=== PATIENT | male | born 1940 | race Caucasian/White ===

== ENCOUNTER 2019-06-30 08:15 | Outpatient (RCR) | payer MEDICARE, SELFPAY ==
--- NOTE | 2019-02-03 17:52 | PT.OIE ---
Current Diagnoses Polyneuropathy, unspecified (02/03/19) Spinal stenosis, lumbar region without neurogenic claudication (02/03/19) Difficulty in walking, not elsewhere classified (02/03/19) Other abnormalities of gait and mobility (02/03/19) Weakness (02/03/19) Visit Care Team Role Provider Type Selena Bishop MD Attending Provider Non-Staff Primary Care Provider Specialty: Medical Address: [address] [place] [address], [id number] Email: Physical Therapy Initial Evaluation PT-OP-A Visit Information Start: 02/02/19 17:43 Freq: Status: Active Protocol: Document 02/03/19 11:22 [facility] (Rec: 02/03/19 12:13 [facility] [id number]) Out-Patient Physical Therapy Visit Information Visit Information Visit Type Initial Evaluation Visit Start Time 11:20 Visit Stop Time 12:00 Total Visit Minutes 40 Visit Number 1 Number of SENIOR CATEGORY MANAGER Visits 0 PT-OP-B Current Condition Start: 02/02/19 17:43 Freq: Status: Active Protocol: Document 02/03/19 11:22 [facility] (Rec: 02/03/19 12:13 [facility] [id number]) Current Condition History of Current Condition Onset Date >30 year back pain Current Complaints back pain & dec balance History of Current Condition Pt reports he wants to walk around without falling. Pt reports he has 2-3 per month and typically gets momentum fwd and cannot control that so falls fwd. No difference based on terrain. Pt reports history of back pain for 30 years with 2 fusion surgies and a laminectomy the 3rd surgery. Pt has a pain stimulator in his back which helped at first but as he got used it, its been less effective. Pt reprots it was done about 6 years ago. Pt reports he goes 1x.week to the [facility], he gets in the pool. Pt reports PT has been helpful in the past. Pt reports balance has been getting worse of the past year or 2 especially recently. Prior Treatments and Tests multiple bouts of PT, mult shots, mult MRIs Treatment Goals Patient/Caregiver Goals Dec falls, Be able to walk further distances (to car with ease, down driveway), get in and out of chairs easier, get in and out of bed and roll easier PT-OP-C Subjective Start: 02/02/19 17:43 Freq: Status: Active Protocol: Document 02/03/19 11:22 [facility] (Rec: 02/03/19 12:13 [facility] [id number]) Patient Questionnaires Oswestry Low Back Index Oswestry Score 52 Oswestry Impairment 40 to 59% Impaired (Score 40- 59) OP-PT Pain Assessment Location low back Pain Location Details upper and lower back Intensity 7 Scale Used Numeric (1 - 10) Description Sharp,Spasm,With Movement Frequency Daily Pain Duration a few min after stopping in LB , mid back pain takes time Pain Aggravating Factors Standing,Walking Other Pain Aggravating Factors getting out of chair, house cleaning(sweep & vaccuum), Pain Alleviating Factors Cold,Heat,Sitting PT-OP-D Balance Start: 02/02/19 17:43 Freq: Status: Active Protocol: Document 02/03/19 11:22 [facility] (Rec: 02/03/19 12:13 [facility] [id number]) Balance Tests De La Rosa Balance Test De La Rosa Balance Test Score 26 De La Rosa Impairment Rating 40 to 59% Impaired (Score 23- 33) PT-OP-F Manual Assessment Start: 02/02/19 17:43 Freq: Status: Active Protocol: Document 02/03/19 11:22 [facility] (Rec: 02/03/19 12:13 [facility] [id number]) Manual Assessments Soft Tissue Assessment Soft Tissue Mobility Assessment significant scar tissue tightness, ES B & QL B tightness PT-OP-G Mobility & Gait Start: 02/02/19 17:43 Freq: Status: Active Protocol: Document 02/03/19 11:22 [facility] (Rec: 02/03/19 12:13 [facility] [id number]) OP Gait Assessment Comments Gait Comments Pt amb with SPC with B lat leaning & fwd leaning. Dec overall push off PT-OP-M Strength Start: 02/02/19 17:43 Freq: Status: Active Protocol: Document 02/03/19 11:22 [facility] (Rec: 02/03/19 12:13 [facility] [id number]) Hip Strength Hip Manual Muscle Testing Left Flexion (L2) 4- Good- Extension (S1) 2+ Poor+ Abduction 3+ Fair+ External Rotation 3+ Fair+ Internal Rotation 3+ Fair+ Right Flexion (L2) 4 Good Extension (S1) 3 Fair Abduction 3+ Fair+ External Rotation 4- Good- Internal Rotation 4- Good- Knee Strength Knee Manual Muscle Testing Left Flexion (S2) 4 Good Extension (L3) 4+ Good+ Right Flexion (S2) 4 Good Extension (L3) 4 Good Ankle/Foot Strength Ankle and Foot Manual Muscle Testing Left Dorsiflexion (L4) 5 Normal Plantarflexion (S1) 5 Normal Right Dorsiflexion (L4) 4+ Good+ Plantarflexion (S1) 4+ Good+ Comments seated PF testing PT-OP-Q Treatments Start: 02/02/19 17:43 Freq: Status: Active Protocol: Document 02/03/19 11:22 [facility] (Rec: 02/03/19 12:13 [facility] [id number]) Self-Care/Home Management Treatment Education Patient Education Home Exercise Program Other Education edu to do sit to stands PT-OP-T Assessment and Plan Start: 02/02/19 17:43 Freq: Status: Active Protocol: Document 02/03/19 11:22 [facility] (Rec: 02/03/19 12:13 [facility] [id number]) Physical Therapy Assessment Rehab Potential Rehabilitation Potential Good Evaluation Complexity Number of Personal Factors/Comorbidities 3 or More Number of Body Systems Impaired 4 or More Clinical Presentation at Evaluation Evolving Impairments Impairments Activity Tolerance,Balance, Functional Activities, Functional Mobility,Gait,Pain, Posture,ROM,Soft Tissue Mobility,Strength,Transfers Goals gait Custodial Goal (LTG) Pt will be able to walk for 10 min without requiring a rest break. LTG Duration 05/06/18 mobility Short Term Goal (STG) Pt will be indep with log roll technique and report less difficulty with getting in and out of bed and rolling in bed . STG Duration 03/18/19 Picker Machine Operator Goal (LTG) Pt will be able to get in and out of a chair without use of UE LTG Duration 05/06/18 strength Short Term Goal (STG) Pt will be indep with HEP and will be going to gym 2-3x/week . STG Duration 03/18/19 Picker Machine Operator Goal (LTG) Pt will improve LE strength to at least 4+/5 in order to allow pt to return to typical activities and ADLs with greater ease. LTG Duration 05/06/18 fall risk Short Term Goal (STG) Pt will improve DE LA ROSA score to 35/56 to show dec fall risk with AD. STG Duration 03/18/19 Picker Machine Operator Goal (LTG) Pt will improve DE LA ROSA score to 50/56 in order to show pt to be less liekly to fall in the community. LTG Duration 05/06/18 Assessment Summary Assessment Pt presents with LBP and B neuropathy in feet with increased instances of falls and dec mobility at home. Pt is unable to walk from his car into a building or down his driveway without signifcant difficulty and is having on average 2-3 falls per month. He has overall dec LE and core strength and impaired gait and balance. He would benefit from skilled PT to improve his pain, improve his strength & ROM and improve gait mechanics & balance. Physical Therapy Plan Frequency and Duration Frequency of Treatment 2x/Week Duration of Treatment 3 months Plan of Care Start Date 02/03/19 Plan of Care End Date 05/06/18 Therapeutic Interventions Therapeutic Interventions Aquatic Therapy,Balance Training,Gait Training,Home Exercise Program,Joint Mobilizations,Manual Therapy, Neuromuscular Re-education, Patient/Caregiver Education, Self-Care/Home Management,Soft Tissue Mobilization,Taping, Therapeutic Activities, Therapeutic Exercises Modalities Cold Pack/Ice Massage,Electric Stimulation,Hot Packs, Infrared Therapy,Ultrasound Next Visit Focus/Plan Next Note Type Treatment Note Next Visit Plan s/l hip abd & clamshells, bridging if tolerated, Tabd stability, balance board, recumbant bike, scar STM
--- NOTE | 2019-02-08 14:34 | PT.OTN ---
Current Diagnoses Polyneuropathy, unspecified (02/08/19) Spinal stenosis, lumbar region without neurogenic claudication (02/08/19) Difficulty in walking, not elsewhere classified (02/08/19) Other abnormalities of gait and mobility (02/08/19) Weakness (02/08/19) Physical Therapy Treatment Note PT-OP-A Visit Information Start: 02/02/19 17:43 Freq: Status: Active Protocol: Document 02/08/19 13:54 [facility] (Rec: 02/08/19 14:33 [facility] [id number]) Out-Patient Physical Therapy Visit Information Visit Information Visit Type Treatment Note Visit Start Time 13:47 Visit Stop Time 14:38 Total Visit Minutes 51 Visit Number 1 Number of PROFESSOR OF ENGINEERING Visits 0 PT-OP-B Current Condition Start: 02/02/19 17:43 Freq: Status: Active Protocol: Document 02/03/19 11:22 [facility] (Rec: 02/03/19 12:13 [facility] [id number]) Current Condition History of Current Condition Onset Date >30 year back pain Current Complaints back pain & dec balance History of Current Condition Pt reports he wants to walk around without falling. Pt reports he has 2-3 per month and typically gets momentum fwd and cannot control that so falls fwd. No difference based on terrain. Pt reports history of back pain for 30 years with 2 fusion surgies and a laminectomy the 3rd surgery. Pt has a pain stimulator in his back which helped at first but as he got used it, its been less effective. Pt reprots it was done about 6 years ago. Pt reports he goes 1x.week to the [facility], he gets in the pool. Pt reports PT has been helpful in the past. Pt reports balance has been getting worse of the past year or 2 especially recently. Prior Treatments and Tests multiple bouts of PT, mult shots, mult MRIs Treatment Goals Patient/Caregiver Goals Dec falls, Be able to walk further distances (to car with ease, down driveway), get in and out of chairs easier, get in and out of bed and roll easier PT-OP-C Subjective Start: 02/02/19 17:43 Freq: Status: Active Protocol: Document 02/08/19 13:54 [facility] (Rec: 02/08/19 14:33 [facility] [id number]) OP-PT Subjective Patient Comments Patient Comments Pt reports he did not go to the pool this weekend. PT-OP-D Balance Start: 02/02/19 17:43 Freq: Status: Active Protocol: Document 02/03/19 11:22 [facility] (Rec: 02/03/19 12:13 [facility] [id number]) Balance Tests De La Rosa Balance Test De La Rosa Balance Test Score 26 De La Rosa Impairment Rating 40 to 59% Impaired (Score 23- 33) PT-OP-F Manual Assessment Start: 02/02/19 17:43 Freq: Status: Active Protocol: Document 02/03/19 11:22 [facility] (Rec: 02/03/19 12:13 [facility] [id number]) Manual Assessments Soft Tissue Assessment Soft Tissue Mobility Assessment significant scar tissue tightness, ES B & QL B tightness PT-OP-G Mobility & Gait Start: 02/02/19 17:43 Freq: Status: Active Protocol: Document 02/03/19 11:22 [facility] (Rec: 02/03/19 12:13 [facility] [id number]) OP Gait Assessment Comments Gait Comments Pt amb with SPC with B lat leaning & fwd leaning. Dec overall push off PT-OP-M Strength Start: 02/02/19 17:43 Freq: Status: Active Protocol: Document 02/03/19 11:22 [facility] (Rec: 02/03/19 12:13 [facility] [id number]) Hip Strength Hip Manual Muscle Testing Left Flexion (L2) 4- Good- Extension (S1) 2+ Poor+ Abduction 3+ Fair+ External Rotation 3+ Fair+ Internal Rotation 3+ Fair+ Right Flexion (L2) 4 Good Extension (S1) 3 Fair Abduction 3+ Fair+ External Rotation 4- Good- Internal Rotation 4- Good- Knee Strength Knee Manual Muscle Testing Left Flexion (S2) 4 Good Extension (L3) 4+ Good+ Right Flexion (S2) 4 Good Extension (L3) 4 Good Ankle/Foot Strength Ankle and Foot Manual Muscle Testing Left Dorsiflexion (L4) 5 Normal Plantarflexion (S1) 5 Normal Right Dorsiflexion (L4) 4+ Good+ Plantarflexion (S1) 4+ Good+ Comments seated PF testing PT-OP-Q Treatments Start: 02/02/19 17:43 Freq: Status: Active Protocol: Document 02/08/19 13:54 [facility] (Rec: 02/08/19 14:33 [facility] [id number]) Cardio Equipment Recumbent Elliptical (Biodex) Duration (Minutes) 4 Resistance 3 Recumbent Bicycle Duration (Minutes) 3 Resistance 3 Seat Position 7 Gym Equipment Shuttle Recovery Bilateral Squats Resistance 75# Shuttle Recovery Platform Stable Reps/Time 2x15 Therapeutic Exercises Supine Exercises bridge Side bilateral Reps/Minutes 15 Comments focus on core contraction Sidelying Exercises ER Sidelying Exercise Name clamshell Side bilateral Reps/Minutes 15 hip abd Side bilateral Reps/Minutes 15 Standing Exercises sit<>stand Reps/Minutes 10 Comments arms as needed from mat table Manual Therapy Treatment Soft Tissue Mobilization Scar tissue Mobilization Type Myofascial Release,Rolling, Strumming Intensity/Depth Moderate Body Position Sidelying Comments plunger & soft tissue PT-OP-R Modalities Start: 02/02/19 17:43 Freq: Status: Active Protocol: Document 02/08/19 13:54 [facility] (Rec: 02/08/19 14:34 [facility] [id number]) Hot Pack/Cold Pack Treatment Cold Pack Location lumbar Patient Position Sidelying Treatment Duration (minutes) 10 PT-OP-T Assessment and Plan Start: 02/02/19 17:43 Freq: Status: Active Protocol: Document 02/08/19 13:54 [facility] (Rec: 02/08/19 14:33 [facility] [id number]) Physical Therapy Assessment Goals gait Fdc Goal (LTG) Pt will be able to walk for 10 min without requiring a rest break. LTG Duration 05/06/18 mobility Short Term Goal (STG) Pt will be indep with log roll technique and report less difficulty with getting in and out of bed and rolling in bed . STG Duration 03/18/19 Fdc Goal (LTG) Pt will be able to get in and out of a chair without use of UE LTG Duration 05/06/18 strength Short Term Goal (STG) Pt will be indep with HEP and will be going to gym 2-3x/week . STG Duration 03/18/19 Lead Ingot Molder Goal (LTG) Pt will improve LE strength to at least 4+/5 in order to allow pt to return to typical activities and ADLs with greater ease. LTG Duration 05/06/18 fall risk Short Term Goal (STG) Pt will improve DE LA ROSA score to 35/56 to show dec fall risk with AD. STG Duration 03/18/19 Lead Ingot Molder Goal (LTG) Pt will improve DE LA ROSA score to 50/56 in order to show pt to be less liekly to fall in the community. LTG Duration 05/06/18 Assessment Summary Assessment Pt required cueing for form & core aciviation throughout exercises. He was educated and was receptive to some gym equipment that would be appropriate for him to use. Scar is significantly restricted and pt was able to tolerate without inc pain stm to the area Physical Therapy Plan Frequency and Duration Frequency of Treatment 2x/Week Duration of Treatment 3 months Plan of Care Start Date 02/03/19 Plan of Care End Date 05/06/18 Next Visit Focus/Plan Next Note Type Treatment Note Next Visit Plan review HEP, cont to work on balance, scar STM
--- NOTE | 2019-02-10 16:02 | PT.OTN ---
Current Diagnoses Polyneuropathy, unspecified (02/10/19) Spinal stenosis, lumbar region without neurogenic claudication (02/10/19) Difficulty in walking, not elsewhere classified (02/10/19) Other abnormalities of gait and mobility (02/10/19) Weakness (02/10/19) Physical Therapy Treatment Note PT-OP-A Visit Information Start: 02/02/19 17:43 Freq: Status: Active Protocol: Document 02/10/19 12:56 [facility] (Rec: 02/10/19 13:24 [facility] [id number]) Out-Patient Physical Therapy Visit Information Visit Information Visit Type Treatment Note Visit Start Time 11:21 Visit Stop Time 12:13 Total Visit Minutes 52 Visit Number 3 Number of DIRECTOR TEEN POST Visits 0 PT-OP-B Current Condition Start: 02/02/19 17:43 Freq: Status: Active Protocol: Document 02/03/19 11:22 [facility] (Rec: 02/03/19 12:13 [facility] [id number]) Current Condition History of Current Condition Onset Date >30 year back pain Current Complaints back pain & dec balance History of Current Condition Pt reports he wants to walk around without falling. Pt reports he has 2-3 per month and typically gets momentum fwd and cannot control that so falls fwd. No difference based on terrain. Pt reports history of back pain for 30 years with 2 fusion surgies and a laminectomy the 3rd surgery. Pt has a pain stimulator in his back which helped at first but as he got used it, its been less effective. Pt reprots it was done about 6 years ago. Pt reports he goes 1x.week to the [facility], he gets in the pool. Pt reports PT has been helpful in the past. Pt reports balance has been getting worse of the past year or 2 especially recently. Prior Treatments and Tests multiple bouts of PT, mult shots, mult MRIs Treatment Goals Patient/Caregiver Goals Dec falls, Be able to walk further distances (to car with ease, down driveway), get in and out of chairs easier, get in and out of bed and roll easier PT-OP-C Subjective Start: 02/02/19 17:43 Freq: Status: Active Protocol: Document 02/10/19 12:56 [facility] (Rec: 02/10/19 13:24 [facility] [id number]) OP-PT Subjective Patient Comments Patient Comments Pt remarked that he has been going to the gym with his since the last visit. He commented that he has experienced some soreness since his last PT session and time at the gym. He has been compliant with his HEP. PT-OP-D Balance Start: 02/02/19 17:43 Freq: Status: Active Protocol: Document 02/03/19 11:22 [facility] (Rec: 02/03/19 12:13 [facility] [id number]) Balance Tests De La Rosa Balance Test De La Rosa Balance Test Score 26 De La Rosa Impairment Rating 40 to 59% Impaired (Score 23- 33) PT-OP-F Manual Assessment Start: 02/02/19 17:43 Freq: Status: Active Protocol: Document 02/03/19 11:22 [facility] (Rec: 02/03/19 12:13 [facility] [id number]) Manual Assessments Soft Tissue Assessment Soft Tissue Mobility Assessment significant scar tissue tightness, ES B & QL B tightness PT-OP-G Mobility & Gait Start: 02/02/19 17:43 Freq: Status: Active Protocol: Document 02/03/19 11:22 [facility] (Rec: 02/03/19 12:13 [facility] [id number]) OP Gait Assessment Comments Gait Comments Pt amb with SPC with B lat leaning & fwd leaning. Dec overall push off PT-OP-M Strength Start: 02/02/19 17:43 Freq: Status: Active Protocol: Document 02/03/19 11:22 [facility] (Rec: 02/03/19 12:13 [facility] [id number]) Hip Strength Hip Manual Muscle Testing Left Flexion (L2) 4- Good- Extension (S1) 2+ Poor+ Abduction 3+ Fair+ External Rotation 3+ Fair+ Internal Rotation 3+ Fair+ Right Flexion (L2) 4 Good Extension (S1) 3 Fair Abduction 3+ Fair+ External Rotation 4- Good- Internal Rotation 4- Good- Knee Strength Knee Manual Muscle Testing Left Flexion (S2) 4 Good Extension (L3) 4+ Good+ Right Flexion (S2) 4 Good Extension (L3) 4 Good Ankle/Foot Strength Ankle and Foot Manual Muscle Testing Left Dorsiflexion (L4) 5 Normal Plantarflexion (S1) 5 Normal Right Dorsiflexion (L4) 4+ Good+ Plantarflexion (S1) 4+ Good+ Comments seated PF testing PT-OP-Q Treatments Start: 02/02/19 17:43 Freq: Status: Active Protocol: Document 02/10/19 12:56 [facility] (Rec: 02/10/19 13:24 [facility] [id number]) Cardio Equipment Recumbent Stepper (Sci-Fit) Duration (Minutes) 6 Resistance 4 Gym Equipment Shuttle Recovery Bilateral Squats Resistance 75# Shuttle Recovery Platform Stable Reps/Time 2x20 Shuttle Balance blue Details normal, narrow BRENNON, semi tandem Reps/Duration 1-2 min holds in each position Comments this was an acceptable challenge for the pt to maintain balance Therapeutic Exercises Supine Exercises bridge Side bilateral Reps/Minutes 15 Comments cued for core contraction, arms elevated, L2 band around knees for aBd Sidelying Exercises clam shells Sidelying Exercise Name clam shells Side left Resistance L2 Reps/Minutes 20 Comments did not aggravate pt low back pain hip abd Side bilateral Resistance L2 around knees Reps/Minutes 20 Comments straight left leg hip aB aggravated back pain, so that side withheld Manual Therapy Treatment Soft Tissue Mobilization Scar tissue Body Location low back Mobilization Type Myofascial Release, Oscillations,Rolling,Strumming ,Sustained Pressure Intensity/Depth Moderate Body Position Sidelying Comments plunger & soft tissue PT-OP-R Modalities Start: 02/02/19 17:43 Freq: Status: Active Protocol: Document 02/10/19 12:56 [facility] (Rec: 02/10/19 13:24 [facility] [id number]) Hot Pack/Cold Pack Treatment Cold Pack Location lumbar Patient Position Sidelying Treatment Duration (minutes) 10 Patient Tolerance Good Comments check pt's skin prior to icing and post-application with no significant findings. Pt typically responds well to ice and reoprts that he uses it at home to relieve pain PT-OP-T Assessment and Plan Start: 02/02/19 17:43 Freq: Status: Active Protocol: Document 02/10/19 12:56 [facility] (Rec: 02/10/19 13:24 [facility] [id number]) Physical Therapy Assessment Goals gait Fdc Goal (LTG) Pt will be able to walk for 10 min without requiring a rest break. LTG Duration 05/06/19 mobility Short Term Goal (STG) Pt will be indep with log roll technique and report less difficulty with getting in and out of bed and rolling in bed . STG Duration 03/18/19 Speech Language Therapist Goal (LTG) Pt will be able to get in and out of a chair without use of UE LTG Duration 05/06/19 strength Short Term Goal (STG) Pt will be indep with HEP and will be going to gym 2-3x/week . STG Duration 03/18/19 Fdc Goal (LTG) Pt will improve LE strength to at least 4+/5 in order to allow pt to return to typical activities and ADLs with greater ease. LTG Duration 05/06/19 fall risk Short Term Goal (STG) Pt will improve DE LA ROSA score to 35/56 to show dec fall risk with AD. STG Duration 03/18/19 Fdc Goal (LTG) Pt will improve DE LA ROSA score to 50/56 in order to show pt to be less liekly to fall in the community. LTG Duration 05/06/19 Assessment Summary Assessment Reviewed with pt names, resources, and proper use of gym equipment that would be appropriate for pt. Pt has been compliant with his HEP and has been managing to go to the gym to workout. He displayed increased ability to participate in balance activities, but was still acceptably challenged and required cueing for core activation. Straight leg aB in sidelying was provocative to pt's pain for left leg, so activity was withheld and replaced with clamshells. Pt' s scar seems to restrict and give a tight feeling for many leg movements, but showed improvement folling scar mobs and soft tissue massage. Physical Therapy Plan Next Visit Focus/Plan Next Note Type Treatment Note Next Visit Plan continue to work on balance activities to challenge pt, scar STM, core stabilization exercises, hip stabilizer strengthening
--- NOTE | 2019-02-15 18:36 | PT.OTN ---
Current Diagnoses Polyneuropathy, unspecified (02/15/19) Spinal stenosis, lumbar region without neurogenic claudication (02/15/19) Difficulty in walking, not elsewhere classified (02/15/19) Other abnormalities of gait and mobility (02/15/19) Weakness (02/15/19) Physical Therapy Treatment Note PT-OP-A Visit Information Start: 02/02/19 17:43 Freq: Status: Active Protocol: Document 02/15/19 10:33 MT (Rec: 02/15/19 13:21 MT [email or web address]) Out-Patient Physical Therapy Visit Information Visit Information Visit Start Time 10:33 Visit Stop Time 11:24 Total Visit Minutes 51 Visit Number 4 Number of BOARDMARKER Visits 0 PT-OP-B Current Condition Start: 02/02/19 17:43 Freq: Status: Active Protocol: Document 02/03/19 11:22 [facility] (Rec: 02/03/19 12:13 [facility] [id number]) Current Condition History of Current Condition Onset Date >30 year back pain Current Complaints back pain & dec balance History of Current Condition Pt reports he wants to walk around without falling. Pt reports he has 2-3 per month and typically gets momentum fwd and cannot control that so falls fwd. No difference based on terrain. Pt reports history of back pain for 30 years with 2 fusion surgies and a laminectomy the 3rd surgery. Pt has a pain stimulator in his back which helped at first but as he got used it, its been less effective. Pt reprots it was done about 6 years ago. Pt reports he goes 1x.week to the [facility], he gets in the pool. Pt reports PT has been helpful in the past. Pt reports balance has been getting worse of the past year or 2 especially recently. Prior Treatments and Tests multiple bouts of PT, mult shots, mult MRIs Treatment Goals Patient/Caregiver Goals Dec falls, Be able to walk further distances (to car with ease, down driveway), get in and out of chairs easier, get in and out of bed and roll easier PT-OP-C Subjective Start: 02/02/19 17:43 Freq: Status: Active Protocol: Document 02/15/19 10:33 MT (Rec: 02/15/19 13:21 MT [email or web address]) OP-PT Subjective Patient Comments Patient Comments Pt remarked that he has been able to go to the gym a couple times this week, but some of the machines were busy. Pt stated that he has been feeling dizzy a lot lately. He was dizzy standing up to walk to the clinic. Pt and pt 's reported that pt has experienced 2 falls since the last visit. once picking up an object from the floor and once from the bed when his sat down on the oterh side. PT-OP-D Balance Start: 02/02/19 17:43 Freq: Status: Active Protocol: Document 02/03/19 11:22 [facility] (Rec: 02/03/19 12:13 [facility] [id number]) Balance Tests De La Rosa Balance Test De La Rosa Balance Test Score 26 De La Rosa Impairment Rating 40 to 59% Impaired (Score 23- 33) PT-OP-F Manual Assessment Start: 02/02/19 17:43 Freq: Status: Active Protocol: Document 02/03/19 11:22 [facility] (Rec: 02/03/19 12:13 [facility] [id number]) Manual Assessments Soft Tissue Assessment Soft Tissue Mobility Assessment significant scar tissue tightness, ES B & QL B tightness PT-OP-G Mobility & Gait Start: 02/02/19 17:43 Freq: Status: Active Protocol: Document 02/03/19 11:22 [facility] (Rec: 02/03/19 12:13 [facility] [id number]) OP Gait Assessment Comments Gait Comments Pt amb with SPC with B lat leaning & fwd leaning. Dec overall push off PT-OP-M Strength Start: 02/02/19 17:43 Freq: Status: Active Protocol: Document 02/03/19 11:22 [facility] (Rec: 02/03/19 12:13 [facility] [id number]) Hip Strength Hip Manual Muscle Testing Left Flexion (L2) 4- Good- Extension (S1) 2+ Poor+ Abduction 3+ Fair+ External Rotation 3+ Fair+ Internal Rotation 3+ Fair+ Right Flexion (L2) 4 Good Extension (S1) 3 Fair Abduction 3+ Fair+ External Rotation 4- Good- Internal Rotation 4- Good- Knee Strength Knee Manual Muscle Testing Left Flexion (S2) 4 Good Extension (L3) 4+ Good+ Right Flexion (S2) 4 Good Extension (L3) 4 Good Ankle/Foot Strength Ankle and Foot Manual Muscle Testing Left Dorsiflexion (L4) 5 Normal Plantarflexion (S1) 5 Normal Right Dorsiflexion (L4) 4+ Good+ Plantarflexion (S1) 4+ Good+ Comments seated PF testing PT-OP-Q Treatments Start: 02/02/19 17:43 Freq: Status: Active Protocol: Document 02/15/19 10:33 MT (Rec: 02/15/19 13:21 MT [email or web address]) Gym Equipment Shuttle Recovery Bilateral Squats Resistance 87# Shuttle Recovery Platform Stable Reps/Time 2x20 Shuttle Balance blue Details fwd/bck; side/side Reps/Duration 1-2 min holds in each position Comments Pt was challenged to keep his balance during this activity. Manual Therapy Treatment Soft Tissue Mobilization Scar tissue Body Location low back Mobilization Type Myofascial Release, Oscillations,Rolling,Strumming ,Sustained Pressure Intensity/Depth Moderate Body Position Sidelying Comments plunger & soft tissue Self-Care/Home Management Treatment Education Patient Education Fall Risk,Safety Activities Self-Care/Home Management Activities Pt was experiencing dizziness and was staggering while getting up to walk back to gym . Pt was asked to sit back down and blood pressure was assessed and found to be 139/ 65. Pt reported his dizziness had subsided before BP reading was completed. PT-OP-R Modalities Start: 02/02/19 17:43 Freq: Status: Active Protocol: Document 02/15/19 10:33 MT (Rec: 02/15/19 13:21 MT [email or web address]) Hot Pack/Cold Pack Treatment Cold Pack Location lumbar Patient Position Sidelying Treatment Duration (minutes) 10 Patient Tolerance Good Comments check pt's skin prior to icing and post-application with no significant findings. Pt typically responds well to ice and reoprts that he uses it at home to relieve pain PT-OP-T Assessment and Plan Start: 02/02/19 17:43 Freq: Status: Active Protocol: Document 02/15/19 10:33 MT (Rec: 02/15/19 13:21 MT [email or web address]) Physical Therapy Assessment Goals gait Furniture And Bedding Inspector Goal (LTG) Pt will be able to walk for 10 min without requiring a rest break. LTG Duration 05/06/19 mobility Short Term Goal (STG) Pt will be indep with log roll technique and report less difficulty with getting in and out of bed and rolling in bed . STG Duration 03/18/19 Group Home Goal (LTG) Pt will be able to get in and out of a chair without use of UE LTG Duration 05/06/19 strength Short Term Goal (STG) Pt will be indep with HEP and will be going to gym 2-3x/week . STG Duration 03/18/19 Furniture And Bedding Inspector Goal (LTG) Pt will improve LE strength to at least 4+/5 in order to allow pt to return to typical activities and ADLs with greater ease. LTG Duration 05/06/19 fall risk Short Term Goal (STG) Pt will improve DE LA ROSA score to 35/56 to show dec fall risk with AD. STG Duration 03/18/19 Group Home Goal (LTG) Pt will improve DE LA ROSA score to 50/56 in order to show pt to be less liekly to fall in the community. LTG Duration 05/06/19 Assessment Summary Assessment Pt has been experiencing increased dizziness. He seemed to have a greater challenge in maintaining his balance during balance activities that were not so challengin last time and staggered often from sitting to standing transitions. Pt was advised to take his time in between standing and sitting and to utilize his microbiology lab assistant device for reaching objects out of reach in order to reduce risks of falls. Pt commented that he has been getting pain in his thoracic spine, which responded well to STM at the superior portion of his scar. Physical Therapy Plan Next Visit Focus/Plan Next Note Type Treatment Note Next Visit Plan continue to work on balance activities to challenge pt, scar STM, core stabilization exercises, hip stabilizer strengthening
--- NOTE | 2019-02-17 15:25 | PT.OTN ---
Current Diagnoses Polyneuropathy, unspecified (02/17/19) Spinal stenosis, lumbar region without neurogenic claudication (02/17/19) Difficulty in walking, not elsewhere classified (02/17/19) Other abnormalities of gait and mobility (02/17/19) Weakness (02/17/19) Physical Therapy Treatment Note PT-OP-A Visit Information Start: 02/02/19 17:43 Freq: Status: Active Protocol: Document 02/17/19 10:36 MT (Rec: 02/17/19 14:04 MT [email or web address]) Out-Patient Physical Therapy Visit Information Visit Information Visit Type Treatment Note Visit Start Time 10:36 Visit Stop Time 11:25 Total Visit Minutes 49 Visit Number 5 Number of CHARGING OPERATOR Visits 0 PT-OP-B Current Condition Start: 02/02/19 17:43 Freq: Status: Active Protocol: Document 02/03/19 11:22 [facility] (Rec: 02/03/19 12:13 [facility] [id number]) Current Condition History of Current Condition Onset Date >30 year back pain Current Complaints back pain & dec balance History of Current Condition Pt reports he wants to walk around without falling. Pt reports he has 2-3 per month and typically gets momentum fwd and cannot control that so falls fwd. No difference based on terrain. Pt reports history of back pain for 30 years with 2 fusion surgies and a laminectomy the 3rd surgery. Pt has a pain stimulator in his back which helped at first but as he got used it, its been less effective. Pt reprots it was done about 6 years ago. Pt reports he goes 1x.week to the [facility], he gets in the pool. Pt reports PT has been helpful in the past. Pt reports balance has been getting worse of the past year or 2 especially recently. Prior Treatments and Tests multiple bouts of PT, mult shots, mult MRIs Treatment Goals Patient/Caregiver Goals Dec falls, Be able to walk further distances (to car with ease, down driveway), get in and out of chairs easier, get in and out of bed and roll easier PT-OP-C Subjective Start: 02/02/19 17:43 Freq: Status: Active Protocol: Document 02/17/19 10:36 MT (Rec: 02/17/19 14:04 MT [email or web address]) OP-PT Subjective Patient Comments Patient Comments Pt was able to go to the gym yesterday to exercise and says that it has been going well. He reoprts continuing to feel dizzy and not having good balance over the past couple of days PT-OP-D Balance Start: 02/02/19 17:43 Freq: Status: Active Protocol: Document 02/03/19 11:22 [facility] (Rec: 02/03/19 12:13 [facility] [id number]) Balance Tests De La Rosa Balance Test De La Rosa Balance Test Score 26 De La Rosa Impairment Rating 40 to 59% Impaired (Score 23- 33) PT-OP-F Manual Assessment Start: 02/02/19 17:43 Freq: Status: Active Protocol: Document 02/03/19 11:22 [facility] (Rec: 02/03/19 12:13 [facility] [id number]) Manual Assessments Soft Tissue Assessment Soft Tissue Mobility Assessment significant scar tissue tightness, ES B & QL B tightness PT-OP-G Mobility & Gait Start: 02/02/19 17:43 Freq: Status: Active Protocol: Document 02/03/19 11:22 [facility] (Rec: 02/03/19 12:13 [facility] [id number]) OP Gait Assessment Comments Gait Comments Pt amb with SPC with B lat leaning & fwd leaning. Dec overall push off PT-OP-M Strength Start: 02/02/19 17:43 Freq: Status: Active Protocol: Document 02/03/19 11:22 [facility] (Rec: 02/03/19 12:13 [facility] [id number]) Hip Strength Hip Manual Muscle Testing Left Flexion (L2) 4- Good- Extension (S1) 2+ Poor+ Abduction 3+ Fair+ External Rotation 3+ Fair+ Internal Rotation 3+ Fair+ Right Flexion (L2) 4 Good Extension (S1) 3 Fair Abduction 3+ Fair+ External Rotation 4- Good- Internal Rotation 4- Good- Knee Strength Knee Manual Muscle Testing Left Flexion (S2) 4 Good Extension (L3) 4+ Good+ Right Flexion (S2) 4 Good Extension (L3) 4 Good Ankle/Foot Strength Ankle and Foot Manual Muscle Testing Left Dorsiflexion (L4) 5 Normal Plantarflexion (S1) 5 Normal Right Dorsiflexion (L4) 4+ Good+ Plantarflexion (S1) 4+ Good+ Comments seated PF testing PT-OP-Q Treatments Start: 02/02/19 17:43 Freq: Status: Active Protocol: Document 02/17/19 10:36 MT (Rec: 02/17/19 14:04 MT [email or web address]) Cardio Equipment Recumbent Stepper (Sci-Fit) Duration (Minutes) 8 Resistance 6 Gym Equipment Shuttle Balance blue Details fwd/bck; side/side, WBOS and NBOS Reps/Duration 1-2 min holds in each position Comments Pt was very stable with the fwd/bck stabilization. He was challenged by the NBOS activities requiring Shu at times to prevent backward lean . Therapeutic Exercises Supine Exercises bridge Side bilateral Reps/Minutes 15 Comments cued for core contraction, arms elevated, L2 band around knees for aBd Standing Exercises 4 way hip Standing Exercise Name abd/ext Side bilateral Resistance none Reps/Minutes 15 per side and direction Comments Pt demonstrated increased difficulty when performing the movement on L side Manual Therapy Treatment Soft Tissue Mobilization Scar tissue Body Location low back Mobilization Type Myofascial Release, Oscillations,Rolling,Strumming ,Sustained Pressure Intensity/Depth Moderate Body Position Sidelying Comments pt reported that his mid back felt better after receiving STM to the area last friday. His tightness was mostly in his lower back. Self-Care/Home Management Treatment Activities Self-Care/Home Management Activities Pt was experiencing dizziness when immediately getting up to walk back to gym. Pt was asked to sit back down and blood pressure was assessed and found to be 136/80. PT-OP-R Modalities Start: 02/02/19 17:43 Freq: Status: Active Protocol: Document 02/17/19 10:36 MT (Rec: 02/17/19 14:05 MT [email or web address]) Hot Pack/Cold Pack Treatment Cold Pack Location lumbar Patient Position Sidelying Treatment Duration (minutes) 10 Patient Tolerance Good Comments check pt's skin prior to icing and post-application with no significant findings. Pt typically responds well to ice and reoprts that he uses it at home to relieve pain PT-OP-T Assessment and Plan Start: 02/02/19 17:43 Freq: Status: Active Protocol: Document 02/17/19 10:36 MT (Rec: 02/17/19 14:04 MT [email or web address]) Physical Therapy Assessment Goals gait Alf Goal (LTG) Pt will be able to walk for 10 min without requiring a rest break. LTG Duration 05/06/19 mobility Short Term Goal (STG) Pt will be indep with log roll technique and report less difficulty with getting in and out of bed and rolling in bed . STG Duration 03/18/19 Alf Goal (LTG) Pt will be able to get in and out of a chair without use of UE LTG Duration 05/06/19 strength Short Term Goal (STG) Pt will be indep with HEP and will be going to gym 2-3x/week . STG Duration 03/18/19 Alf Goal (LTG) Pt will improve LE strength to at least 4+/5 in order to allow pt to return to typical activities and ADLs with greater ease. LTG Duration 05/06/19 fall risk Short Term Goal (STG) Pt will improve DE LA ROSA score to 35/56 to show dec fall risk with AD. STG Duration 03/18/19 Tax Expert Goal (LTG) Pt will improve DE LA ROSA score to 50/56 in order to show pt to be less liekly to fall in the community. LTG Duration 05/06/19 Assessment Summary Assessment Pt continues to be reporting dizziness. He is challenged with balance activities, especially with NBOS. Pt's pain in his thoracic spine from last session was relieved from STM and did not return. His scar mobility and back pain improved with STM and subsequent icing. Physical Therapy Plan Next Visit Focus/Plan Next Note Type Treatment Note Next Visit Plan continue to work on balance activities with challenge in NBOS, core stabilization, hip stabilization strength
--- NOTE | 2019-02-25 13:48 | PT.OTN ---
Current Diagnoses Polyneuropathy, unspecified (02/25/19) Spinal stenosis, lumbar region without neurogenic claudication (02/25/19) Difficulty in walking, not elsewhere classified (02/25/19) Other abnormalities of gait and mobility (02/25/19) Weakness (02/25/19) Physical Therapy Treatment Note PT-OP-A Visit Information Start: 02/02/19 17:43 Freq: Status: Active Protocol: Document 02/25/19 13:03 [facility] (Rec: 02/25/19 13:48 [facility] [id number]) Out-Patient Physical Therapy Visit Information Visit Information Visit Type Treatment Note Visit Start Time 13:00 Visit Stop Time 13:50 Total Visit Minutes 50 Visit Number 6 Number of STEWARD/STEWARDESS SECOND CLASS Visits 0 PT-OP-B Current Condition Start: 02/02/19 17:43 Freq: Status: Active Protocol: Document 02/03/19 11:22 [facility] (Rec: 02/03/19 12:13 [facility] [id number]) Current Condition History of Current Condition Onset Date >30 year back pain Current Complaints back pain & dec balance History of Current Condition Pt reports he wants to walk around without falling. Pt reports he has 2-3 per month and typically gets momentum fwd and cannot control that so falls fwd. No difference based on terrain. Pt reports history of back pain for 30 years with 2 fusion surgies and a laminectomy the 3rd surgery. Pt has a pain stimulator in his back which helped at first but as he got used it, its been less effective. Pt reprots it was done about 6 years ago. Pt reports he goes 1x.week to the [facility], he gets in the pool. Pt reports PT has been helpful in the past. Pt reports balance has been getting worse of the past year or 2 especially recently. Prior Treatments and Tests multiple bouts of PT, mult shots, mult MRIs Treatment Goals Patient/Caregiver Goals Dec falls, Be able to walk further distances (to car with ease, down driveway), get in and out of chairs easier, get in and out of bed and roll easier PT-OP-C Subjective Start: 02/02/19 17:43 Freq: Status: Active Protocol: Document 02/25/19 13:03 [facility] (Rec: 02/25/19 13:48 [facility] [id number]) OP-PT Subjective Patient Comments Patient Comments Pt reports no falls since last session but some near fall. Back cont to aggrevate PT-OP-D Balance Start: 02/02/19 17:43 Freq: Status: Active Protocol: Document 02/03/19 11:22 [facility] (Rec: 02/03/19 12:13 [facility] [id number]) Balance Tests De La Rosa Balance Test De La Rosa Balance Test Score 26 De La Rosa Impairment Rating 40 to 59% Impaired (Score 23- 33) PT-OP-F Manual Assessment Start: 02/02/19 17:43 Freq: Status: Active Protocol: Document 02/03/19 11:22 [facility] (Rec: 02/03/19 12:13 [facility] [id number]) Manual Assessments Soft Tissue Assessment Soft Tissue Mobility Assessment significant scar tissue tightness, ES B & QL B tightness PT-OP-G Mobility & Gait Start: 02/02/19 17:43 Freq: Status: Active Protocol: Document 02/03/19 11:22 [facility] (Rec: 02/03/19 12:13 [facility] [id number]) OP Gait Assessment Comments Gait Comments Pt amb with SPC with B lat leaning & fwd leaning. Dec overall push off PT-OP-M Strength Start: 02/02/19 17:43 Freq: Status: Active Protocol: Document 02/03/19 11:22 [facility] (Rec: 02/03/19 12:13 [facility] [id number]) Hip Strength Hip Manual Muscle Testing Left Flexion (L2) 4- Good- Extension (S1) 2+ Poor+ Abduction 3+ Fair+ External Rotation 3+ Fair+ Internal Rotation 3+ Fair+ Right Flexion (L2) 4 Good Extension (S1) 3 Fair Abduction 3+ Fair+ External Rotation 4- Good- Internal Rotation 4- Good- Knee Strength Knee Manual Muscle Testing Left Flexion (S2) 4 Good Extension (L3) 4+ Good+ Right Flexion (S2) 4 Good Extension (L3) 4 Good Ankle/Foot Strength Ankle and Foot Manual Muscle Testing Left Dorsiflexion (L4) 5 Normal Plantarflexion (S1) 5 Normal Right Dorsiflexion (L4) 4+ Good+ Plantarflexion (S1) 4+ Good+ Comments seated PF testing PT-OP-Q Treatments Start: 02/02/19 17:43 Freq: Status: Active Protocol: Document 02/25/19 13:03 [facility] (Rec: 02/25/19 13:48 [facility] [id number]) Gym Equipment Shuttle Recovery Bilateral Squats Resistance 87# Shuttle Recovery Platform Stable Reps/Time 2x20 Shuttle Balance blue Comments Fwd: WBOS EC, NBOS, staggered stance B side: WBOS & NBOS Therapeutic Exercises Standing Exercises stretch Standing Exercise Name feng pose Side bilateral Reps/Minutes 2(w/5 sec holds) Neuro Re-Education Treatment Balance Activities hurdles Details about 1 ft apart Reps/Duration 6 reps sidestep Reps/Duration 20ft Comments focus on core stability w/o rail use PT-OP-R Modalities Start: 02/02/19 17:43 Freq: Status: Active Protocol: Document 02/25/19 13:03 [facility] (Rec: 02/25/19 13:48 [facility] [id number]) Hot Pack/Cold Pack Treatment Cold Pack Location lumbar Patient Position Sidelying Treatment Duration (minutes) 10 Patient Tolerance Good PT-OP-T Assessment and Plan Start: 02/02/19 17:43 Freq: Status: Active Protocol: Document 02/25/19 13:03 [facility] (Rec: 02/25/19 13:48 [facility] [id number]) Physical Therapy Assessment Goals gait Dispensing Operator Goal (LTG) Pt will be able to walk for 10 min without requiring a rest break. LTG Duration 05/06/19 mobility Short Term Goal (STG) Pt will be indep with log roll technique and report less difficulty with getting in and out of bed and rolling in bed . STG Duration 03/18/19 Usp Goal (LTG) Pt will be able to get in and out of a chair without use of UE LTG Duration 05/06/19 strength Short Term Goal (STG) Pt will be indep with HEP and will be going to gym 2-3x/week . STG Duration 03/18/19 Dispensing Operator Goal (LTG) Pt will improve LE strength to at least 4+/5 in order to allow pt to return to typical activities and ADLs with greater ease. LTG Duration 05/06/19 fall risk Short Term Goal (STG) Pt will improve DE LA ROSA score to 35/56 to show dec fall risk with AD. STG Duration 03/18/19 Dispensing Operator Goal (LTG) Pt will improve DE LA ROSA score to 50/56 in order to show pt to be less liekly to fall in the community. LTG Duration 05/06/19 Assessment Summary Assessment Pt improved ability to balance today. He was challenged by hurdles. Physical Therapy Plan Frequency and Duration Frequency of Treatment 2x/Week Duration of Treatment 3 months Plan of Care Start Date 02/03/19 Plan of Care End Date 05/06/18 Next Visit Focus/Plan Next Note Type Treatment Note Next Visit Plan continue to work on balance activities with challenge in NBOS, core stabilization, hip stabilization strength
--- NOTE | 2019-03-01 15:58 | PT.OTN ---
Current Diagnoses Polyneuropathy, unspecified (03/01/19) Spinal stenosis, lumbar region without neurogenic claudication (03/01/19) Difficulty in walking, not elsewhere classified (03/01/19) Other abnormalities of gait and mobility (03/01/19) Weakness (03/01/19) Physical Therapy Treatment Note PT-OP-A Visit Information Start: 02/02/19 17:43 Freq: Status: Active Protocol: Document 03/01/19 10:15 ALFREDITO (Rec: 03/01/19 15:58 LJ [id number]) Out-Patient Physical Therapy Visit Information Visit Information Visit Type Aquatic Treatment Note Visit Start Time 10:15 Visit Stop Time 11:00 Total Visit Minutes 45 Visit Number 7 Number of SYSTEMS NAVIGATOR Visits 1 PT-OP-B Current Condition Start: 02/02/19 17:43 Freq: Status: Active Protocol: Document 02/03/19 11:22 [facility] (Rec: 02/03/19 12:13 [facility] [id number]) Current Condition History of Current Condition Onset Date >30 year back pain Current Complaints back pain & dec balance History of Current Condition Pt reports he wants to walk around without falling. Pt reports he has 2-3 per month and typically gets momentum fwd and cannot control that so falls fwd. No difference based on terrain. Pt reports history of back pain for 30 years with 2 fusion surgies and a laminectomy the 3rd surgery. Pt has a pain stimulator in his back which helped at first but as he got used it, its been less effective. Pt reprots it was done about 6 years ago. Pt reports he goes 1x.week to the [facility], he gets in the pool. Pt reports PT has been helpful in the past. Pt reports balance has been getting worse of the past year or 2 especially recently. Prior Treatments and Tests multiple bouts of PT, mult shots, mult MRIs Treatment Goals Patient/Caregiver Goals Dec falls, Be able to walk further distances (to car with ease, down driveway), get in and out of chairs easier, get in and out of bed and roll easier PT-OP-C Subjective Start: 02/02/19 17:43 Freq: Status: Active Protocol: Document 03/01/19 10:15 LJ (Rec: 03/01/19 15:58 LJ [id number]) OP-PT Subjective Patient Comments Patient Comments Pt reports he fell a while ago in his driveway when he was trying to deepak after his dog when it got away from him. States he always falls forward. Concerned ablut his balance and moriah strength. PT-OP-D Balance Start: 02/02/19 17:43 Freq: Status: Active Protocol: Document 02/03/19 11:22 [facility] (Rec: 02/03/19 12:13 [facility] [id number]) Balance Tests De La Rosa Balance Test De La Rosa Balance Test Score 26 De La Rosa Impairment Rating 40 to 59% Impaired (Score 23- 33) PT-OP-F Manual Assessment Start: 02/02/19 17:43 Freq: Status: Active Protocol: Document 02/03/19 11:22 [facility] (Rec: 02/03/19 12:13 [facility] [id number]) Manual Assessments Soft Tissue Assessment Soft Tissue Mobility Assessment significant scar tissue tightness, ES B & QL B tightness PT-OP-G Mobility & Gait Start: 02/02/19 17:43 Freq: Status: Active Protocol: Document 02/03/19 11:22 [facility] (Rec: 02/03/19 12:13 [facility] [id number]) OP Gait Assessment Comments Gait Comments Pt amb with SPC with B lat leaning & fwd leaning. Dec overall push off PT-OP-M Strength Start: 02/02/19 17:43 Freq: Status: Active Protocol: Document 02/03/19 11:22 [facility] (Rec: 02/03/19 12:13 [facility] [id number]) Hip Strength Hip Manual Muscle Testing Left Flexion (L2) 4- Good- Extension (S1) 2+ Poor+ Abduction 3+ Fair+ External Rotation 3+ Fair+ Internal Rotation 3+ Fair+ Right Flexion (L2) 4 Good Extension (S1) 3 Fair Abduction 3+ Fair+ External Rotation 4- Good- Internal Rotation 4- Good- Knee Strength Knee Manual Muscle Testing Left Flexion (S2) 4 Good Extension (L3) 4+ Good+ Right Flexion (S2) 4 Good Extension (L3) 4 Good Ankle/Foot Strength Ankle and Foot Manual Muscle Testing Left Dorsiflexion (L4) 5 Normal Plantarflexion (S1) 5 Normal Right Dorsiflexion (L4) 4+ Good+ Plantarflexion (S1) 4+ Good+ Comments seated PF testing PT-OP-Q Treatments Start: 02/02/19 17:43 Freq: Status: Active Protocol: Document 02/25/19 13:03 [facility] (Rec: 02/25/19 13:48 [facility] [id number]) Gym Equipment Shuttle Recovery Bilateral Squats Resistance 87# Shuttle Recovery Platform Stable Reps/Time 2x20 Shuttle Balance blue Comments Fwd: WBOS EC, NBOS, staggered stance B side: WBOS & NBOS Therapeutic Exercises Standing Exercises stretch Standing Exercise Name feng pose Side bilateral Reps/Minutes 2(w/5 sec holds) Neuro Re-Education Treatment Balance Activities hurdles Details about 1 ft apart Reps/Duration 6 reps sidestep Reps/Duration 20ft Comments focus on core stability w/o rail use PT-OP-R Modalities Start: 02/02/19 17:43 Freq: Status: Active Protocol: Document 02/25/19 13:03 [facility] (Rec: 02/25/19 13:48 [facility] [id number]) Hot Pack/Cold Pack Treatment Cold Pack Location lumbar Patient Position Sidelying Treatment Duration (minutes) 10 Patient Tolerance Good PT-OP-S Aquatic Treatment Start: 02/26/19 16:08 Freq: Status: Active Protocol: Document 03/01/19 10:15 LJ (Rec: 03/01/19 15:58 LJ [id number]) Aquatics Treatment Pool Entry/Exit Pool Entry/Exit Method Stairs Assistance Standby Assistance,Verbal Cues Water Walking directional changes Water Level Chest Level Level of Assistance Standby Assistance,Contact Guard Assistance,Minimal Assistance,Verbal Cues Marching Water Level Chest Level Level of Assistance Standby Assistance,Contact Guard Assistance,Minimal Assistance,Verbal Cues Backwards Water Level Chest Level Level of Assistance Standby Assistance,Verbal Cues Comments shuffling, pushingrather than stepping Sideways Water Level Chest Level Level of Assistance Standby Assistance,Contact Guard Assistance,Verbal Cues Forwards Water Level Chest Level Level of Assistance Standby Assistance,Contact Guard Assistance,Verbal Cues Lower Extremity Exercises squats on box Details muscle sequence activation- [id number] Water Level Chest Level Reps/Duration 20 Comments hh on wall; good posture toe raises Body Position Standing Water Level Chest Level Reps/Duration x15 Spinal Exercises spinal stabilization with perturbances Body Position Standing Water Level Chest Level Reps/Duration 3 min Comments moving water around pt Balance weight shifting forward and backward; side to side Body Position Standing Water Level Chest Level Reps/Duration 4 min Comments forward-backward with difficulty boxes Details step up and over Water Level Chest Level Equipment 8 boxes Reps/Duration 12 min Comments pt with much difficulty in waist deep SLS bilaterally Reps/Duration 6x30 sec attempted Comments min hh on wall; L weaker PT-OP-T Assessment and Plan Start: 02/02/19 17:43 Freq: Status: Active Protocol: Document 03/01/19 10:15 [facility]FR[facility] (Rec: 03/01/19 15:58 [facility] [id number]) Physical Therapy Assessment Rehab Potential Rehabilitation Potential Good Evaluation Complexity Number of Personal Factors/Comorbidities 3 or More Number of Body Systems Impaired 4 or More Clinical Presentation at Evaluation Evolving Impairments Impairments Activity Tolerance,Balance, Functional Activities, Functional Mobility,Gait,Pain, Posture,ROM,Soft Tissue Mobility,Strength,Transfers Goals gait Fly Setter Goal (LTG) Pt will be able to walk for 10 min without requiring a rest break. LTG Duration 05/06/19 mobility Short Term Goal (STG) Pt will be indep with log roll technique and report less difficulty with getting in and out of bed and rolling in bed . STG Duration 03/18/19 Care Home Goal (LTG) Pt will be able to get in and out of a chair without use of UE LTG Duration 05/06/19 strength Short Term Goal (STG) Pt will be indep with HEP and will be going to gym 2-3x/week . STG Duration 03/18/19 Care Home Goal (LTG) Pt will improve LE strength to at least 4+/5 in order to allow pt to return to typical activities and ADLs with greater ease. LTG Duration 05/06/19 fall risk Short Term Goal (STG) Pt will improve DE LA ROSA score to 35/56 to show dec fall risk with AD. STG Duration 03/18/19 Care Home Goal (LTG) Pt will improve DE LA ROSA score to 50/56 in order to show pt to be less liekly to fall in the community. LTG Duration 05/06/19 Assessment Summary Assessment Pt had difficulty with balance activities and marching exercises. Very unstable with stepping up and stabilizing on boxes. Manual assist was necessary often to help pt stand upright when falling over. Pt with weak core and poor balance lacking recrip. gait coordination in all walking activities. Pt does not appear to know what to do with his body to prevent tipping over when he begins to lose balance. Physical Therapy Plan Frequency and Duration Frequency of Treatment 2x/Week Duration of Treatment 3 months Plan of Care Start Date 02/03/19 Plan of Care End Date 05/06/18 Next Visit Focus/Plan Next Note Type Treatment Note Next Visit Plan Continue to progress gait and balance and activities in shallow water. Initiate core stabilization exercises braced at wall. Begin LE exercises to address hip, knee and ankle strength.
--- NOTE | 2019-03-03 14:50 | PT.OTN ---
Current Diagnoses Polyneuropathy, unspecified (03/03/19) Spinal stenosis, lumbar region without neurogenic claudication (03/03/19) Difficulty in walking, not elsewhere classified (03/03/19) Other abnormalities of gait and mobility (03/03/19) Weakness (03/03/19) Physical Therapy Treatment Note PT-OP-A Visit Information Start: 02/02/19 17:43 Freq: Status: Active Protocol: Document 03/03/19 10:32 MT (Rec: 03/03/19 11:31 MT [id number]) Out-Patient Physical Therapy Visit Information Visit Information Visit Type Treatment Note Visit Start Time 10:32 Visit Stop Time 11:25 Total Visit Minutes 53 Visit Number 8 Number of SPD MANAGER Visits 0 PT-OP-B Current Condition Start: 02/02/19 17:43 Freq: Status: Active Protocol: Document 02/03/19 11:22 [facility] (Rec: 02/03/19 12:13 [facility] [id number]) Current Condition History of Current Condition Onset Date >30 year back pain Current Complaints back pain & dec balance History of Current Condition Pt reports he wants to walk around without falling. Pt reports he has 2-3 per month and typically gets momentum fwd and cannot control that so falls fwd. No difference based on terrain. Pt reports history of back pain for 30 years with 2 fusion surgies and a laminectomy the 3rd surgery. Pt has a pain stimulator in his back which helped at first but as he got used it, its been less effective. Pt reprots it was done about 6 years ago. Pt reports he goes 1x.week to the [facility], he gets in the pool. Pt reports PT has been helpful in the past. Pt reports balance has been getting worse of the past year or 2 especially recently. Prior Treatments and Tests multiple bouts of PT, mult shots, mult MRIs Treatment Goals Patient/Caregiver Goals Dec falls, Be able to walk further distances (to car with ease, down driveway), get in and out of chairs easier, get in and out of bed and roll easier PT-OP-C Subjective Start: 02/02/19 17:43 Freq: Status: Active Protocol: Document 03/03/19 10:32 MT (Rec: 03/03/19 11:31 MT [id number]) OP-PT Subjective Patient Comments Patient Comments Patient reports that he has felt more dizzy today. He reports that he has not been sleeping well lately and feels exhausted. He did pool therapy on Friday. and was able to get to the gym 3 times this week. He reports that his back does not get aggravated after his appts with PT. he said that he gets back pain instantly when he stands up. He reported that some pain today and pointed to his sides and around to his back on both sides. PT-OP-D Balance Start: 02/02/19 17:43 Freq: Status: Active Protocol: Document 02/03/19 11:22 [facility] (Rec: 02/03/19 12:13 [facility] [id number]) Balance Tests De La Rosa Balance Test De La Rosa Balance Test Score 26 De La Rosa Impairment Rating 40 to 59% Impaired (Score 23- 33) PT-OP-F Manual Assessment Start: 02/02/19 17:43 Freq: Status: Active Protocol: Document 02/03/19 11:22 [facility] (Rec: 02/03/19 12:13 [facility] [id number]) Manual Assessments Soft Tissue Assessment Soft Tissue Mobility Assessment significant scar tissue tightness, ES B & QL B tightness PT-OP-G Mobility & Gait Start: 02/02/19 17:43 Freq: Status: Active Protocol: Document 02/03/19 11:22 [facility] (Rec: 02/03/19 12:13 [facility] [id number]) OP Gait Assessment Comments Gait Comments Pt amb with SPC with B lat leaning & fwd leaning. Dec overall push off PT-OP-M Strength Start: 02/02/19 17:43 Freq: Status: Active Protocol: Document 02/03/19 11:22 [facility] (Rec: 02/03/19 12:13 [facility] [id number]) Hip Strength Hip Manual Muscle Testing Left Flexion (L2) 4- Good- Extension (S1) 2+ Poor+ Abduction 3+ Fair+ External Rotation 3+ Fair+ Internal Rotation 3+ Fair+ Right Flexion (L2) 4 Good Extension (S1) 3 Fair Abduction 3+ Fair+ External Rotation 4- Good- Internal Rotation 4- Good- Knee Strength Knee Manual Muscle Testing Left Flexion (S2) 4 Good Extension (L3) 4+ Good+ Right Flexion (S2) 4 Good Extension (L3) 4 Good Ankle/Foot Strength Ankle and Foot Manual Muscle Testing Left Dorsiflexion (L4) 5 Normal Plantarflexion (S1) 5 Normal Right Dorsiflexion (L4) 4+ Good+ Plantarflexion (S1) 4+ Good+ Comments seated PF testing PT-OP-Q Treatments Start: 02/02/19 17:43 Freq: Status: Active Protocol: Document 03/03/19 10:32 MT (Rec: 03/03/19 11:31 MT [id number]) Cardio Equipment Recumbent Elliptical (Biodex) Duration (Minutes) 6 Resistance 8 Gym Equipment Shuttle Recovery Bilateral Squats Resistance 87# Shuttle Recovery Platform Stable Reps/Time 2x20 Shuttle Balance blue Details fwd/back WBOS Comments Pt struggled with the balance activties today and lost his balance and required assistance from PT to stay upright, so did not continue with activity Therapeutic Exercises Supine Exercises heel slides Side bilateral Reps/Minutes 10 Comments cueing for tightening core LTR Supine Exercise Name LE and trunk roll side to side Side bilateral Reps/Minutes 10 Comments cueing for segmental activation of core bridge Side bilateral Reps/Minutes 15 Manual Therapy Treatment Soft Tissue Mobilization Scar tissue Body Location scar tissue and L QL Mobilization Type Myofascial Release, Oscillations,Rolling,Strumming ,Sustained Pressure Intensity/Depth Moderate Body Position Sidelying Neuro Re-Education Treatment Balance Activities hurdles Details step to, step through, fwds and sideways Equipment hurdles about 1 ft apart in // bars Reps/Duration 6 reps PT-OP-R Modalities Start: 02/02/19 17:43 Freq: Status: Active Protocol: Document 03/03/19 10:32 MT (Rec: 03/03/19 11:31 MT [id number]) Hot Pack/Cold Pack Treatment Cold Pack Location lumbar Patient Position Sidelying Treatment Duration (minutes) 10 Patient Tolerance Good PT-OP-S Aquatic Treatment Start: 02/26/19 16:08 Freq: Status: Active Protocol: Document 03/01/19 10:15 LJ (Rec: 03/01/19 15:58 LJ [id number]) Aquatics Treatment Pool Entry/Exit Pool Entry/Exit Method Stairs Assistance Standby Assistance,Verbal Cues Water Walking directional changes Water Level Chest Level Level of Assistance Standby Assistance,Contact Guard Assistance,Minimal Assistance,Verbal Cues Marching Water Level Chest Level Level of Assistance Standby Assistance,Contact Guard Assistance,Minimal Assistance,Verbal Cues Backwards Water Level Chest Level Level of Assistance Standby Assistance,Verbal Cues Comments shuffling, pushingrather than stepping Sideways Water Level Chest Level Level of Assistance Standby Assistance,Contact Guard Assistance,Verbal Cues Forwards Water Level Chest Level Level of Assistance Standby Assistance,Contact Guard Assistance,Verbal Cues Lower Extremity Exercises squats on box Details muscle sequence activation- [id number]-farv-[id number] Water Level Chest Level Reps/Duration 20 Comments hh on wall; good posture toe raises Body Position Standing Water Level Chest Level Reps/Duration x15 Spinal Exercises spinal stabilization with perturbances Body Position Standing Water Level Chest Level Reps/Duration 3 min Comments moving water around pt Balance weight shifting forward and backward; side to side Body Position Standing Water Level Chest Level Reps/Duration 4 min Comments forward-backward with difficulty boxes Details step up and over Water Level Chest Level Equipment 8 boxes Reps/Duration 12 min Comments pt with much difficulty in waist deep SLS bilaterally Reps/Duration 6x30 sec attempted Comments min hh on wall; L weaker PT-OP-T Assessment and Plan Start: 02/02/19 17:43 Freq: Status: Active Protocol: Document 03/03/19 10:32 MT (Rec: 03/03/19 11:31 MT [id number]) Physical Therapy Assessment Goals gait Account Financial Manager Goal (LTG) Pt will be able to walk for 10 min without requiring a rest break. LTG Duration 05/06/19 mobility Short Term Goal (STG) Pt will be indep with log roll technique and report less difficulty with getting in and out of bed and rolling in bed . STG Duration 03/18/19 [facility] Goal (LTG) Pt will be able to get in and out of a chair without use of UE LTG Duration 05/06/19 strength Short Term Goal (STG) Pt will be indep with HEP and will be going to gym 2-3x/week . STG Duration 03/18/19 [facility] Goal (LTG) Pt will improve LE strength to at least 4+/5 in order to allow pt to return to typical activities and ADLs with greater ease. LTG Duration 05/06/19 fall risk Short Term Goal (STG) Pt will improve DE LA ROSA score to 35/56 to show dec fall risk with AD. STG Duration 03/18/19 Account Financial Manager Goal (LTG) Pt will improve DE LA ROSA score to 50/56 in order to show pt to be less liekly to fall in the community. LTG Duration 05/06/19 Assessment Summary Assessment Pt was challeneged more than he previously was with balance on unstable usrfaces and required assistance from PT to maintain his balance. He preformed better on the kaur exercises and reported that it was not as fatiguing to him . Pt beagn reporting pain around his sides and into his back, but was unable to pinpoint location for PT for STM. Physical Therapy Plan Frequency and Duration Frequency of Treatment 2x/Week Duration of Treatment 3 months Plan of Care Start Date 02/03/19 Plan of Care End Date 05/06/18 Next Visit Focus/Plan Next Note Type Treatment Note Next Visit Plan continue to work on balance activities with challenge in NBOS, core stabilization, hip stabilization strength
--- NOTE | 2019-03-08 15:12 | PT.OTN ---
Current Diagnoses Polyneuropathy, unspecified (03/08/19) Spinal stenosis, lumbar region without neurogenic claudication (03/08/19) Difficulty in walking, not elsewhere classified (03/08/19) Other abnormalities of gait and mobility (03/08/19) Weakness (03/08/19) Physical Therapy Treatment Note PT-OP-A Visit Information Start: 02/02/19 17:43 Freq: Status: Active Protocol: Document 03/08/19 10:15 [facility] (Rec: 03/08/19 15:12 LJ [id number]) Out-Patient Physical Therapy Visit Information Visit Information Visit Type Aquatic Treatment Note Visit Start Time 10:15 Visit Stop Time 11:00 Total Visit Minutes 45 Visit Number 3 Number of WEIGHTS AND MEASURES INSPECTOR Visits 1 PT-OP-B Current Condition Start: 02/02/19 17:43 Freq: Status: Active Protocol: Document 02/03/19 11:22 [facility] (Rec: 02/03/19 12:13 [facility] [id number]) Current Condition History of Current Condition Onset Date >30 year back pain Current Complaints back pain & dec balance History of Current Condition Pt reports he wants to walk around without falling. Pt reports he has 2-3 per month and typically gets momentum fwd and cannot control that so falls fwd. No difference based on terrain. Pt reports history of back pain for 30 years with 2 fusion surgies and a laminectomy the 3rd surgery. Pt has a pain stimulator in his back which helped at first but as he got used it, its been less effective. Pt reprots it was done about 6 years ago. Pt reports he goes 1x.week to the [facility], he gets in the pool. Pt reports PT has been helpful in the past. Pt reports balance has been getting worse of the past year or 2 especially recently. Prior Treatments and Tests multiple bouts of PT, mult shots, mult MRIs Treatment Goals Patient/Caregiver Goals Dec falls, Be able to walk further distances (to car with ease, down driveway), get in and out of chairs easier, get in and out of bed and roll easier PT-OP-C Subjective Start: 02/02/19 17:43 Freq: Status: Active Protocol: Document 03/08/19 10:15 [facility] (Rec: 03/08/19 15:12 [facility] [id number]) OP-PT Subjective Patient Comments Patient Comments Pt reports he worked hard this weekend cleaning the house which tired him out. He is scheduled to have a brain MRI soon but was not sure of the exact dateHe is seeing a neurologist for his bouts of dizziness. PT-OP-D Balance Start: 02/02/19 17:43 Freq: Status: Active Protocol: Document 02/03/19 11:22 [facility] (Rec: 02/03/19 12:13 [facility] [id number]) Balance Tests De La Rosa Balance Test De La Rosa Balance Test Score 26 De La Rosa Impairment Rating 40 to 59% Impaired (Score 23- 33) PT-OP-F Manual Assessment Start: 02/02/19 17:43 Freq: Status: Active Protocol: Document 02/03/19 11:22 [facility] (Rec: 02/03/19 12:13 [facility] [id number]) Manual Assessments Soft Tissue Assessment Soft Tissue Mobility Assessment significant scar tissue tightness, ES B & QL B tightness PT-OP-G Mobility & Gait Start: 02/02/19 17:43 Freq: Status: Active Protocol: Document 02/03/19 11:22 [facility] (Rec: 02/03/19 12:13 [facility] [id number]) OP Gait Assessment Comments Gait Comments Pt amb with SPC with B lat leaning & fwd leaning. Dec overall push off PT-OP-M Strength Start: 02/02/19 17:43 Freq: Status: Active Protocol: Document 02/03/19 11:22 [facility] (Rec: 02/03/19 12:13 [facility] [id number]) Hip Strength Hip Manual Muscle Testing Left Flexion (L2) 4- Good- Extension (S1) 2+ Poor+ Abduction 3+ Fair+ External Rotation 3+ Fair+ Internal Rotation 3+ Fair+ Right Flexion (L2) 4 Good Extension (S1) 3 Fair Abduction 3+ Fair+ External Rotation 4- Good- Internal Rotation 4- Good- Knee Strength Knee Manual Muscle Testing Left Flexion (S2) 4 Good Extension (L3) 4+ Good+ Right Flexion (S2) 4 Good Extension (L3) 4 Good Ankle/Foot Strength Ankle and Foot Manual Muscle Testing Left Dorsiflexion (L4) 5 Normal Plantarflexion (S1) 5 Normal Right Dorsiflexion (L4) 4+ Good+ Plantarflexion (S1) 4+ Good+ Comments seated PF testing PT-OP-Q Treatments Start: 02/02/19 17:43 Freq: Status: Active Protocol: Document 03/03/19 10:32 [facility] (Rec: 03/03/19 11:31 [facility] [id number]) Cardio Equipment Recumbent Elliptical (Biodex) Duration (Minutes) 6 Resistance 8 Gym Equipment Shuttle Recovery Bilateral Squats Resistance 87# Shuttle Recovery Platform Stable Reps/Time 2x20 Shuttle Balance blue Details fwd/back WBOS Comments Pt struggled with the balance activties today and lost his balance and required assistance from PT to stay upright, so did not continue with activity Therapeutic Exercises Supine Exercises heel slides Side bilateral Reps/Minutes 10 Comments cueing for tightening core LTR Supine Exercise Name LE and trunk roll side to side Side bilateral Reps/Minutes 10 Comments cueing for segmental activation of core bridge Side bilateral Reps/Minutes 15 Manual Therapy Treatment Soft Tissue Mobilization Scar tissue Body Location scar tissue and L QL Mobilization Type Myofascial Release, Oscillations,Rolling,Strumming ,Sustained Pressure Intensity/Depth Moderate Body Position Sidelying Neuro Re-Education Treatment Balance Activities hurdles Details step to, step through, fwds and sideways Equipment hurdles about 1 ft apart in // bars Reps/Duration 6 reps PT-OP-R Modalities Start: 02/02/19 17:43 Freq: Status: Active Protocol: Document 03/03/19 10:32 [facility] (Rec: 03/03/19 11:31 [facility] [id number]) Hot Pack/Cold Pack Treatment Cold Pack Location lumbar Patient Position Sidelying Treatment Duration (minutes) 10 Patient Tolerance Good PT-OP-S Aquatic Treatment Start: 02/26/19 16:08 Freq: Status: Active Protocol: Document 03/08/19 10:15 [facility] (Rec: 03/08/19 15:12 [facility] [id number]) Aquatics Treatment Pool Entry/Exit Pool Entry/Exit Method Stairs Assistance Standby Assistance Water Walking directional changes Water Level Chest Level Level of Assistance Standby Assistance,Contact Guard Assistance,Minimal Assistance,Verbal Cues Marching Water Level Chest Level Level of Assistance Standby Assistance,Contact Guard Assistance,Minimal Assistance,Verbal Cues Backwards Water Level Chest Level Level of Assistance Standby Assistance,Minimal Assistance,Moderate Assistance ,Verbal Cues Comments stepping corectly this time Sideways Water Level Chest Level Level of Assistance Standby Assistance Forwards Water Level Chest Level Level of Assistance Standby Assistance,Contact Guard Assistance,Verbal Cues Lower Extremity Exercises step ups on boxes Details forward and sideways Water Level Waist Level Reps/Duration 15 min Comments many LOBs hip ab/ad Body Position Standing Water Level Chest Level Reps/Duration 2x10 Comments hh on wall hip flex/ext Body Position Standing Water Level Chest Level Reps/Duration 2x10 Comments hh on wall squats on box Details muscle sequence activation- [id number] Water Level Chest Level Reps/Duration 22 Comments hh on wall; good posture toe raises Body Position Standing Water Level Chest Level Reps/Duration x12 Comments hh on wall Lower Extremity Stretches gastroc Details at wall Body Position Standing Water Level Chest Level Reps/Duration 2x45 hip flexors Details at wall Body Position Standing Water Level Chest Level Reps/Duration 2x45 Comments manual cueing HS, Quad Details at wall Body Position Standing Water Level Chest Level Equipment Small Noodle Reps/Duration 2x45 sec each Upper Extremity Exercises flex/ext, ab,ad Body Position Standing Water Level Chest Level Reps/Duration 10 ea Balance SLS bilaterally Reps/Duration 6x30 sec attempted Comments min hh on wall; L weaker PT-OP-T Assessment and Plan Start: 02/02/19 17:43 Freq: Status: Active Protocol: Document 03/08/19 10:15 [facility] (Rec: 03/08/19 15:12 [facility] [id number]) Physical Therapy Assessment Rehab Potential Rehabilitation Potential Good Evaluation Complexity Number of Personal Factors/Comorbidities 3 or More Number of Body Systems Impaired 4 or More Clinical Presentation at Evaluation Evolving Impairments Impairments Activity Tolerance,Balance, Functional Activities, Functional Mobility,Gait,Pain, Posture,ROM,Soft Tissue Mobility,Strength,Transfers Goals gait Building Construction Teacher Goal (LTG) Pt will be able to walk for 10 min without requiring a rest break. LTG Duration 05/06/19 mobility Short Term Goal (STG) Pt will be indep with log roll technique and report less difficulty with getting in and out of bed and rolling in bed . STG Duration 03/18/19 [facility] Goal (LTG) Pt will be able to get in and out of a chair without use of UE LTG Duration 05/06/19 strength Short Term Goal (STG) Pt will be indep with HEP and will be going to gym 2-3x/week . STG Duration 03/18/19 Building Construction Teacher Goal (LTG) Pt will improve LE strength to at least 4+/5 in order to allow pt to return to typical activities and ADLs with greater ease. LTG Duration 05/06/19 fall risk Short Term Goal (STG) Pt will improve DE LA ROSA score to 35/56 to show dec fall risk with AD. STG Duration 03/18/19 Building Construction Teacher Goal (LTG) Pt will improve DE LA ROSA score to 50/56 in order to show pt to be less liekly to fall in the community. LTG Duration 05/06/19 Assessment Summary Assessment Pt had difficulty with all balance and walking activities . HH on wall for most static LE exercises. Pt lacking ability to stabilize using core and glute muscles. Had good squat form with some cueing but unable to perform aquat w/o hh on wall. Physical Therapy Plan Frequency and Duration Frequency of Treatment 2x/Week Duration of Treatment 3 months Plan of Care Start Date 02/03/19 Plan of Care End Date 05/06/18 Next Visit Focus/Plan Next Visit Plan continue to work on balance activities with challenge in NBOS, core stabilization, hip stabilization strength
--- NOTE | 2019-03-10 17:46 | PT.OTN ---
Current Diagnoses Polyneuropathy, unspecified (03/10/19) Spinal stenosis, lumbar region without neurogenic claudication (03/10/19) Difficulty in walking, not elsewhere classified (03/10/19) Other abnormalities of gait and mobility (03/10/19) Weakness (03/10/19) Physical Therapy Treatment Note PT-OP-A Visit Information Start: 02/02/19 17:43 Freq: Status: Active Protocol: Document 03/10/19 10:34 [facility] (Rec: 03/10/19 11:29 MT [id number]) Out-Patient Physical Therapy Visit Information Visit Information Visit Type Treatment Note Visit Start Time 10:31 Visit Stop Time 11:25 Total Visit Minutes 54 Visit Number 10 Number of OPTICAL COATING TECHNICIAN Visits 0 PT-OP-B Current Condition Start: 02/02/19 17:43 Freq: Status: Active Protocol: Document 02/03/19 11:22 [facility] (Rec: 02/03/19 12:13 [facility] [id number]) Current Condition History of Current Condition Onset Date >30 year back pain Current Complaints back pain & dec balance History of Current Condition Pt reports he wants to walk around without falling. Pt reports he has 2-3 per month and typically gets momentum fwd and cannot control that so falls fwd. No difference based on terrain. Pt reports history of back pain for 30 years with 2 fusion surgies and a laminectomy the 3rd surgery. Pt has a pain stimulator in his back which helped at first but as he got used it, its been less effective. Pt reprots it was done about 6 years ago. Pt reports he goes 1x.week to the [facility], he gets in the pool. Pt reports PT has been helpful in the past. Pt reports balance has been getting worse of the past year or 2 especially recently. Prior Treatments and Tests multiple bouts of PT, mult shots, mult MRIs Treatment Goals Patient/Caregiver Goals Dec falls, Be able to walk further distances (to car with ease, down driveway), get in and out of chairs easier, get in and out of bed and roll easier PT-OP-C Subjective Start: 02/02/19 17:43 Freq: Status: Active Protocol: Document 03/10/19 10:34 [facility] (Rec: 03/10/19 11:29 [facility] [id number]) OP-PT Subjective Patient Comments Patient Comments Pt reports that his back has not been feeling good and there is a spot on his R upper back that is bugging him. He reports that his balance is still off He made it to the pool once on Friday and got a very tough workout and was tired the rest of the day. He made it to the gym on Friday. PT-OP-D Balance Start: 02/02/19 17:43 Freq: Status: Active Protocol: Document 02/03/19 11:22 [facility] (Rec: 02/03/19 12:13 [facility] [id number]) Balance Tests De La Rosa Balance Test De La Rosa Balance Test Score 26 De La Rosa Impairment Rating 40 to 59% Impaired (Score 23- 33) PT-OP-F Manual Assessment Start: 02/02/19 17:43 Freq: Status: Active Protocol: Document 02/03/19 11:22 [facility] (Rec: 02/03/19 12:13 [facility] [id number]) Manual Assessments Soft Tissue Assessment Soft Tissue Mobility Assessment significant scar tissue tightness, ES B & QL B tightness PT-OP-G Mobility & Gait Start: 02/02/19 17:43 Freq: Status: Active Protocol: Document 02/03/19 11:22 [facility] (Rec: 02/03/19 12:13 [facility] [id number]) OP Gait Assessment Comments Gait Comments Pt amb with SPC with B lat leaning & fwd leaning. Dec overall push off PT-OP-M Strength Start: 02/02/19 17:43 Freq: Status: Active Protocol: Document 02/03/19 11:22 [facility] (Rec: 02/03/19 12:13 [facility] [id number]) Hip Strength Hip Manual Muscle Testing Left Flexion (L2) 4- Good- Extension (S1) 2+ Poor+ Abduction 3+ Fair+ External Rotation 3+ Fair+ Internal Rotation 3+ Fair+ Right Flexion (L2) 4 Good Extension (S1) 3 Fair Abduction 3+ Fair+ External Rotation 4- Good- Internal Rotation 4- Good- Knee Strength Knee Manual Muscle Testing Left Flexion (S2) 4 Good Extension (L3) 4+ Good+ Right Flexion (S2) 4 Good Extension (L3) 4 Good Ankle/Foot Strength Ankle and Foot Manual Muscle Testing Left Dorsiflexion (L4) 5 Normal Plantarflexion (S1) 5 Normal Right Dorsiflexion (L4) 4+ Good+ Plantarflexion (S1) 4+ Good+ Comments seated PF testing PT-OP-Q Treatments Start: 02/02/19 17:43 Freq: Status: Active Protocol: Document 03/10/19 10:34 [facility] (Rec: 03/10/19 11:29 MT [id number]) Cardio Equipment Recumbent Elliptical (Biodex) Duration (Minutes) 6 Resistance 9 Gym Equipment Shuttle Recovery Bilateral Squats Resistance 87# Shuttle Recovery Platform Stable Reps/Time 2x20 Therapeutic Ball sitting balance Exercise Details marches and kick outs Body Position Sitting Reps/Duration 15 each leg Comments pt struggled to maintain upright position with simultaneous leg movements. and was highly challenged and fatigued after the exercise. Manual Therapy Treatment Soft Tissue Mobilization Scar tissue Body Location scar tissue and L QL Mobilization Type Myofascial Release, Oscillations,Rolling,Strumming ,Sustained Pressure Intensity/Depth Moderate Body Position Sidelying PT-OP-R Modalities Start: 02/02/19 17:43 Freq: Status: Active Protocol: Document 03/10/19 10:34 [facility] (Rec: 03/10/19 11:29 MT [id number]) Hot Pack/Cold Pack Treatment Cold Pack Location lumbar Patient Position Sidelying Treatment Duration (minutes) 10 Patient Tolerance Good PT-OP-S Aquatic Treatment Start: 02/26/19 16:08 Freq: Status: Active Protocol: Document 03/08/19 10:15 [facility] (Rec: 03/08/19 15:12 [facility] [id number]) Aquatics Treatment Pool Entry/Exit Pool Entry/Exit Method Stairs Assistance Standby Assistance Water Walking directional changes Water Level Chest Level Level of Assistance Standby Assistance,Contact Guard Assistance,Minimal Assistance,Verbal Cues Water Level Chest Level Level of Assistance Standby Assistance,Contact Guard Assistance,Minimal Assistance,Verbal Cues Backwards Water Level Chest Level Level of Assistance Standby Assistance,Minimal Assistance,Moderate Assistance ,Verbal Cues Comments stepping corectly this time Sideways Water Level Chest Level Level of Assistance Standby Assistance Forwards Water Level Chest Level Level of Assistance Standby Assistance,Contact Guard Assistance,Verbal Cues Lower Extremity Exercises step ups on boxes Details forward and sideways Water Level Waist Level Reps/Duration 15 min Comments many LOBs hip ab/ad Body Position Standing Water Level Chest Level Reps/Duration 2x10 Comments hh on wall hip flex/ext Body Position Standing Water Level Chest Level Reps/Duration 2x10 Comments hh on wall squats on box Details muscle sequence activation- [id number] Water Level Chest Level Reps/Duration 22 Comments hh on wall; good posture toe raises Body Position Standing Water Level Chest Level Reps/Duration x12 Comments hh on wall Lower Extremity Stretches gastroc Details at wall Body Position Standing Water Level Chest Level Reps/Duration 2x45 hip flexors Details at wall Body Position Standing Water Level Chest Level Reps/Duration 2x45 Comments manual cueing HS, Quad Details at wall Body Position Standing Water Level Chest Level Equipment Small Noodle Reps/Duration 2x45 sec each Upper Extremity Exercises flex/ext, ab,ad Body Position Standing Water Level Chest Level Reps/Duration 10 ea Balance SLS bilaterally Reps/Duration 6x30 sec attempted Comments min hh on wall; L weaker PT-OP-T Assessment and Plan Start: 02/02/19 17:43 Freq: Status: Active Protocol: Document 03/10/19 10:34 [facility] (Rec: 03/10/19 11:29 MT [id number]) Physical Therapy Assessment Goals gait Pallet Sorter Goal (LTG) Pt will be able to walk for 10 min without requiring a rest break. LTG Duration 05/06/19 mobility Short Term Goal (STG) Pt will be indep with log roll technique and report less difficulty with getting in and out of bed and rolling in bed . STG Duration 03/18/19 [facility] Goal (LTG) Pt will be able to get in and out of a chair without use of UE LTG Duration 05/06/19 strength Short Term Goal (STG) Pt will be indep with HEP and will be going to gym 2-3x/week . STG Duration 03/18/19 [facility] Goal (LTG) Pt will improve LE strength to at least 4+/5 in order to allow pt to return to typical activities and ADLs with greater ease. LTG Duration 05/06/19 fall risk Short Term Goal (STG) Pt will improve DE LA ROSA score to 35/56 to show dec fall risk with AD. STG Duration 03/18/19 [facility] Goal (LTG) Pt will improve DE LA ROSA score to 50/56 in order to show pt to be less liekly to fall in the community. LTG Duration 05/06/19 Assessment Summary Assessment Due to pt's report of continued pain after therapy sessions and during week, performed exercises in seated or supine position. Pt tolerated these exercises well without reports of aggravated back pain. Pt performed seated balance with leg movements on therapy ball, which was very challenging for pt. Standing up after this exercise, his legs were shakey and tired. Pt was advised to monitor how his back feels for a couple days after the session to see if taking out standing exercises reduces aggravation of his back pain. Physical Therapy Plan Frequency and Duration Frequency of Treatment 2x/Week Duration of Treatment 3 months Plan of Care Start Date 02/03/19 Plan of Care End Date 05/06/18 Next Visit Focus/Plan Next Note Type Treatment Note Next Visit Plan continue to work on balance and LE/core strengthening activities that do not aggravate pt's back pain
--- NOTE | 2019-03-15 15:16 | PT.OTN ---
Current Diagnoses Polyneuropathy, unspecified (03/15/19) Spinal stenosis, lumbar region without neurogenic claudication (03/15/19) Difficulty in walking, not elsewhere classified (03/15/19) Other abnormalities of gait and mobility (03/15/19) Weakness (03/15/19) Physical Therapy Treatment Note PT-OP-A Visit Information Start: 02/02/19 17:43 Freq: Status: Active Protocol: Document 03/15/19 10:15 ALFREDITO (Rec: 03/15/19 15:16 LJ [email or web address]) Out-Patient Physical Therapy Visit Information Visit Information Visit Type Aquatic Treatment Note Visit Start Time 10:15 Visit Stop Time 11:00 Total Visit Minutes 45 Visit Number 11 Number of [employer] DIRECTOR OF HOME [employer] SALES Visits 1 PT-OP-B Current Condition Start: 02/02/19 17:43 Freq: Status: Active Protocol: Document 02/03/19 11:22 [facility] (Rec: 02/03/19 12:13 [facility] [id number]) Current Condition History of Current Condition Onset Date >30 year back pain Current Complaints back pain & dec balance History of Current Condition Pt reports he wants to walk around without falling. Pt reports he has 2-3 per month and typically gets momentum fwd and cannot control that so falls fwd. No difference based on terrain. Pt reports history of back pain for 30 years with 2 fusion surgies and a laminectomy the 3rd surgery. Pt has a pain stimulator in his back which helped at first but as he got used it, its been less effective. Pt reprots it was done about 6 years ago. Pt reports he goes 1x.week to the [facility], he gets in the pool. Pt reports PT has been helpful in the past. Pt reports balance has been getting worse of the past year or 2 especially recently. Prior Treatments and Tests multiple bouts of PT, mult shots, mult MRIs Treatment Goals Patient/Caregiver Goals Dec falls, Be able to walk further distances (to car with ease, down driveway), get in and out of chairs easier, get in and out of bed and roll easier PT-OP-C Subjective Start: 02/02/19 17:43 Freq: Status: Active Protocol: Document 03/15/19 10:15 ALFREDIT[facility] (Rec: 03/15/19 15:16 LJ [email or web address]) OP-PT Subjective Patient Comments Patient Comments Pt states his balance is still worrying him. Went to a movie and was bouncing all over the restroom when he went after the movie. PT-OP-D Balance Start: 02/02/19 17:43 Freq: Status: Active Protocol: Document 02/03/19 11:22 [facility] (Rec: 02/03/19 12:13 [facility] [id number]) Balance Tests De La Rosa Balance Test De La Rosa Balance Test Score 26 De La Rosa Impairment Rating 40 to 59% Impaired (Score 23- 33) PT-OP-F Manual Assessment Start: 02/02/19 17:43 Freq: Status: Active Protocol: Document 02/03/19 11:22 [facility] (Rec: 02/03/19 12:13 [facility] [id number]) Manual Assessments Soft Tissue Assessment Soft Tissue Mobility Assessment significant scar tissue tightness, ES B & QL B tightness PT-OP-G Mobility & Gait Start: 02/02/19 17:43 Freq: Status: Active Protocol: Document 02/03/19 11:22 [facility] (Rec: 02/03/19 12:13 [facility] [id number]) OP Gait Assessment Comments Gait Comments Pt amb with SPC with B lat leaning & fwd leaning. Dec overall push off PT-OP-M Strength Start: 02/02/19 17:43 Freq: Status: Active Protocol: Document 02/03/19 11:22 [facility] (Rec: 02/03/19 12:13 [facility] [id number]) Hip Strength Hip Manual Muscle Testing Left Flexion (L2) 4- Good- Extension (S1) 2+ Poor+ Abduction 3+ Fair+ External Rotation 3+ Fair+ Internal Rotation 3+ Fair+ Right Flexion (L2) 4 Good Extension (S1) 3 Fair Abduction 3+ Fair+ External Rotation 4- Good- Internal Rotation 4- Good- Knee Strength Knee Manual Muscle Testing Left Flexion (S2) 4 Good Extension (L3) 4+ Good+ Right Flexion (S2) 4 Good Extension (L3) 4 Good Ankle/Foot Strength Ankle and Foot Manual Muscle Testing Left Dorsiflexion (L4) 5 Normal Plantarflexion (S1) 5 Normal Right Dorsiflexion (L4) 4+ Good+ Plantarflexion (S1) 4+ Good+ Comments seated PF testing PT-OP-Q Treatments Start: 02/02/19 17:43 Freq: Status: Active Protocol: Document 03/10/19 10:34 MT (Rec: 03/10/19 11:29 MT [id number]) Cardio Equipment Recumbent Elliptical (Biodex) Duration (Minutes) 6 Resistance 9 Gym Equipment Shuttle Recovery Bilateral Squats Resistance 87# Shuttle Recovery Platform Stable Reps/Time 2x20 Therapeutic Ball sitting balance Exercise Details marches and kick outs Body Position Sitting Reps/Duration 15 each leg Comments pt struggled to maintain upright position with simultaneous leg movements. and was highly challenged and fatigued after the exercise. Manual Therapy Treatment Soft Tissue Mobilization Scar tissue Body Location scar tissue and L QL Mobilization Type Myofascial Release, Oscillations,Rolling,Strumming ,Sustained Pressure Intensity/Depth Moderate Body Position Sidelying PT-OP-R Modalities Start: 02/02/19 17:43 Freq: Status: Active Protocol: Document 03/10/19 10:34 MT (Rec: 03/10/19 11:29 MT [id number]) Hot Pack/Cold Pack Treatment Cold Pack Location lumbar Patient Position Sidelying Treatment Duration (minutes) 10 Patient Tolerance Good PT-OP-S Aquatic Treatment Start: 02/26/19 16:08 Freq: Status: Active Protocol: Document 03/15/19 10:15 LJ (Rec: 03/15/19 15:16 LJ [email or web address]) Aquatics Treatment Pool Entry/Exit Pool Entry/Exit Method Stairs Assistance Standby Assistance Water Walking stop/start/stabilize Water Level Chest Level Level of Assistance Standby Assistance,Contact Guard Assistance Comments forward and sideways directional changes Water Level Chest Level Level of Assistance Standby Assistance,Contact Guard Assistance,Minimal Assistance,Verbal Cues March Water Level Chest Level Level of Assistance Standby Assistance,Contact Guard Assistance,Minimal Assistance,Verbal Cues Sideways Water Level Chest Level Level of Assistance Standby Assistance,Contact Guard Assistance Forwards Water Level Chest Level Level of Assistance Standby Assistance,Contact Guard Assistance,Verbal Cues Lower Extremity Exercises hip figure 8 Details at wall Body Position Standing Water Level Chest Level Reps/Duration 8 bilat Comments pt requires manual assist step ups on boxes Details forward and sideways Water Level Waist Level Reps/Duration 12 min Comments many LOBs hip ab/ad Body Position Standing Water Level Chest Level Reps/Duration 2x10 Comments hh on wall hip flex/ext Body Position Standing Water Level Chest Level Reps/Duration 2x10 Comments hh on wall squats on box Details muscle sequence activation- [id number] Water Level Chest Level Reps/Duration 8 Comments hh on wall; good posture toe raises Body Position Standing Water Level Chest Level Reps/Duration x12 Comments hh on wall Lower Extremity Stretches ER/IR bilateral Details at wall Body Position Standing Water Level Chest Level Reps/Duration 45x2 Comments IR manually assisted gastroc Details at wall Body Position Standing Water Level Chest Level Reps/Duration 2x45 hip flexors Details at wall Body Position Standing Water Level Chest Level Reps/Duration 2x45 Comments manual cueing HS, Quad Details at wall Body Position Standing Water Level Chest Level Equipment Small Noodle Reps/Duration 2x45 sec each Upper Extremity Exercises flex/ext, ab,ad Body Position Standing Water Level Chest Level Reps/Duration 10 ea Comments for core stabilization Spinal Exercises spinal stabilization with perturbances Body Position Standing Water Level Chest Level Reps/Duration 3 min Comments moving water around pt Balance SLS bilaterally Reps/Duration 6x30 sec attempted Comments min hh on wall PT-OP-T Assessment and Plan Start: 02/02/19 17:43 Freq: Status: Active Protocol: Document 03/15/19 10:15 [facility] (Rec: 03/15/19 15:16 ALFREDITO [id number]) Physical Therapy Assessment Rehab Potential Rehabilitation Potential Good Evaluation Complexity Number of Personal Factors/Comorbidities 3 or More Number of Body Systems Impaired 4 or More Clinical Presentation at Evaluation Evolving Impairments Impairments Activity Tolerance,Balance, Functional Activities, Functional Mobility,Gait,Pain, Posture,ROM,Soft Tissue Mobility,Strength,Transfers Goals gait [facility]ci Goal (LTG) Pt will be able to walk for 10 min without requiring a rest break. LTG Duration 05/06/19 mobility Short Term Goal (STG) Pt will be indep with log roll technique and report less difficulty with getting in and out of bed and rolling in bed . STG Duration 03/18/19 [employer] Bookkeeper Goal (LTG) Pt will be able to get in and out of a chair without use of UE LTG Duration 05/06/19 strength Short Term Goal (STG) Pt will be indep with HEP and will be going to gym 2-3x/week . STG Duration 03/18/19 [facility] Goal (LTG) Pt will improve LE strength to at least 4+/5 in order to allow pt to return to typical activities and ADLs with greater ease. LTG Duration 05/06/19 fall risk Short Term Goal (STG) Pt will improve DE LA ROSA score to 35/56 to show dec fall risk with AD. STG Duration 03/18/19 [employer] Bookkeeper Goal (LTG) Pt will improve DE LA ROSA score to 50/56 in order to show pt to be less liekly to fall in the community. LTG Duration 05/06/19 Assessment Summary Assessment Pt continues to demonstrate difficulty with core stabilization in walking and fall recovery. Balance with stepping onto boxes continues to be very challenging. Physical Therapy Plan Frequency and Duration Frequency of Treatment 2x/Week Duration of Treatment 3 months Plan of Care Start Date 02/03/19 Plan of Care End Date 05/06/18 Next Visit Focus/Plan Next Note Type Treatment Note Next Visit Plan Assess pts response to pool session and progress as tolerated. Continue focus on core and LE strength.
--- NOTE | 2019-03-17 18:47 | PT.OTN ---
Current Diagnoses Polyneuropathy, unspecified (03/17/19) Spinal stenosis, lumbar region without neurogenic claudication (03/17/19) Difficulty in walking, not elsewhere classified (03/17/19) Other abnormalities of gait and mobility (03/17/19) Weakness (03/17/19) Physical Therapy Treatment Note PT-OP-A Visit Information Start: 02/02/19 17:43 Freq: Status: Active Protocol: Document 03/17/19 09:48 MT (Rec: 03/17/19 13:50 MT [id number]) Out-Patient Physical Therapy Visit Information Visit Information Visit Type Treatment Note Visit Start Time 09:48 Visit Stop Time 10:40 Total Visit Minutes 52 Visit Number 12 Number of FISHING WORKER Visits 0 PT-OP-B Current Condition Start: 02/02/19 17:43 Freq: Status: Active Protocol: Document 02/03/19 11:22 [facility] (Rec: 02/03/19 12:13 [facility] [id number]) Current Condition History of Current Condition Onset Date >30 year back pain Current Complaints back pain & dec balance History of Current Condition Pt reports he wants to walk around without falling. Pt reports he has 2-3 per month and typically gets momentum fwd and cannot control that so falls fwd. No difference based on terrain. Pt reports history of back pain for 30 years with 2 fusion surgies and a laminectomy the 3rd surgery. Pt has a pain stimulator in his back which helped at first but as he got used it, its been less effective. Pt reprots it was done about 6 years ago. Pt reports he goes 1x.week to the [facility], he gets in the pool. Pt reports PT has been helpful in the past. Pt reports balance has been getting worse of the past year or 2 especially recently. Prior Treatments and Tests multiple bouts of PT, mult shots, mult MRIs Treatment Goals Patient/Caregiver Goals Dec falls, Be able to walk further distances (to car with ease, down driveway), get in and out of chairs easier, get in and out of bed and roll easier PT-OP-C Subjective Start: 02/02/19 17:43 Freq: Status: Active Protocol: Document 03/17/19 09:48 MT (Rec: 03/17/19 13:50 MT [id number]) OP-PT Subjective Patient Comments Patient Comments Pt states that his balance has been awful the past 3 days. He has been very exhausted in general and his back has been more painful. He has not had the energy to do as many activities as he had been able to do before. He is typically tired after his therapy sessions. pt is exhausted after pool therapy this friday. PT-OP-D Balance Start: 02/02/19 17:43 Freq: Status: Active Protocol: Document 02/03/19 11:22 [facility] (Rec: 02/03/19 12:13 [facility] [id number]) Balance Tests De La Rosa Balance Test De La Rosa Balance Test Score 26 De [place] Rosa Impairment Rating 40 to 59% Impaired (Score 23- 33) PT-OP-F Manual Assessment Start: 02/02/19 17:43 Freq: Status: Active Protocol: Document 02/03/19 11:22 [facility] (Rec: 02/03/19 12:13 [facility] [id number]) Manual Assessments Soft Tissue Assessment Soft Tissue Mobility Assessment significant scar tissue tightness, ES B & QL B tightness PT-OP-G Mobility & Gait Start: 02/02/19 17:43 Freq: Status: Active Protocol: Document 02/03/19 11:22 [facility] (Rec: 02/03/19 12:13 [facility] [id number]) OP Gait Assessment Comments Gait Comments Pt amb with SPC with B lat leaning & fwd leaning. Dec overall push off PT-OP-M Strength Start: 02/02/19 17:43 Freq: Status: Active Protocol: Document 02/03/19 11:22 [facility] (Rec: 02/03/19 12:13 [facility] [id number]) Hip Strength Hip Manual Muscle Testing Left Flexion (L2) 4- Good- Extension (S1) 2+ Poor+ Abduction 3+ Fair+ External Rotation 3+ Fair+ Internal Rotation 3+ Fair+ Right Flexion (L2) 4 Good Extension (S1) 3 Fair Abduction 3+ Fair+ External Rotation 4- Good- Internal Rotation 4- Good- Knee Strength Knee Manual Muscle Testing Left Flexion (S2) 4 Good Extension (L3) 4+ Good+ Right Flexion (S2) 4 Good Extension (L3) 4 Good Ankle/Foot Strength Ankle and Foot Manual Muscle Testing Left Dorsiflexion (L4) 5 Normal Plantarflexion (S1) 5 Normal Right Dorsiflexion (L4) 4+ Good+ Plantarflexion (S1) 4+ Good+ Comments seated PF testing PT-OP-Q Treatments Start: 02/02/19 17:43 Freq: Status: Active Protocol: Document 03/17/19 09:48 MT (Rec: 03/17/19 13:50 MT [id number]) Cardio Equipment Recumbent Elliptical (Biodex) Duration (Minutes) 6 Resistance 8 Gym Equipment Cable Column (Body Solid) Lat Pull Down Resistance 20-30# Reps/Time 15 Therapeutic Exercises Supine Exercises resisted hip flexion Side bilateral Reps/Minutes 10 sec hold marches Side bilateral Reps/Minutes 15 each SLR Side bilateral Reps/Minutes 15 each LTR Side bilateral Reps/Minutes 15 each bridge Side bilateral Reps/Minutes 15 each Manual Therapy Treatment Soft Tissue Mobilization hip flexor/ant thigh Body Location hip flexor/ant thigh Mobilization Type Strumming,Sustained Pressure Intensity/Depth Moderate Body Position Hooklying Comments with contract relax technique to gain hip flexion ROM and improve folding of tissues Scar tissue Body Location scar tissue and L QL Mobilization Type Myofascial Release, Oscillations,Rolling,Strumming ,Sustained Pressure Intensity/Depth Moderate Body Position Sidelying PT-OP-R Modalities Start: 02/02/19 17:43 Freq: Status: Active Protocol: Document 03/17/19 09:48 MT (Rec: 03/17/19 13:50 MT [id number]) Hot Pack/Cold Pack Treatment Cold Pack Location lumbar Patient Position Sidelying Treatment Duration (minutes) 10 Patient Tolerance Good PT-OP-S Aquatic Treatment Start: 02/26/19 16:08 Freq: Status: Active Protocol: Document 03/15/19 10:15 LJ (Rec: 03/15/19 15:16 LJ [email or web address]) Aquatics Treatment Pool Entry/Exit Pool Entry/Exit Method Stairs Assistance Standby Assistance Water Walking stop/start/stabilize Water Level Chest Level Level of Assistance Standby Assistance,Contact Guard Assistance Comments forward and sideways directional changes Water Level Chest Level Level of Assistance Standby Assistance,Contact Guard Assistance,Minimal Assistance,Verbal Cues Marching Water Level Chest Level Level of Assistance Standby Assistance,Contact Guard Assistance,Minimal Assistance,Verbal Cues Sideways Water Level Chest Level Level of Assistance Standby Assistance,Contact Guard Assistance Forwards Water Level Chest Level Level of Assistance Standby Assistance,Contact Guard Assistance,Verbal Cues Lower Extremity Exercises hip figure 8 Details at wall Body Position Standing Water Level Chest Level Reps/Duration 8 bilat Comments pt requires manual assist step ups on boxes Details forward and sideways Water Level Waist Level Reps/Duration 12 min Comments many LOBs hip ab/ad Body Position Standing Water Level Chest Level Reps/Duration 2x10 Comments hh on wall hip flex/ext Body Position Standing Water Level Chest Level Reps/Duration 2x10 Comments hh on wall squats on box Details muscle sequence activation- [id number] Water Level Chest Level Reps/Duration 8 Comments hh on wall; good posture toe raises Body Position Standing Water Level Chest Level Reps/Duration x12 Comments hh on wall Lower Extremity Stretches ER/IR bilateral Details at wall Body Position Standing Water Level Chest Level Reps/Duration 45x2 Comments IR manually assisted gastroc Details at wall Body Position Standing Water Level Chest Level Reps/Duration 2x45 hip flexors Details at wall Body Position Standing Water Level Chest Level Reps/Duration 2x45 Comments manual cueing HS, Quad Details at wall Body Position Standing Water Level Chest Level Equipment Small Noodle Reps/Duration 2x45 sec each Upper Extremity Exercises flex/ext, ab,ad Body Position Standing Water Level Chest Level Reps/Duration 10 ea Comments for core stabilization Spinal Exercises spinal stabilization with perturbances Body Position Standing Water Level Chest Level Reps/Duration 3 min Comments moving water around pt Balance SLS bilaterally Reps/Duration 6x30 sec attempted Comments min hh on wall PT-OP-T Assessment and Plan Start: 02/02/19 17:43 Freq: Status: Active Protocol: Document 03/17/19 09:48 MT (Rec: 03/17/19 13:50 MT [id number]) Physical Therapy Assessment Goals gait [employer]culation Clerk Goal (LTG) Pt will be able to walk for 10 min without requiring a rest break. LTG Duration 05/06/19 mobility Short Term Goal (STG) Pt will be indep with log roll technique and report less difficulty with getting in and out of bed and rolling in bed . STG Duration 03/18/19 Jail Goal (LTG) Pt will be able to get in and out of a chair without use of UE LTG Duration 05/06/19 strength Short Term Goal (STG) Pt will be indep with HEP and will be going to gym 2-3x/week . STG Duration 03/18/19 Library Circulation Clerk Goal (LTG) Pt will improve LE strength to at least 4+/5 in order to allow pt to return to typical activities and ADLs with greater ease. LTG Duration 05/06/19 fall risk Short Term Goal (STG) Pt will improve DE LA ROSA score to 35/56 to show dec fall risk with AD. STG Duration 03/18/19 Library Circulation Clerk Goal (LTG) Pt will improve DE LA ROSA score to 50/56 in order to show pt to be less liekly to fall in the community. LTG Duration 05/06/19 Assessment Summary Assessment Pt continues to report severe back pain that is aggravated with standing and sitting activity. Performed exercises with focus in supine and sitting to avoid aggravation. Pt was able to tolerate supine exercises without aggravation of back pain as long as core was tight. Pt was easily fatigued. Pt was very limited in R hip flexion and unable to go beyond 90 degrees, so worked on manual stretching with contract relax and STM which increased pt's hip flexion range. Physical Therapy Plan Frequency and Duration Frequency of Treatment 2x/Week Duration of Treatment 3 months Plan of Care Start Date 02/03/19 Plan of Care End Date 05/06/18 Next Visit Focus/Plan Next Note Type Treatment Note Next Visit Plan continue focusinf on core and LE strengthening. Hip flexor mobility
--- NOTE | 2019-03-22 17:32 | PT.OTN ---
Current Diagnoses Polyneuropathy, unspecified (03/22/19) Spinal stenosis, lumbar region without neurogenic claudication (03/22/19) Difficulty in walking, not elsewhere classified (03/22/19) Other abnormalities of gait and mobility (03/22/19) Weakness (03/22/19) Physical Therapy Treatment Note PT-OP-A Visit Information Start: 02/02/19 17:43 Freq: Status: Active Protocol: Document 03/22/19 10:15 ALFREDITO (Rec: 03/22/19 17:32 LJ [id number]) Out-Patient Physical Therapy Visit Information Visit Information Visit Type Aquatic Treatment Note Visit Start Time 10:15 Visit Stop Time 11:00 Total Visit Minutes 45 Visit Number 13 Number of SUPERVISOR TELEVISION CHASSIS REPAIR Visits 1 PT-OP-B Current Condition Start: 02/02/19 17:43 Freq: Status: Active Protocol: Document 02/03/19 11:22 [facility] (Rec: 02/03/19 12:13 [facility] [id number]) Current Condition History of Current Condition Onset Date >30 year back pain Current Complaints back pain & dec balance History of Current Condition Pt reports he wants to walk around without falling. Pt reports he has 2-3 per month and typically gets momentum fwd and cannot control that so falls fwd. No difference based on terrain. Pt reports history of back pain for 30 years with 2 fusion surgies and a laminectomy the 3rd surgery. Pt has a pain stimulator in his back which helped at first but as he got used it, its been less effective. Pt reprots it was done about 6 years ago. Pt reports he goes 1x.week to the [facility], he gets in the pool. Pt reports PT has been helpful in the past. Pt reports balance has been getting worse of the past year or 2 especially recently. Prior Treatments and Tests multiple bouts of PT, mult shots, mult MRIs Treatment Goals Patient/Caregiver Goals Dec falls, Be able to walk further distances (to car with ease, down driveway), get in and out of chairs easier, get in and out of bed and roll easier PT-OP-C Subjective Start: 02/02/19 17:43 Freq: Status: Active Protocol: Document 03/22/19 10:15 LJ (Rec: 03/22/19 17:32 ALFREDITO [id number]) OP-PT Subjective Patient Comments Patient Comments Pt reports his balance has gotten worse and he nearly fell in the locker room. He had a nerve conduction test several days ago but does not have results back yet. PT-OP-D Balance Start: 02/02/19 17:43 Freq: Status: Active Protocol: Document 02/03/19 11:22 [facility] (Rec: 02/03/19 12:13 [facility] [id number]) Balance Tests De La Rosa Balance Test De La Rosa Balance Test Score 26 De La Rosa Impairment Rating 40 to 59% Impaired (Score 23- 33) PT-OP-F Manual Assessment Start: 02/02/19 17:43 Freq: Status: Active Protocol: Document 02/03/19 11:22 [facility] (Rec: 02/03/19 12:13 [facility] [id number]) Manual Assessments Soft Tissue Assessment Soft Tissue Mobility Assessment significant scar tissue tightness, ES B & QL B tightness PT-OP-G Mobility & Gait Start: 02/02/19 17:43 Freq: Status: Active Protocol: Document 02/03/19 11:22 [facility] (Rec: 02/03/19 12:13 [facility] [id number]) OP Gait Assessment Comments Gait Comments Pt amb with SPC with B lat leaning & fwd leaning. Dec overall push off PT-OP-M Strength Start: 02/02/19 17:43 Freq: Status: Active Protocol: Document 02/03/19 11:22 [facility] (Rec: 02/03/19 12:13 [facility] [id number]) Hip Strength Hip Manual Muscle Testing Left Flexion (L2) 4- Good- Extension (S1) 2+ Poor+ Abduction 3+ Fair+ External Rotation 3+ Fair+ Internal Rotation 3+ Fair+ Right Flexion (L2) 4 Good Extension (S1) 3 Fair Abduction 3+ Fair+ External Rotation 4- Good- Internal Rotation 4- Good- Knee Strength Knee Manual Muscle Testing Left Flexion (S2) 4 Good Extension (L3) 4+ Good+ Right Flexion (S2) 4 Good Extension (L3) 4 Good Ankle/Foot Strength Ankle and Foot Manual Muscle Testing Left Dorsiflexion (L4) 5 Normal Plantarflexion (S1) 5 Normal Right Dorsiflexion (L4) 4+ Good+ Plantarflexion (S1) 4+ Good+ Comments seated PF testing PT-OP-Q Treatments Start: 02/02/19 17:43 Freq: Status: Active Protocol: Document 03/17/19 09:48 MT (Rec: 03/17/19 13:50 MT [id number]) Cardio Equipment Recumbent Elliptical (Biodex) Duration (Minutes) 6 Resistance 8 Gym Equipment Cable Column (Body Solid) Lat Pull Down Resistance 20-30# Reps/Time 15 Therapeutic Exercises Supine Exercises resisted hip flexion Side bilateral Reps/Minutes 10 sec hold marches Side bilateral Reps/Minutes 15 each SLR Side bilateral Reps/Minutes 15 each LTR Side bilateral Reps/Minutes 15 each bridge Side bilateral Reps/Minutes 15 each Manual Therapy Treatment Soft Tissue Mobilization hip flexor/ant thigh Body Location hip flexor/ant thigh Mobilization Type Strumming,Sustained Pressure Intensity/Depth Moderate Body Position Hooklying Comments with contract relax technique to gain hip flexion ROM and improve folding of tissues Scar tissue Body Location scar tissue and L QL Mobilization Type Myofascial Release, Oscillations,Rolling,Strumming ,Sustained Pressure Intensity/Depth Moderate Body Position Sidelying PT-OP-R Modalities Start: 02/02/19 17:43 Freq: Status: Active Protocol: Document 03/17/19 09:48 MT (Rec: 03/17/19 13:50 MT [id number]) Hot Pack/Cold Pack Treatment Cold Pack Location lumbar Patient Position Sidelying Treatment Duration (minutes) 10 Patient Tolerance Good PT-OP-S Aquatic Treatment Start: 02/26/19 16:08 Freq: Status: Active Protocol: Document 03/22/19 10:15 LJ (Rec: 03/22/19 17:32 LJ [id number]) Aquatics Treatment Pool Entry/Exit Pool Entry/Exit Method Stairs Assistance Standby Assistance Water Walking sideways 2.0 Water Level Chest Level Level of Assistance Standby Assistance,Contact Guard Assistance,Minimal Assistance,Moderate Assistance ,Verbal Cues Comments HAdd HAbd opposite LEs-arms abd while LEs add stop/start/stabilize Water Level Chest Level Level of Assistance Standby Assistance,Contact Guard Assistance Comments forward and sideways directional changes Water Level Chest Level Level of Assistance Standby Assistance,Contact Guard Assistance,Minimal Assistance,Verbal Cues Marching Water Level Chest Level Level of Assistance Standby Assistance,Contact Guard Assistance,Minimal Assistance,Verbal Cues Comments HAdd HAbd arms Backwards Water Level Chest Level Level of Assistance Standby Assistance,Minimal Assistance,Moderate Assistance ,Verbal Cues Comments BS arms Sideways Water Level Chest Level Level of Assistance Standby Assistance,Contact Guard Assistance Comments abd add arms simultaneous with LE action Forwards Water Level Chest Level Level of Assistance Standby Assistance,Contact Guard Assistance,Verbal Cues Comments several LOB Lower Extremity Exercises hip figure 8 Details at wall Body Position Standing Water Level Chest Level Reps/Duration 8 bilat Comments pt requires manual assist step ups on boxes Details forward and sideways Water Level Waist Level Reps/Duration 18 min Comments many LOBs; various size boxes squats on box Details muscle sequence activation- [id number] Water Level Chest Level Reps/Duration 8 Comments hh on wall; good posture Lower Extremity Stretches ER/IR bilateral Details at wall Body Position Standing Water Level Chest Level Reps/Duration 45x2 Comments IR manually assisted gastroc Details at wall Body Position Standing Water Level Chest Level Reps/Duration 45x2 hip flexors Details at wall Body Position Standing Water Level Chest Level Reps/Duration 45x2 Comments manual cueing HS, Quad Details at wall Body Position Standing Water Level Chest Level Equipment Small Noodle Reps/Duration 45x2 PT-OP-T Assessment and Plan Start: 02/02/19 17:43 Freq: Status: Active Protocol: Document 03/22/19 10:15 ALFREDITO (Rec: 03/22/19 17:32 ALFREDITO [id number]) Physical Therapy Assessment Rehab Potential Rehabilitation Potential Good Evaluation Complexity Number of Personal Factors/Comorbidities 3 or More Number of Body Systems Impaired 4 or More Clinical Presentation at Evaluation Evolving Impairments Impairments Activity Tolerance,Balance, Coordination,Functional Activities,Functional Mobility ,Gait,Pain,Posture,ROM,Soft Tissue Mobility,Strength, Transfers Other Concerns Fall Risk high particularly at pool Goals gait Computer Video Game Designer Goal (LTG) Pt will be able to walk for 10 min without requiring a rest break. LTG Duration 05/06/19 mobility Short Term Goal (STG) Pt will be indep with log roll technique and report less difficulty with getting in and out of bed and rolling in bed . STG Duration 03/18/19 Snf Goal (LTG) Pt will be able to get in and out of a chair without use of UE LTG Duration 05/06/19 strength Short Term Goal (STG) Pt will be indep with HEP and will be going to gym 2-3x/week . STG Duration 03/18/19 Computer Video Game Designer Goal (LTG) Pt will improve LE strength to at least 4+/5 in order to allow pt to return to typical activities and ADLs with greater ease. LTG Duration 05/06/19 fall risk Short Term Goal (STG) Pt will improve DE LA ROSA score to 35/56 to show dec fall risk with AD. STG Duration 03/18/19 Computer Video Game Designer Goal (LTG) Pt will improve DE LA ROSA score to 50/56 in order to show pt to be less liekly to fall in the community. LTG Duration 05/06/19 Assessment Summary Assessment Pt continues to have difficulty with balance especially with step ups and downs using boxes. Coordination with sidestepping activity was very challenging with pt unable to maintain correct sequencing for more than several steps even with verbal and visual cueing. Pt was given FWW to use upon exiting the pool for safety getting back to the locker room. Pt advised to use FWW at pool at all times. Physical Therapy Plan Frequency and Duration Frequency of Treatment 2x/Week Duration of Treatment 3 months Plan of Care Start Date 02/03/19 Plan of Care End Date 05/06/18 Next Visit Focus/Plan Next Note Type Treatment Note Next Visit Plan continue focusing on core and LE strengthening. Hip flexor mobility. Pt advised he should use FWW at pool at all times for safety. Strengthen both LEs focusing on LLE
--- NOTE | 2019-03-29 15:22 | PT.OTN ---
Current Diagnoses Polyneuropathy, unspecified (03/29/19) Spinal stenosis, lumbar region without neurogenic claudication (03/29/19) Difficulty in walking, not elsewhere classified (03/29/19) Other abnormalities of gait and mobility (03/29/19) Weakness (03/29/19) Physical Therapy Treatment Note PT-OP-A Visit Information Start: 02/02/19 17:43 Freq: Status: Active Protocol: Document 03/29/19 10:15 ALFREDITO (Rec: 03/29/19 15:22 LJ [id number]) Out-Patient Physical Therapy Visit Information Visit Information Visit Type Aquatic Treatment Note Visit Start Time 10:15 Visit Stop Time 11:00 Total Visit Minutes 50 Visit Number 14 Number of CHOPPING MACHINE OPERATOR Visits 2 PT-OP-B Current Condition Start: 02/02/19 17:43 Freq: Status: Active Protocol: Document 02/03/19 11:22 [facility] (Rec: 02/03/19 12:13 [facility] [id number]) Current Condition History of Current Condition Onset Date >30 year back pain Current Complaints back pain & dec balance History of Current Condition Pt reports he wants to walk around without falling. Pt reports he has 2-3 per month and typically gets momentum fwd and cannot control that so falls fwd. No difference based on terrain. Pt reports history of back pain for 30 years with 2 fusion surgies and a laminectomy the 3rd surgery. Pt has a pain stimulator in his back which helped at first but as he got used it, its been less effective. Pt reprots it was done about 6 years ago. Pt reports he goes 1x.week to the [facility], he gets in the pool. Pt reports PT has been helpful in the past. Pt reports balance has been getting worse of the past year or 2 especially recently. Prior Treatments and Tests multiple bouts of PT, mult shots, mult MRIs Treatment Goals Patient/Caregiver Goals Dec falls, Be able to walk further distances (to car with ease, down driveway), get in and out of chairs easier, get in and out of bed and roll easier PT-OP-C Subjective Start: 02/02/19 17:43 Freq: Status: Active Protocol: Document 03/29/19 10:15 LJ (Rec: 03/29/19 15:22 LJ [id number]) OP-PT Subjective Patient Comments Patient Comments Pt reports falling x2 this past weekend-once off the porch and the other time when bending over to move laundry. PT-OP-D Balance Start: 02/02/19 17:43 Freq: Status: Active Protocol: Document 02/03/19 11:22 [facility] (Rec: 02/03/19 12:13 [facility] [id number]) Balance Tests De La Rosa Balance Test De La Rosa Balance Test Score 26 De La Rosa Impairment Rating 40 to 59% Impaired (Score 23- 33) PT-OP-F Manual Assessment Start: 02/02/19 17:43 Freq: Status: Active Protocol: Document 02/03/19 11:22 [facility] (Rec: 02/03/19 12:13 [facility] [id number]) Manual Assessments Soft Tissue Assessment Soft Tissue Mobility Assessment significant scar tissue tightness, ES B & QL B tightness PT-OP-G Mobility & Gait Start: 02/02/19 17:43 Freq: Status: Active Protocol: Document 02/03/19 11:22 [facility] (Rec: 02/03/19 12:13 [facility] [id number]) OP Gait Assessment Comments Gait Comments Pt amb with SPC with B lat leaning & fwd leaning. Dec overall push off PT-OP-M Strength Start: 02/02/19 17:43 Freq: Status: Active Protocol: Document 02/03/19 11:22 [facility] (Rec: 02/03/19 12:13 [facility] [id number]) Hip Strength Hip Manual Muscle Testing Left Flexion (L2) 4- Good- Extension (S1) 2+ Poor+ Abduction 3+ Fair+ External Rotation 3+ Fair+ Internal Rotation 3+ Fair+ Right Flexion (L2) 4 Good Extension (S1) 3 Fair Abduction 3+ Fair+ External Rotation 4- Good- Internal Rotation 4- Good- Knee Strength Knee Manual Muscle Testing Left Flexion (S2) 4 Good Extension (L3) 4+ Good+ Right Flexion (S2) 4 Good Extension (L3) 4 Good Ankle/Foot Strength Ankle and Foot Manual Muscle Testing Left Dorsiflexion (L4) 5 Normal Plantarflexion (S1) 5 Normal Right Dorsiflexion (L4) 4+ Good+ Plantarflexion (S1) 4+ Good+ Comments seated PF testing PT-OP-Q Treatments Start: 02/02/19 17:43 Freq: Status: Active Protocol: Document 03/17/19 09:48 MT (Rec: 03/17/19 13:50 MT [id number]) Cardio Equipment Recumbent Elliptical (Biodex) Duration (Minutes) 6 Resistance 8 Gym Equipment Cable Column (Body Solid) Lat Pull Down Resistance 20-30# Reps/Time 15 Therapeutic Exercises Supine Exercises resisted hip flexion Side bilateral Reps/Minutes 10 sec hold marches Side bilateral Reps/Minutes 15 each SLR Side bilateral Reps/Minutes 15 each LTR Side bilateral Reps/Minutes 15 each bridge Side bilateral Reps/Minutes 15 each Manual Therapy Treatment Soft Tissue Mobilization hip flexor/ant thigh Body Location hip flexor/ant thigh Mobilization Type Strumming,Sustained Pressure Intensity/Depth Moderate Body Position Hooklying Comments with contract relax technique to gain hip flexion ROM and improve folding of tissues Scar tissue Body Location scar tissue and L QL Mobilization Type Myofascial Release, Oscillations,Rolling,Strumming ,Sustained Pressure Intensity/Depth Moderate Body Position Sidelying PT-OP-R Modalities Start: 02/02/19 17:43 Freq: Status: Active Protocol: Document 03/17/19 09:48 MT (Rec: 03/17/19 13:50 MT [id number]) Hot Pack/Cold Pack Treatment Cold Pack Location lumbar Patient Position Sidelying Treatment Duration (minutes) 10 Patient Tolerance Good PT-OP-S Aquatic Treatment Start: 02/26/19 16:08 Freq: Status: Active Protocol: Document 03/29/19 10:15 LJ (Rec: 03/29/19 15:22 LJ [id number]) Aquatics Treatment Pool Entry/Exit Pool Entry/Exit Method Stairs Assistance Standby Assistance Water Walking stop/start/stabilize Water Level Chest Level Level of Assistance Standby Assistance,Contact Guard Assistance,Minimal Assistance,Moderate Assistance ,Verbal Cues Comments forward and sideways directional changes Water Level Chest Level Level of Assistance Standby Assistance,Contact Guard Assistance,Minimal Assistance,Moderate Assistance ,Verbal Cues Marching Water Level Chest Level Level of Assistance Standby Assistance,Contact Guard Assistance,Minimal Assistance,Verbal Cues Comments HAdd HAbd arms Backwards Water Level Chest Level Level of Assistance Standby Assistance,Minimal Assistance,Moderate Assistance ,Verbal Cues Comments BS arms Sideways Water Level Chest Level Level of Assistance Standby Assistance,Contact Guard Assistance Comments abd add arms simultaneous with LE action Forwards Water Level Chest Level Level of Assistance Standby Assistance,Contact Guard Assistance,Verbal Cues Comments several LOB Lower Extremity Exercises hip figure 8 Details at wall Body Position Standing Water Level Chest Level Reps/Duration 8 bilat Comments pt requires manual assist step ups on boxes Details forward and sideways Water Level Waist Level Reps/Duration 18 min Comments many LOBs; various size boxes hip ab/ad Body Position Standing Water Level Chest Level Reps/Duration 2x10 Comments hh on wall hip flex/ext Body Position Standing Water Level Chest Level Reps/Duration 2x10 Comments hh on wall Lower Extremity Stretches ER/IR bilateral Details at wall Body Position Standing Water Level Chest Level Reps/Duration 45x2 Comments IR manually assisted gastroc Details at wall Body Position Standing Water Level Chest Level Reps/Duration 45x2 hip flexors Details at wall Body Position Standing Water Level Chest Level Reps/Duration 45x2 Comments manual cueing HS, Quad Details at wall Body Position Standing Water Level Chest Level Equipment Small Noodle Reps/Duration 45x2 Spinal Exercises spinal stabilization with perturbances Body Position Standing Water Level Chest Level Reps/Duration 3 min Comments moving water around pt Balance weight shifting forward and backward; side to side Body Position Standing Water Level Chest Level Reps/Duration 4 min Comments forward-backward with difficulty boxes Details step up and over Water Level Chest Level Equipment 8 boxes Reps/Duration 12 min Comments pt with much difficulty in waist deep SLS bilaterally Reps/Duration 6x10 sec attempted Comments min hh on wall PT-OP-T Assessment and Plan Start: 02/02/19 17:43 Freq: Status: Active Protocol: Document 03/29/19 10:15 ALFREDITO (Rec: 03/29/19 15:22 ALFREDITO [id number]) Physical Therapy Assessment Rehab Potential Rehabilitation Potential Good Evaluation Complexity Number of Personal Factors/Comorbidities 3 or More Number of Body Systems Impaired 4 or More Clinical Presentation at Evaluation Evolving Impairments Impairments Activity Tolerance,Balance, Coordination,Functional Activities,Functional Mobility ,Gait,Pain,Posture,ROM,Soft Tissue Mobility,Strength, Transfers Other Concerns Fall Risk high particularly at pool; must use FWW after tx session returning to aileen Goals gait [facility] Goal (LTG) Pt will be able to walk for 10 min without requiring a rest break. LTG Duration 05/06/19 mobility Short Term Goal (STG) Pt will be indep with log roll technique and report less difficulty with getting in and out of bed and rolling in bed . STG Duration 03/18/19 [facility] Goal (LTG) Pt will be able to get in and out of a chair without use of UE LTG Duration 05/06/19 strength Short Term Goal (STG) Pt will be indep with HEP and will be going to gym 2-3x/week . STG Duration 03/18/19 Aerophysicist Goal (LTG) Pt will improve LE strength to at least 4+/5 in order to allow pt to return to typical activities and ADLs with greater ease. LTG Duration 05/06/19 fall risk Short Term Goal (STG) Pt will improve DE LA ROSA score to 35/56 to show dec fall risk with AD. STG Duration 03/18/19 [facility] Goal (LTG) Pt will improve DE LA ROSA score to 50/56 in order to show pt to be less liekly to fall in the community. LTG Duration 05/06/19 Assessment Summary Assessment Pt has increased difficutly with balance particularly with transitioning movements. SLS is challenging for more than a few seconds and with weight shifting. Pts coordination and balance is declining in the pool. Physical Therapy Plan Frequency and Duration Frequency of Treatment 2x/Week Duration of Treatment 3 months Plan of Care Start Date 02/03/19 Plan of Care End Date 05/06/18 Next Visit Focus/Plan Next Note Type Treatment Note Next Visit Plan Focus treatment on balance and coordination with strengthening of LEs and core for greater stability on land.
--- NOTE | 2019-03-31 11:53 | PT.OTN ---
Current Diagnoses Polyneuropathy, unspecified (03/31/19) Spinal stenosis, lumbar region without neurogenic claudication (03/31/19) Difficulty in walking, not elsewhere classified (03/31/19) Other abnormalities of gait and mobility (03/31/19) Weakness (03/31/19) Physical Therapy Treatment Note PT-OP-A Visit Information Start: 02/02/19 17:43 Freq: Status: Active Protocol: Document 03/31/19 10:32 MT (Rec: 03/31/19 11:30 MT [id number]) Out-Patient Physical Therapy Visit Information Visit Information Visit Type Treatment Note Visit Start Time 10:32 Visit Stop Time 11:25 Total Visit Minutes 53 Visit Number 15 Number of CERTIFIED HYPERBARIC TECHNOLOGIST Visits 0 PT-OP-B Current Condition Start: 02/02/19 17:43 Freq: Status: Active Protocol: Document 02/03/19 11:22 [facility] (Rec: 02/03/19 12:13 [facility] [id number]) Current Condition History of Current Condition Onset Date >30 year back pain Current Complaints back pain & dec balance History of Current Condition Pt reports he wants to walk around without falling. Pt reports he has 2-3 per month and typically gets momentum fwd and cannot control that so falls fwd. No difference based on terrain. Pt reports history of back pain for 30 years with 2 fusion surgies and a laminectomy the 3rd surgery. Pt has a pain stimulator in his back which helped at first but as he got used it, its been less effective. Pt reprots it was done about 6 years ago. Pt reports he goes 1x.week to the [facility], he gets in the pool. Pt reports PT has been helpful in the past. Pt reports balance has been getting worse of the past year or 2 especially recently. Prior Treatments and Tests multiple bouts of PT, mult shots, mult MRIs Treatment Goals Patient/Caregiver Goals Dec falls, Be able to walk further distances (to car with ease, down driveway), get in and out of chairs easier, get in and out of bed and roll easier PT-OP-C Subjective Start: 02/02/19 17:43 Freq: Status: Active Protocol: Document 03/31/19 10:32 MT (Rec: 03/31/19 11:30 MT [id number]) OP-PT Subjective Patient Comments Patient Comments Pt reports that he fell this weekend by tripping over a broom that his left. He had an appt with his neurologist last week, but reported no significant findings from that. Pt reports that his balance and activity tolerance has been further decreasing. PT-OP-D Balance Start: 02/02/19 17:43 Freq: Status: Active Protocol: Document 02/03/19 11:22 [facility] (Rec: 02/03/19 12:13 [facility] [id number]) Balance Tests De La Rosa Balance Test De La Rosa Balance Test Score 26 De La Rosa Impairment Rating 40 to 59% Impaired (Score 23- 33) PT-OP-F Manual Assessment Start: 02/02/19 17:43 Freq: Status: Active Protocol: Document 02/03/19 11:22 [facility] (Rec: 02/03/19 12:13 [facility] [id number]) Manual Assessments Soft Tissue Assessment Soft Tissue Mobility Assessment significant scar tissue tightness, ES B & QL B tightness PT-OP-G Mobility & Gait Start: 02/02/19 17:43 Freq: Status: Active Protocol: Document 02/03/19 11:22 [facility] (Rec: 02/03/19 12:13 [facility] [id number]) OP Gait Assessment Comments Gait Comments Pt amb with SPC with B lat leaning & fwd leaning. Dec overall push off PT-OP-M Strength Start: 02/02/19 17:43 Freq: Status: Active Protocol: Document 02/03/19 11:22 [facility] (Rec: 02/03/19 12:13 [facility] [id number]) Hip Strength Hip Manual Muscle Testing Left Flexion (L2) 4- Good- Extension (S1) 2+ Poor+ Abduction 3+ Fair+ External Rotation 3+ Fair+ Internal Rotation 3+ Fair+ Right Flexion (L2) 4 Good Extension (S1) 3 Fair Abduction 3+ Fair+ External Rotation 4- Good- Internal Rotation 4- Good- Knee Strength Knee Manual Muscle Testing Left Flexion (S2) 4 Good Extension (L3) 4+ Good+ Right Flexion (S2) 4 Good Extension (L3) 4 Good Ankle/Foot Strength Ankle and Foot Manual Muscle Testing Left Dorsiflexion (L4) 5 Normal Plantarflexion (S1) 5 Normal Right Dorsiflexion (L4) 4+ Good+ Plantarflexion (S1) 4+ Good+ Comments seated PF testing PT-OP-Q Treatments Start: 02/02/19 17:43 Freq: Status: Active Protocol: Document 03/31/19 10:32 MT (Rec: 03/31/19 11:30 MT [id number]) Cardio Equipment Recumbent Elliptical (Biodex) Duration (Minutes) 6 Resistance 5 Gym Equipment Cable Column (Body Solid) Lat Pull Down Resistance 20# Reps/Time 15 x 2 sets Shuttle Recovery Bilateral Squats Resistance 75-87# Shuttle Recovery Platform Stable Reps/Time 15 x 3 sets Therapeutic Exercises Supine Exercises resisted hip flexion Side bilateral Reps/Minutes 10 second holds x 3 each marches Side bilateral Reps/Minutes 15 ea SLR Side bilateral Reps/Minutes 15ea LTR Side bilateral Reps/Minutes 10ea bridge Side bilateral Reps/Minutes 15 Sidelying Exercises clam shells Side bilateral Reps/Minutes 10ea hip abd Side bilateral Reps/Minutes 10ea Manual Therapy Treatment Soft Tissue Mobilization hip flexor/ant thigh Body Location R hip Mobilization Type Strumming,Sustained Pressure Intensity/Depth Moderate Body Position Hooklying Comments with contract relax technique to gain hip flexion ROM and improve folding of tissues PT-OP-R Modalities Start: 02/02/19 17:43 Freq: Status: Active Protocol: Document 03/31/19 10:32 MT (Rec: 03/31/19 11:30 MT [id number]) Hot Pack/Cold Pack Treatment Cold Pack Location lumbar Patient Position Sidelying Treatment Duration (minutes) 10 Patient Tolerance Good PT-OP-S Aquatic Treatment Start: 02/26/19 16:08 Freq: Status: Active Protocol: Document 03/29/19 10:15 LJ (Rec: 03/29/19 15:22 LJ [id number]) Aquatics Treatment Pool Entry/Exit Pool Entry/Exit Method Stairs Assistance Standby Assistance Water Walking stop/start/stabilize Water Level Chest Level Level of Assistance Standby Assistance,Contact Guard Assistance,Minimal Assistance,Moderate Assistance ,Verbal Cues Comments forward and sideways directional changes Water Level Chest Level Level of Assistance Standby Assistance,Contact Guard Assistance,Minimal Assistance,Moderate Assistance ,Verbal Cues Marching Water Level Chest Level Level of Assistance Standby Assistance,Contact Guard Assistance,Minimal Assistance,Verbal Cues Comments HAdd HAbd arms Backwards Water Level Chest Level Level of Assistance Standby Assistance,Minimal Assistance,Moderate Assistance ,Verbal Cues Comments BS arms Sideways Water Level Chest Level Level of Assistance Standby Assistance,Contact Guard Assistance Comments abd add arms simultaneous with LE action Forwards Water Level Chest Level Level of Assistance Standby Assistance,Contact Guard Assistance,Verbal Cues Comments several LOB Lower Extremity Exercises hip figure 8 Details at wall Body Position Standing Water Level Chest Level Reps/Duration 8 bilat Comments pt requires manual assist step ups on boxes Details forward and sideways Water Level Waist Level Reps/Duration 18 min Comments many LOBs; various size boxes hip ab/ad Body Position Standing Water Level Chest Level Reps/Duration 2x10 Comments hh on wall hip flex/ext Body Position Standing Water Level Chest Level Reps/Duration 2x10 Comments hh on wall Lower Extremity Stretches ER/IR bilateral Details at wall Body Position Standing Water Level Chest Level Reps/Duration 45x2 Comments IR manually assisted gastroc Details at wall Body Position Standing Water Level Chest Level Reps/Duration 45x2 hip flexors Details at wall Body Position Standing Water Level Chest Level Reps/Duration 45x2 Comments manual cueing HS, Quad Details at wall Body Position Standing Water Level Chest Level Equipment Small Noodle Reps/Duration 45x2 Spinal Exercises spinal stabilization with perturbances Body Position Standing Water Level Chest Level Reps/Duration 3 min Comments moving water around pt Balance weight shifting forward and backward; side to side Body Position Standing Water Level Chest Level Reps/Duration 4 min Comments forward-backward with difficulty boxes Details step up and over Water Level Chest Level Equipment 8 boxes Reps/Duration 12 min Comments pt with much difficulty in waist deep SLS bilaterally Reps/Duration 6x10 sec attempted Comments min hh on wall PT-OP-T Assessment and Plan Start: 02/02/19 17:43 Freq: Status: Active Protocol: Document 03/31/19 10:32 MT (Rec: 03/31/19 11:30 MT [id number]) Physical Therapy Assessment Goals gait [facility] Goal (LTG) Pt will be able to walk for 10 min without requiring a rest break. LTG Duration 05/06/19 mobility Short Term Goal (STG) Pt will be indep with log roll technique and report less difficulty with getting in and out of bed and rolling in bed . STG Duration 03/18/19 Medical Cost Consultant Goal (LTG) Pt will be able to get in and out of a chair without use of UE LTG Duration 05/06/19 strength Short Term Goal (STG) Pt will be indep with HEP and will be going to gym 2-3x/week . STG Duration 03/18/19 [facility] Goal (LTG) Pt will improve LE strength to at least 4+/5 in order to allow pt to return to typical activities and ADLs with greater ease. LTG Duration 05/06/19 fall risk Short Term Goal (STG) Pt will improve DE LA ROSA score to 35/56 to show dec fall risk with AD. STG Duration 03/18/19 Medical Cost Consultant Goal (LTG) Pt will improve DE LA ROSA score to 50/56 in order to show pt to be less liekly to fall in the community. LTG Duration 05/06/19 Assessment Summary Assessment Pt has had decreased balance with gait. During gait from lobby to gym pt had 3 LOB events with R foot catching on cane. Focused session on seated and laying positions due to pt's decreased balance and activity tolerance in standing. Pt tolerated exercises well with minor aggravation of back pain after multiple sets of certain exercises. Pt had improved R hip flexion AROM following STM and manual stretching tehcniques. Physical Therapy Plan Frequency and Duration Frequency of Treatment 2x/Week Duration of Treatment 3 months Plan of Care Start Date 02/03/19 Plan of Care End Date 05/06/18 Next Visit Focus/Plan Next Note Type Treatment Note Next Visit Plan Discuss with pt about getting a walker in order to increase his safety with ambulation and begin gait training with walker, Focus treatment on balance and coordination with strengthening of LEs and core for greater stability on land, pelvic girdle PNF
--- NOTE | 2019-04-05 15:27 | PT.OTN ---
Current Diagnoses Polyneuropathy, unspecified (03/31/19) Spinal stenosis, lumbar region without neurogenic claudication (03/31/19) Difficulty in walking, not elsewhere classified (03/31/19) Other abnormalities of gait and mobility (03/31/19) Weakness (03/31/19) Physical Therapy Treatment Note PT-OP-A Visit Information Start: 02/02/19 17:43 Freq: Status: Active Protocol: Document 04/05/19 10:15 [facility] (Rec: 04/05/19 15:27 LJ [id number]) Out-Patient Physical Therapy Visit Information Visit Information Visit Type Aquatic Treatment Note Visit Start Time 10:15 Visit Stop Time 11:00 Total Visit Minutes 45 Visit Number 16 Number of MEDIATION COMMISSIONER Visits 1 PT-OP-B Current Condition Start: 02/02/19 17:43 Freq: Status: Active Protocol: Document 02/03/19 11:22 [facility] (Rec: 02/03/19 12:13 [facility] [id number]) Current Condition History of Current Condition Onset Date >30 year back pain Current Complaints back pain & dec balance History of Current Condition Pt reports he wants to walk around without falling. Pt reports he has 2-3 per month and typically gets momentum fwd and cannot control that so falls fwd. No difference based on terrain. Pt reports history of back pain for 30 years with 2 fusion surgies and a laminectomy the 3rd surgery. Pt has a pain stimulator in his back which helped at first but as he got used it, its been less effective. Pt reprots it was done about 6 years ago. Pt reports he goes 1x.week to the [facility], he gets in the pool. Pt reports PT has been helpful in the past. Pt reports balance has been getting worse of the past year or 2 especially recently. Prior Treatments and Tests multiple bouts of PT, mult shots, mult MRIs Treatment Goals Patient/Caregiver Goals Dec falls, Be able to walk further distances (to car with ease, down driveway), get in and out of chairs easier, get in and out of bed and roll easier PT-OP-C Subjective Start: 02/02/19 17:43 Freq: Status: Active Protocol: Document 04/05/19 10:15 LJ (Rec: 04/05/19 15:27 [facility] [id number]) OP-PT Subjective Patient Comments Patient Comments Pt did not report and falling episodes this weekend. Pt is concerned about declining strength and ability to walk safely around the yard. PT-OP-D Balance Start: 02/02/19 17:43 Freq: Status: Active Protocol: Document 02/03/19 11:22 [facility] (Rec: 02/03/19 12:13 [facility] [id number]) Balance Tests De La Rosa Balance Test De La Rosa Balance Test Score 26 De [place] Rosa Impairment Rating 40 to 59% Impaired (Score 23- 33) PT-OP-F Manual Assessment Start: 02/02/19 17:43 Freq: Status: Active Protocol: Document 02/03/19 11:22 [facility] (Rec: 02/03/19 12:13 [facility] [id number]) Manual Assessments Soft Tissue Assessment Soft Tissue Mobility Assessment significant scar tissue tightness, ES B & QL B tightness PT-OP-G Mobility & Gait Start: 02/02/19 17:43 Freq: Status: Active Protocol: Document 02/03/19 11:22 [facility] (Rec: 02/03/19 12:13 [facility] [id number]) OP Gait Assessment Comments Gait Comments Pt amb with SPC with B lat leaning & fwd leaning. Dec overall push off PT-OP-M Strength Start: 02/02/19 17:43 Freq: Status: Active Protocol: Document 02/03/19 11:22 [facility] (Rec: 02/03/19 12:13 [facility] [id number]) Hip Strength Hip Manual Muscle Testing Left Flexion (L2) 4- Good- Extension (S1) 2+ Poor+ Abduction 3+ Fair+ External Rotation 3+ Fair+ Internal Rotation 3+ Fair+ Right Flexion (L2) 4 Good Extension (S1) 3 Fair Abduction 3+ Fair+ External Rotation 4- Good- Internal Rotation 4- Good- Knee Strength Knee Manual Muscle Testing Left Flexion (S2) 4 Good Extension (L3) 4+ Good+ Right Flexion (S2) 4 Good Extension (L3) 4 Good Ankle/Foot Strength Ankle and Foot Manual Muscle Testing Left Dorsiflexion (L4) 5 Normal Plantarflexion (S1) 5 Normal Right Dorsiflexion (L4) 4+ Good+ Plantarflexion (S1) 4+ Good+ Comments seated PF testing PT-OP-Q Treatments Start: 02/02/19 17:43 Freq: Status: Active Protocol: Document 03/31/19 10:32 MT (Rec: 03/31/19 11:30 MT [id number]) Cardio Equipment Recumbent Elliptical (Biodex) Duration (Minutes) 6 Resistance 5 Gym Equipment Cable Column (Body Solid) Lat Pull Down Resistance 20# Reps/Time 15 x 2 sets Shuttle Recovery Bilateral Squats Resistance 75-87# Shuttle Recovery Platform Stable Reps/Time 15 x 3 sets Therapeutic Exercises Supine Exercises resisted hip flexion Side bilateral Reps/Minutes 10 second holds x 3 each marches Side bilateral Reps/Minutes 15 ea SLR Side bilateral Reps/Minutes 15ea LTR Side bilateral Reps/Minutes 10ea bridge Side bilateral Reps/Minutes 15 Sidelying Exercises clam shells Side bilateral Reps/Minutes 10ea hip abd Side bilateral Reps/Minutes 10ea Manual Therapy Treatment Soft Tissue Mobilization hip flexor/ant thigh Body Location R hip Mobilization Type Strumming,Sustained Pressure Intensity/Depth Moderate Body Position Hooklying Comments with contract relax technique to gain hip flexion ROM and improve folding of tissues PT-OP-R Modalities Start: 02/02/19 17:43 Freq: Status: Active Protocol: Document 03/31/19 10:32 MT (Rec: 03/31/19 11:30 MT [id number]) Hot Pack/Cold Pack Treatment Cold Pack Location lumbar Patient Position Sidelying Treatment Duration (minutes) 10 Patient Tolerance Good PT-OP-S Aquatic Treatment Start: 02/26/19 16:08 Freq: Status: Active Protocol: Document 04/05/19 10:15 LJ (Rec: 04/05/19 15:27 LJ [id number]) Aquatics Treatment Pool Entry/Exit Pool Entry/Exit Method Stairs Assistance Standby Assistance Water Walking sideways 2.0 Water Level Chest Level Walking Equipment Ankle Weight- 2.5# Level of Assistance Standby Assistance,Contact Guard Assistance,Minimal Assistance,Moderate Assistance ,Verbal Cues Comments HAdd HAbd opposite LEs-arms abd while LEs add stop/start/stabilize Water Level Chest Level Walking Equipment Ankle Weight- 2.5# Level of Assistance Standby Assistance,Contact Guard Assistance,Minimal Assistance,Verbal Cues Comments forward and sideways directional changes Water Level Chest Level Walking Equipment Ankle Weight- 2.5# Level of Assistance Standby Assistance,Contact Guard Assistance,Minimal Assistance,Verbal Cues Marching Water Level Chest Level Walking Equipment Ankle Weight- 2.5# Level of Assistance Standby Assistance,Contact Guard Assistance,Minimal Assistance,Verbal Cues Comments HAdd HAbd arms Backwards Water Level Chest Level Walking Equipment Ankle Weight- 2.5# Level of Assistance Standby Assistance,Minimal Assistance,Moderate Assistance ,Verbal Cues Comments BS arms Sideways Water Level Chest Level Walking Equipment Ankle Weight- 2.5# Level of Assistance Standby Assistance,Contact Guard Assistance Comments abd add arms simultaneous with LE action Forwards Water Level Chest Level Walking Equipment Ankle Weight- 2.5# Level of Assistance Standby Assistance,Verbal Cues Comments several LOB Lower Extremity Exercises heel raises Body Position Standing Equipment Ankle Weight- 2.5# Reps/Duration 10 Comments hh on wall step ups on boxes Details forward and sideways Water Level Waist Level Equipment [place] Float Reps/Duration 8 min Comments many LOBs; various size boxes squats on box Details muscle sequence activation- [id number] Water Level Chest Level Equipment Ankle Weight- 2.5# Reps/Duration 4 Comments hh on wall; good posture toe raises Body Position Standing Water Level Chest Level Equipment Ankle Weight- 2.5# Reps/Duration x12 Comments hh on wall Lower Extremity Stretches ER/IR bilateral Details at wall Body Position Standing Water Level Chest Level Reps/Duration 45x2 Comments IR manually assisted gastroc Details at wall Body Position Standing Water Level Chest Level Reps/Duration 45x2 hip flexors Details at wall Body Position Standing Water Level Chest Level Reps/Duration 45x2 Comments manual cueing HS, Quad Details at wall Body Position Standing Water Level Chest Level Equipment Small Noodle Reps/Duration 45x2 Spinal Exercises reciprocal gait practise Details stationary at wall Body Position Standing Water Level Waist Level Equipment Ankle Weight- 2.5# Reps/Duration 8 min Comments neuro re-ed for alternate arm- leg swing Balance weight shifting forward and backward; side to side Body Position Standing Water Level Chest Level Reps/Duration 4 min Comments forward-backward with difficulty [place] Activities [place] Activities Bicycle,Cross Country,Running Equipment lg belt, sm BBs Duration 8 min PT-OP-T Assessment and Plan Start: 02/02/19 17:43 Freq: Status: Active Protocol: Document 04/05/19 10:15 [facility] (Rec: 04/05/19 15:27 [facility] [id number]) Physical Therapy Assessment Rehab Potential Rehabilitation Potential Good Impairments Impairments Activity Tolerance,Balance, Coordination,Functional Activities,Functional Mobility ,Gait,Pain,Posture,ROM,Soft Tissue Mobility,Strength, Transfers Other Concerns Fall Risk high particularly at pool; must use FWW after tx session returning to aileen Goals gait Pharmaceutical Analyst Goal (LTG) Pt will be able to walk for 10 min without requiring a rest break. LTG Duration 05/06/19 mobility Short Term Goal (STG) Pt will be indep with log roll technique and report less difficulty with getting in and out of bed and rolling in bed . STG Duration 03/18/19 Pharmaceutical Analyst Goal (LTG) Pt will be able to get in and out of a chair without use of UE LTG Duration 05/06/19 strength Short Term Goal (STG) Pt will be indep with HEP and will be going to gym 2-3x/week . STG Duration 03/18/19 Pharmaceutical Analyst Goal (LTG) Pt will improve LE strength to at least 4+/5 in order to allow pt to return to typical activities and ADLs with greater ease. LTG Duration 05/06/19 fall risk Short Term Goal (STG) Pt will improve DE LA ROSA score to 35/56 to show dec fall risk with AD. STG Duration 03/18/19 [facility] Goal (LTG) Pt will improve DE LA ROSA score to 50/56 in order to show pt to be less liekly to fall in the community. LTG Duration 05/06/19 Assessment Summary Assessment Pt continues to be challenged with gait mechanics and coordination along with balance in the pool. Adding wts to lhis ankles helped him ground his feet better. Still having difficulty with coordinating gait pattern even while standing at wall using wall taps with UEs and LEs for reference and feedback. Physical Therapy Plan Frequency and Duration Frequency of Treatment 2x/Week Duration of Treatment 3 months Plan of Care Start Date 02/03/19 Plan of Care End Date 05/06/18 Next Visit Focus/Plan Next Note Type Treatment Note Next Visit Plan Continue to address balance and coordination activities in [place] for safer ambulation and functional activities on land
--- NOTE | 2019-04-07 18:18 | PT.OTN ---
Current Diagnoses Polyneuropathy, unspecified (04/07/19) Spinal stenosis, lumbar region without neurogenic claudication (04/07/19) Difficulty in walking, not elsewhere classified (04/07/19) Other abnormalities of gait and mobility (04/07/19) Weakness (04/07/19) Physical Therapy Treatment Note PT-OP-A Visit Information Start: 02/02/19 17:43 Freq: Status: Active Protocol: Document 04/07/19 10:30 MT (Rec: 04/07/19 12:49 MT [id number]) Out-Patient Physical Therapy Visit Information Visit Information Visit Type Treatment Note Visit Start Time 10:30 Visit Stop Time 11:23 Total Visit Minutes 53 Visit Number 17 Number of BASKET FILLER Visits 0 PT-OP-B Current Condition Start: 02/02/19 17:43 Freq: Status: Active Protocol: Document 02/03/19 11:22 [facility] (Rec: 02/03/19 12:13 [facility] [id number]) Current Condition History of Current Condition Onset Date >30 year back pain Current Complaints back pain & dec balance History of Current Condition Pt reports he wants to walk around without falling. Pt reports he has 2-3 per month and typically gets momentum fwd and cannot control that so falls fwd. No difference based on terrain. Pt reports history of back pain for 30 years with 2 fusion surgies and a laminectomy the 3rd surgery. Pt has a pain stimulator in his back which helped at first but as he got used it, its been less effective. Pt reprots it was done about 6 years ago. Pt reports he goes 1x.week to the [facility], he gets in the pool. Pt reports PT has been helpful in the past. Pt reports balance has been getting worse of the past year or 2 especially recently. Prior Treatments and Tests multiple bouts of PT, mult shots, mult MRIs Treatment Goals Patient/Caregiver Goals Dec falls, Be able to walk further distances (to car with ease, down driveway), get in and out of chairs easier, get in and out of bed and roll easier PT-OP-C Subjective Start: 02/02/19 17:43 Freq: Status: Active Protocol: Document 04/07/19 10:30 MT (Rec: 04/07/19 12:49 MT [id number]) OP-PT Subjective Patient Comments Patient Comments Pt reported that he had his CT scan yesterday but results are not in yet. He reported that his back felt pretty good today, but he is still unsteady with his gait. He says he trips over his cane a lot. PT-OP-D Balance Start: 02/02/19 17:43 Freq: Status: Active Protocol: Document 02/03/19 11:22 [facility] (Rec: 02/03/19 12:13 [facility] [id number]) Balance Tests De La Rosa Balance Test De La Rosa Balance Test Score 26 De [place] Rosa Impairment Rating 40 to 59% Impaired (Score 23- 33) PT-OP-F Manual Assessment Start: 02/02/19 17:43 Freq: Status: Active Protocol: Document 02/03/19 11:22 [facility] (Rec: 02/03/19 12:13 [facility] [id number]) Manual Assessments Soft Tissue Assessment Soft Tissue Mobility Assessment significant scar tissue tightness, ES B & QL B tightness PT-OP-G Mobility & Gait Start: 02/02/19 17:43 Freq: Status: Active Protocol: Document 02/03/19 11:22 [facility] (Rec: 02/03/19 12:13 [facility] [id number]) OP Gait Assessment Comments Gait Comments Pt amb with SPC with B lat leaning & fwd leaning. Dec overall push off PT-OP-M Strength Start: 02/02/19 17:43 Freq: Status: Active Protocol: Document 02/03/19 11:22 [facility] (Rec: 02/03/19 12:13 [facility] [id number]) Hip Strength Hip Manual Muscle Testing Left Flexion (L2) 4- Good- Extension (S1) 2+ Poor+ Abduction 3+ Fair+ External Rotation 3+ Fair+ Internal Rotation 3+ Fair+ Right Flexion (L2) 4 Good Extension (S1) 3 Fair Abduction 3+ Fair+ External Rotation 4- Good- Internal Rotation 4- Good- Knee Strength Knee Manual Muscle Testing Left Flexion (S2) 4 Good Extension (L3) 4+ Good+ Right Flexion (S2) 4 Good Extension (L3) 4 Good Ankle/Foot Strength Ankle and Foot Manual Muscle Testing Left Dorsiflexion (L4) 5 Normal Plantarflexion (S1) 5 Normal Right Dorsiflexion (L4) 4+ Good+ Plantarflexion (S1) 4+ Good+ Comments seated PF testing PT-OP-Q Treatments Start: 02/02/19 17:43 Freq: Status: Active Protocol: Document 04/07/19 10:30 MT (Rec: 04/07/19 12:49 MT [id number]) Cardio Equipment Recumbent Elliptical (Biodex) Duration (Minutes) 7 Resistance 8 Gait Training Gait Activity AD training Description pt trained with safe use and fitting for 2WW and 4WW Device Used 2WW and 4WW Level of Assistance CGA Manual Therapy Treatment Soft Tissue Mobilization Scar tissue Body Location lumbar scar tissue Mobilization Type Myofascial Release,Rolling, Sustained Pressure Intensity/Depth Moderate Body Position Sidelying PT-OP-R Modalities Start: 02/02/19 17:43 Freq: Status: Active Protocol: Document 04/07/19 10:30 MT (Rec: 04/07/19 12:49 MT [id number]) Hot Pack/Cold Pack Treatment Cold Pack Location lumbar Patient Position Sidelying Treatment Duration (minutes) 10 Patient Tolerance Good PT-OP-S Aquatic Treatment Start: 02/26/19 16:08 Freq: Status: Active Protocol: Document 04/05/19 10:15 LJ (Rec: 04/05/19 15:27 LJ [id number]) Aquatics Treatment Pool Entry/Exit Pool Entry/Exit Method Stairs Assistance Standby Assistance Water Walking sideways 2.0 Water Level Chest Level Walking Equipment Ankle Weight- 2.5# Level of Assistance Standby Assistance,Contact Guard Assistance,Minimal Assistance,Moderate Assistance ,Verbal Cues Comments HAdd HAbd opposite LEs-arms abd while LEs add stop/start/stabilize Water Level Chest Level Walking Equipment Ankle Weight- 2.5# Level of Assistance Standby Assistance,Contact Guard Assistance,Minimal Assistance,Verbal Cues Comments forward and sideways directional changes Water Level Chest Level Walking Equipment Ankle Weight- 2.5# Level of Assistance Standby Assistance,Contact Guard Assistance,Minimal Assistance,Verbal Cues Marching Water Level Chest Level Walking Equipment Ankle Weight- 2.5# Level of Assistance Standby Assistance,Contact Guard Assistance,Minimal Assistance,Verbal Cues Comments HAdd HAbd arms Backwards Water Level Chest Level Walking Equipment Ankle Weight- 2.5# Level of Assistance Standby Assistance,Minimal Assistance,Moderate Assistance ,Verbal Cues Comments BS arms Sideways Water Level Chest Level Walking Equipment Ankle Weight- 2.5# Level of Assistance Standby Assistance,Contact Guard Assistance Comments abd add arms simultaneous with LE action Forwards Water Level Chest Level Walking Equipment Ankle Weight- 2.5# Level of Assistance Standby Assistance,Verbal Cues Comments several LOB Lower Extremity Exercises heel raises Body Position Standing Equipment Ankle Weight- 2.5# Reps/Duration 10 Comments hh on wall step ups on boxes Details forward and sideways Water Level Waist Level Equipment [place] Float Reps/Duration 8 min Comments many LOBs; various size boxes squats on box Details muscle sequence activation- [id number] Water Level Chest Level Equipment Ankle Weight- 2.5# Reps/Duration 4 Comments hh on wall; good posture toe raises Body Position Standing Water Level Chest Level Equipment Ankle Weight- 2.5# Reps/Duration x12 Comments hh on wall Lower Extremity Stretches ER/IR bilateral Details at wall Body Position Standing Water Level Chest Level Reps/Duration 45x2 Comments IR manually assisted gastroc Details at wall Body Position Standing Water Level Chest Level Reps/Duration 45x2 hip flexors Details at wall Body Position Standing Water Level Chest Level Reps/Duration 45x2 Comments manual cueing HS, Quad Details at wall Body Position Standing Water Level Chest Level Equipment Small Noodle Reps/Duration 45x2 Spinal Exercises reciprocal gait practise Details stationary at wall Body Position Standing Water Level Waist Level Equipment Ankle Weight- 2.5# Reps/Duration 8 min Comments neuro re-ed for alternate arm- leg swing Balance weight shifting forward and backward; side to side Body Position Standing Water Level Chest Level Reps/Duration 4 min Comments forward-backward with difficulty [place] Activities [place] Activities Bicycle,Cross Country,Running Equipment lg belt, sm BBs Duration 8 min PT-OP-T Assessment and Plan Start: 02/02/19 17:43 Freq: Status: Active Protocol: Document 04/07/19 10:30 MT (Rec: 04/07/19 12:49 MT [id number]) Physical Therapy Assessment Goals gait Nursing Home Goal (LTG) Pt will be able to walk for 10 min without requiring a rest break. LTG Duration 05/06/19 mobility Short Term Goal (STG) Pt will be indep with log roll technique and report less difficulty with getting in and out of bed and rolling in bed . STG Duration 03/18/19 Nursing Home Goal (LTG) Pt will be able to get in and out of a chair without use of UE LTG Duration 05/06/19 strength Short Term Goal (STG) Pt will be indep with HEP and will be going to gym 2-3x/week . STG Duration 03/18/19 Nursing Home Goal (LTG) Pt will improve LE strength to at least 4+/5 in order to allow pt to return to typical activities and ADLs with greater ease. LTG Duration 05/06/19 fall risk Short Term Goal (STG) Pt will improve DE LA ROSA score to 35/56 to show dec fall risk with AD. STG Duration 03/18/19 Nursing Home Goal (LTG) Pt will improve DE LA ROSA score to 50/56 in order to show pt to be less liekly to fall in the community. LTG Duration 05/06/19 Assessment Summary Assessment Pt was very unsteady walking into the cliinc with the use of his SPC. Performed gait training on pt with use of 4WW and 2WW. Pt was much more steady and safe with 4WW. He says that he has a 4WW at home but doesn't use it, because it is bulky to maneuver around the house and difficult to travel with. He also says that he doesn't feel like it fits right and makes him hunch over. Pt was taught how to fit his 4WW and told to bring it in next time to assess his safety. Pt was open to the idea of switching to 4WW for everyday use. Pt's back symptoms were not aggravated with walking activities. Physical Therapy Plan Frequency and Duration Frequency of Treatment 2x/Week Duration of Treatment 3 months Plan of Care Start Date 02/03/19 Plan of Care End Date 05/06/18 Next Visit Focus/Plan Next Note Type Treatment Note Next Visit Plan begin progressing tolerance to standing balance exercises, assess pt 4WW and safe use, continue with core exercises in supine
--- NOTE | 2019-04-07 18:37 | PT.OTN ---
Current Diagnoses Polyneuropathy, unspecified (04/07/19) Spinal stenosis, lumbar region without neurogenic claudication (04/07/19) Difficulty in walking, not elsewhere classified (04/07/19) Other abnormalities of gait and mobility (04/07/19) Weakness (04/07/19) Physical Therapy Treatment Note PT-OP-A Visit Information Start: 02/02/19 17:43 Freq: Status: Active Protocol: Document 04/07/19 10:30 MT (Rec: 04/07/19 12:49 MT [id number]) Out-Patient Physical Therapy Visit Information Visit Information Visit Type Treatment Note Visit Start Time 10:30 Visit Stop Time 11:23 Total Visit Minutes 53 Visit Number 17 Number of POLICE SERGEANT PRECINCT Visits 0 PT-OP-B Current Condition Start: 02/02/19 17:43 Freq: Status: Active Protocol: Document 02/03/19 11:22 [facility] (Rec: 02/03/19 12:13 [facility] [id number]) Current Condition History of Current Condition Onset Date >30 year back pain Current Complaints back pain & dec balance History of Current Condition Pt reports he wants to walk around without falling. Pt reports he has 2-3 per month and typically gets momentum fwd and cannot control that so falls fwd. No difference based on terrain. Pt reports history of back pain for 30 years with 2 fusion surgies and a laminectomy the 3rd surgery. Pt has a pain stimulator in his back which helped at first but as he got used it, its been less effective. Pt reprots it was done about 6 years ago. Pt reports he goes 1x.week to the [facility], he gets in the pool. Pt reports PT has been helpful in the past. Pt reports balance has been getting worse of the past year or 2 especially recently. Prior Treatments and Tests multiple bouts of PT, mult shots, mult MRIs Treatment Goals Patient/Caregiver Goals Dec falls, Be able to walk further distances (to car with ease, down driveway), get in and out of chairs easier, get in and out of bed and roll easier PT-OP-C Subjective Start: 02/02/19 17:43 Freq: Status: Active Protocol: Document 04/07/19 10:30 MT (Rec: 04/07/19 12:49 MT [id number]) OP-PT Subjective Patient Comments Patient Comments Pt reported that he had his CT scan yesterday but results are not in yet. He reported that his back felt pretty good today, but he is still unsteady with his gait. He says he trips over his cane a lot. PT-OP-D Balance Start: 02/02/19 17:43 Freq: Status: Active Protocol: Document 02/03/19 11:22 [facility] (Rec: 02/03/19 12:13 [facility] [id number]) Balance Tests De La Rosa Balance Test De [place] Rosa Balance Test Score 26 [place] Impairment Rating 40 to 59% Impaired (Score 23- 33) PT-OP-F Manual Assessment Start: 02/02/19 17:43 Freq: Status: Active Protocol: Document 02/03/19 11:22 [facility] (Rec: 02/03/19 12:13 [facility] [id number]) Manual Assessments Soft Tissue Assessment Soft Tissue Mobility Assessment significant scar tissue tightness, ES B & QL B tightness PT-OP-G Mobility & Gait Start: 02/02/19 17:43 Freq: Status: Active Protocol: Document 02/03/19 11:22 [facility] (Rec: 02/03/19 12:13 [facility] [id number]) OP Gait Assessment Comments Gait Comments Pt amb with SPC with B lat leaning & fwd leaning. Dec overall push off PT-OP-M Strength Start: 02/02/19 17:43 Freq: Status: Active Protocol: Document 02/03/19 11:22 [facility] (Rec: 02/03/19 12:13 [facility] [id number]) Hip Strength Hip Manual Muscle Testing Left Flexion (L2) 4- Good- Extension (S1) 2+ Poor+ Abduction 3+ Fair+ External Rotation 3+ Fair+ Internal Rotation 3+ Fair+ Right Flexion (L2) 4 Good Extension (S1) 3 Fair Abduction 3+ Fair+ External Rotation 4- Good- Internal Rotation 4- Good- Knee Strength Knee Manual Muscle Testing Left Flexion (S2) 4 Good Extension (L3) 4+ Good+ Right Flexion (S2) 4 Good Extension (L3) 4 Good Ankle/Foot Strength Ankle and Foot Manual Muscle Testing Left Dorsiflexion (L4) 5 Normal Plantarflexion (S1) 5 Normal Right Dorsiflexion (L4) 4+ Good+ Plantarflexion (S1) 4+ Good+ Comments seated PF testing PT-OP-Q Treatments Start: 02/02/19 17:43 Freq: Status: Active Protocol: Document 04/07/19 10:30 MT (Rec: 04/07/19 12:49 MT [id number]) Cardio Equipment Recumbent Elliptical (Biodex) Duration (Minutes) 7 Resistance 8 Gait Training Gait Activity AD training Description pt trained with safe use and fitting for 2WW and 4WW Device Used 2WW and 4WW Level of Assistance CGA Manual Therapy Treatment Soft Tissue Mobilization Scar tissue Body Location lumbar scar tissue Mobilization Type Myofascial Release,Rolling, Sustained Pressure Intensity/Depth Moderate Body Position Sidelying PT-OP-R Modalities Start: 02/02/19 17:43 Freq: Status: Active Protocol: Document 04/07/19 10:30 MT (Rec: 04/07/19 12:49 MT [id number]) Hot Pack/Cold Pack Treatment Cold Pack Location lumbar Patient Position Sidelying Treatment Duration (minutes) 10 Patient Tolerance Good PT-OP-S Aquatic Treatment Start: 02/26/19 16:08 Freq: Status: Active Protocol: Document 04/05/19 10:15 LJ (Rec: 04/05/19 15:27 LJ [id number]) Aquatics Treatment Pool Entry/Exit Pool Entry/Exit Method Stairs Assistance Standby Assistance Water Walking sideways 2.0 Water Level Chest Level Walking Equipment Ankle Weight- 2.5# Level of Assistance Standby Assistance,Contact Guard Assistance,Minimal Assistance,Moderate Assistance ,Verbal Cues Comments HAdd HAbd opposite LEs-arms abd while LEs add stop/start/stabilize Water Level Chest Level Walking Equipment Ankle Weight- 2.5# Level of Assistance Standby Assistance,Contact Guard Assistance,Minimal Assistance,Verbal Cues Comments forward and sideways directional changes Water Level Chest Level Walking Equipment Ankle Weight- 2.5# Level of Assistance Standby Assistance,Contact Guard Assistance,Minimal Assistance,Verbal Cues Marching Water Level Chest Level Walking Equipment Ankle Weight- 2.5# Level of Assistance Standby Assistance,Contact Guard Assistance,Minimal Assistance,Verbal Cues Comments HAdd HAbd arms Backwards Water Level Chest Level Walking Equipment Ankle Weight- 2.5# Level of Assistance Standby Assistance,Minimal Assistance,Moderate Assistance ,Verbal Cues Comments BS arms Sideways Water Level Chest Level Walking Equipment Ankle Weight- 2.5# Level of Assistance Standby Assistance,Contact Guard Assistance Comments abd add arms simultaneous with LE action Forwards Water Level Chest Level Walking Equipment Ankle Weight- 2.5# Level of Assistance Standby Assistance,Verbal Cues Comments several LOB Lower Extremity Exercises heel raises Body Position Standing Equipment Ankle Weight- 2.5# Reps/Duration 10 Comments hh on wall step ups on boxes Details forward and sideways Water Level Waist Level Equipment [place] Float Reps/Duration 8 min Comments many LOBs; various size boxes squats on box Details muscle sequence activation- [id number] Water Level Chest Level Equipment Ankle Weight- 2.5# Reps/Duration 4 Comments hh on wall; good posture toe raises Body Position Standing Water Level Chest Level Equipment Ankle Weight- 2.5# Reps/Duration x12 Comments hh on wall Lower Extremity Stretches ER/IR bilateral Details at wall Body Position Standing Water Level Chest Level Reps/Duration 45x2 Comments IR manually assisted gastroc Details at wall Body Position Standing Water Level Chest Level Reps/Duration 45x2 hip flexors Details at wall Body Position Standing Water Level Chest Level Reps/Duration 45x2 Comments manual cueing HS, Quad Details at wall Body Position Standing Water Level Chest Level Equipment Small Noodle Reps/Duration 45x2 Spinal Exercises reciprocal gait practise Details stationary at wall Body Position Standing Water Level Waist Level Equipment Ankle Weight- 2.5# Reps/Duration 8 min Comments neuro re-ed for alternate arm- leg swing Balance weight shifting forward and backward; side to side Body Position Standing Water Level Chest Level Reps/Duration 4 min Comments forward-backward with difficulty [place] Activities [place] Activities Bicycle,Cross Country,Running Equipment lg belt, sm BBs Duration 8 min PT-OP-T Assessment and Plan Start: 02/02/19 17:43 Freq: Status: Active Protocol: Document 04/07/19 10:30 MT (Rec: 04/07/19 12:49 MT [id number]) Physical Therapy Assessment Goals gait Senior Living Goal (LTG) Pt will be able to walk for 10 min without requiring a rest break. LTG Duration 05/06/19 mobility Short Term Goal (STG) Pt will be indep with log roll technique and report less difficulty with getting in and out of bed and rolling in bed . STG Duration 03/18/19 Senior Living Goal (LTG) Pt will be able to get in and out of a chair without use of UE LTG Duration 05/06/19 strength Short Term Goal (STG) Pt will be indep with HEP and will be going to gym 2-3x/week . STG Duration 03/18/19 Senior Living Goal (LTG) Pt will improve LE strength to at least 4+/5 in order to allow pt to return to typical activities and ADLs with greater ease. LTG Duration 05/06/19 fall risk Short Term Goal (STG) Pt will improve DE LA ROSA score to 35/56 to show dec fall risk with AD. STG Duration 03/18/19 Senior Living Goal (LTG) Pt will improve DE LA ROSA score to 50/56 in order to show pt to be less liekly to fall in the community. LTG Duration 05/06/19 Assessment Summary Assessment Pt was very unsteady walking into the cliinc with the use of his SPC. Performed gait training on pt with use of 4WW and 2WW. Pt was much more steady and safe with 4WW. He says that he has a 4WW at home but doesn't use it, because it is bulky to maneuver around the house and difficult to travel with. He also says that he doesn't feel like it fits right and makes him hunch over. Pt was taught how to fit his 4WW and told to bring it in next time to assess his safety. Pt was open to the idea of switching to 4WW for everyday use. Pt's back symptoms were not aggravated with walking activities. Physical Therapy Plan Frequency and Duration Frequency of Treatment 2x/Week Duration of Treatment 3 months Plan of Care Start Date 02/03/19 Plan of Care End Date 05/06/18 Next Visit Focus/Plan Next Note Type Treatment Note Next Visit Plan begin progressing tolerance to standing balance exercises, assess pt 4WW and safe use, continue with core exercises in supine
--- NOTE | 2019-04-12 16:04 | PT.OTN ---
Current Diagnoses Polyneuropathy, unspecified (04/12/19) Spinal stenosis, lumbar region without neurogenic claudication (04/12/19) Difficulty in walking, not elsewhere classified (04/12/19) Other abnormalities of gait and mobility (04/12/19) Weakness (04/12/19) Physical Therapy Treatment Note PT-OP-A Visit Information Start: 02/02/19 17:43 Freq: Status: Active Protocol: Document 04/12/19 10:15 ALFREDITO (Rec: 04/12/19 16:04 LJ [id number]) Out-Patient Physical Therapy Visit Information Visit Information Visit Type Treatment Note Visit Start Time 10:15 Visit Stop Time 11:00 Total Visit Minutes 45 Visit Number 18 Number of MARKET RESEARCHER Visits 1 PT-OP-B Current Condition Start: 02/02/19 17:43 Freq: Status: Active Protocol: Document 02/03/19 11:22 [facility] (Rec: 02/03/19 12:13 [facility] [id number]) Current Condition History of Current Condition Onset Date >30 year back pain Current Complaints back pain & dec balance History of Current Condition Pt reports he wants to walk around without falling. Pt reports he has 2-3 per month and typically gets momentum fwd and cannot control that so falls fwd. No difference based on terrain. Pt reports history of back pain for 30 years with 2 fusion surgies and a laminectomy the 3rd surgery. Pt has a pain stimulator in his back which helped at first but as he got used it, its been less effective. Pt reprots it was done about 6 years ago. Pt reports he goes 1x.week to the [facility], he gets in the pool. Pt reports PT has been helpful in the past. Pt reports balance has been getting worse of the past year or 2 especially recently. Prior Treatments and Tests multiple bouts of PT, mult shots, mult MRIs Treatment Goals Patient/Caregiver Goals Dec falls, Be able to walk further distances (to car with ease, down driveway), get in and out of chairs easier, get in and out of bed and roll easier PT-OP-C Subjective Start: 02/02/19 17:43 Freq: Status: Active Protocol: Document 04/12/19 10:15 [facility] (Rec: 04/12/19 16:04 AL[facility] [id number]) OP-PT Subjective Patient Comments Patient Comments Pt states he did not have any falls or near falls this weekend. He has not gotten results from MRI yet. Pt arrived early and entered pool independently PT-OP-D Balance Start: 02/02/19 17:43 Freq: Status: Active Protocol: Document 02/03/19 11:22 [facility] (Rec: 02/03/19 12:13 [facility] [id number]) Balance Tests De La Rosa Balance Test De La Rosa Balance Test Score 26 De La Rosa Impairment Rating 40 to 59% Impaired (Score 23- 33) PT-OP-F Manual Assessment Start: 02/02/19 17:43 Freq: Status: Active Protocol: Document 02/03/19 11:22 [facility] (Rec: 02/03/19 12:13 [facility] [id number]) Manual Assessments Soft Tissue Assessment Soft Tissue Mobility Assessment significant scar tissue tightness, ES B & QL B tightness PT-OP-G Mobility & Gait Start: 02/02/19 17:43 Freq: Status: Active Protocol: Document 02/03/19 11:22 [facility] (Rec: 02/03/19 12:13 [facility] [id number]) OP Gait Assessment Comments Gait Comments Pt amb with SPC with B lat leaning & fwd leaning. Dec overall push off PT-OP-M Strength Start: 02/02/19 17:43 Freq: Status: Active Protocol: Document 02/03/19 11:22 [facility] (Rec: 02/03/19 12:13 [facility] [id number]) Hip Strength Hip Manual Muscle Testing Left Flexion (L2) 4- Good- Extension (S1) 2+ Poor+ Abduction 3+ Fair+ External Rotation 3+ Fair+ Internal Rotation 3+ Fair+ Right Flexion (L2) 4 Good Extension (S1) 3 Fair Abduction 3+ Fair+ External Rotation 4- Good- Internal Rotation 4- Good- Knee Strength Knee Manual Muscle Testing Left Flexion (S2) 4 Good Extension (L3) 4+ Good+ Right Flexion (S2) 4 Good Extension (L3) 4 Good Ankle/Foot Strength Ankle and Foot Manual Muscle Testing Left Dorsiflexion (L4) 5 Normal Plantarflexion (S1) 5 Normal Right Dorsiflexion (L4) 4+ Good+ Plantarflexion (S1) 4+ Good+ Comments seated PF testing PT-OP-Q Treatments Start: 02/02/19 17:43 Freq: Status: Active Protocol: Document 04/07/19 10:30 MT (Rec: 04/07/19 12:49 MT [id number]) Cardio Equipment Recumbent Elliptical (Biodex) Duration (Minutes) 7 Resistance 8 Gait Training Gait Activity AD training Description pt trained with safe use and fitting for 2WW and 4WW Device Used 2WW and 4WW Level of Assistance CGA Manual Therapy Treatment Soft Tissue Mobilization Scar tissue Body Location lumbar scar tissue Mobilization Type Myofascial Release,Rolling, Sustained Pressure Intensity/Depth Moderate Body Position Sidelying PT-OP-R Modalities Start: 02/02/19 17:43 Freq: Status: Active Protocol: Document 04/07/19 10:30 MT (Rec: 04/07/19 12:49 MT [id number]) Hot Pack/Cold Pack Treatment Cold Pack Location lumbar Patient Position Sidelying Treatment Duration (minutes) 10 Patient Tolerance Good PT-OP-S Aquatic Treatment Start: 02/26/19 16:08 Freq: Status: Active Protocol: Document 04/12/19 10:15 LJ (Rec: 04/12/19 16:04 LJ [id number]) Aquatics Treatment Pool Entry/Exit Pool Entry/Exit Method Stairs Assistance Independent Water Walking stop/start/stabilize Water Level Chest Level Walking Equipment Ankle Weight- 2.5# Level of Assistance Standby Assistance,Contact Guard Assistance,Minimal Assistance,Verbal Cues Comments forward and sideways directional changes Water Level Chest Level Walking Equipment Ankle Weight- 2.5# Level of Assistance Standby Assistance,Contact Guard Assistance,Minimal Assistance,Verbal Cues Marching Water Level Chest Level Walking Equipment Ankle Weight- 2.5# Level of Assistance Standby Assistance,Contact Guard Assistance,Minimal Assistance,Verbal Cues Comments HAdd HAbd arms Backwards Water Level Chest Level Walking Equipment Ankle Weight- 2.5# Level of Assistance Standby Assistance,Minimal Assistance,Moderate Assistance ,Verbal Cues Comments BS arms Sideways Water Level Chest Level Walking Equipment Ankle Weight- 2.5# Level of Assistance Standby Assistance,Contact Guard Assistance Comments abd add arms simultaneous with LE action Forwards Water Level Chest Level Walking Equipment Ankle Weight- 2.5# Level of Assistance Standby Assistance,Verbal Cues Comments several LOB Lower Extremity Exercises hip figure 8 Details at wall Body Position Standing Water Level Chest Level Reps/Duration 8 bilat Comments pt requires manual assist step ups on boxes Details forward and sideways Water Level Waist Level Equipment [place] Float Reps/Duration 8 min Comments many LOBs; various size boxes hip ab/ad Body Position Standing Water Level Chest Level Reps/Duration 2x10 Comments hh on wall hip flex/ext Body Position Standing Water Level Chest Level Reps/Duration 2x10 Comments hh on wall squats on box Details muscle sequence activation- [id number] Water Level Chest Level Equipment Ankle Weight- 2.5# Reps/Duration 4 Comments hh on wall; good posture Lower Extremity Stretches ER/IR bilateral Details at wall Body Position Standing Water Level Chest Level Reps/Duration 45x2 Comments IR manually assisted gastroc Details at wall Body Position Standing Water Level Chest Level Reps/Duration 45x2 hip flexors Details at wall Body Position Standing Water Level Chest Level Reps/Duration 45x2 Comments manual cueing HS, Quad Details at wall Body Position Standing Water Level Chest Level Equipment Small Noodle Reps/Duration 45x2 Upper Extremity Exercises flex/ext, ab,ad Body Position Standing Water Level Chest Level Reps/Duration 10 ea Comments for core stabilization Spinal Exercises spinal stabilization with perturbances Body Position Standing Water Level Chest Level Reps/Duration 3 min Balance weight shifting forward and backward; side to side Body Position Standing Water Level Chest Level Reps/Duration 4 min Comments forward-backward with difficulty PT-OP-T Assessment and Plan Start: 02/02/19 17:43 Freq: Status: Active Protocol: Document 04/12/19 10:15 [facility] (Rec: 04/12/19 16:04 [facility] [id number]) Physical Therapy Assessment Rehab Potential Rehabilitation Potential Good Evaluation Complexity Number of Personal Factors/Comorbidities 3 or More Number of Body Systems Impaired 4 or More Clinical Presentation at Evaluation Evolving Impairments Impairments Activity Tolerance,Balance, Coordination,Functional Activities,Functional Mobility ,Gait,Pain,Posture,ROM,Soft Tissue Mobility,Strength, Transfers Other Concerns Fall Risk high particularly at pool; must use FWW after tx session returning to aileen Goals gait Bead Forming Machine Set Up Operator Goal (LTG) Pt will be able to walk for 10 min without requiring a rest break. LTG Duration 05/06/19 mobility Short Term Goal (STG) Pt will be indep with log roll technique and report less difficulty with getting in and out of bed and rolling in bed . STG Duration 03/18/19 Bead Forming Machine Set Up Operator Goal (LTG) Pt will be able to get in and out of a chair without use of UE LTG Duration 05/06/19 strength Short Term Goal (STG) Pt will be indep with HEP and will be going to gym 2-3x/week . STG Duration 03/18/19 Bead Forming Machine Set Up Operator Goal (LTG) Pt will improve LE strength to at least 4+/5 in order to allow pt to return to typical activities and ADLs with greater ease. LTG Duration 05/06/19 fall risk Short Term Goal (STG) Pt will improve DE LA ROSA score to 35/56 to show dec fall risk with AD. STG Duration 03/18/19 Bead Forming Machine Set Up Operator Goal (LTG) Pt will improve DE LA ROSA score to 50/56 in order to show pt to be less liekly to fall in the community. LTG Duration 05/06/19 Assessment Summary Assessment Pt continues to be challenged with walking and standing exercises in pool. Coordination and NM control are continuing to decline and left side weakness is prominent. Pt experiencing increased LOB and ability to follow directions. Physical Therapy Plan Frequency and Duration Frequency of Treatment 2x/Week Duration of Treatment 3 months Plan of Care Start Date 02/03/19 Plan of Care End Date 05/06/18 Next Visit Focus/Plan Next Note Type Treatment Note Next Visit Plan Begin progressing tolerance to standing balance exercises and directional changes w/o LOB. Increase intensity of LE exercises as tolerated.
--- NOTE | 2019-04-14 18:39 | PT.OTN ---
Current Diagnoses Polyneuropathy, unspecified (04/14/19) Spinal stenosis, lumbar region without neurogenic claudication (04/14/19) Difficulty in walking, not elsewhere classified (04/14/19) Other abnormalities of gait and mobility (04/14/19) Weakness (04/14/19) Physical Therapy Treatment Note PT-OP-A Visit Information Start: 02/02/19 17:43 Freq: Status: Active Protocol: Document 04/14/19 10:32 MT (Rec: 04/14/19 12:54 MT [id number]) Out-Patient Physical Therapy Visit Information Visit Information Visit Type Treatment Note Visit Start Time 10:32 Visit Stop Time 11:25 Total Visit Minutes 53 Visit Number 19 Number of GIG TENDER Visits 0 PT-OP-B Current Condition Start: 02/02/19 17:43 Freq: Status: Active Protocol: Document 02/03/19 11:22 [facility] (Rec: 02/03/19 12:13 [facility] [id number]) Current Condition History of Current Condition Onset Date >30 year back pain Current Complaints back pain & dec balance History of Current Condition Pt reports he wants to walk around without falling. Pt reports he has 2-3 per month and typically gets momentum fwd and cannot control that so falls fwd. No difference based on terrain. Pt reports history of back pain for 30 years with 2 fusion surgies and a laminectomy the 3rd surgery. Pt has a pain stimulator in his back which helped at first but as he got used it, its been less effective. Pt reprots it was done about 6 years ago. Pt reports he goes 1x.week to the [facility], he gets in the pool. Pt reports PT has been helpful in the past. Pt reports balance has been getting worse of the past year or 2 especially recently. Prior Treatments and Tests multiple bouts of PT, mult shots, mult MRIs Treatment Goals Patient/Caregiver Goals Dec falls, Be able to walk further distances (to car with ease, down driveway), get in and out of chairs easier, get in and out of bed and roll easier PT-OP-C Subjective Start: 02/02/19 17:43 Freq: Status: Active Protocol: Document 04/14/19 10:32 MT (Rec: 04/14/19 12:54 MT [id number]) OP-PT Subjective Patient Comments Patient Comments Pt states that his balance and dizziness have not been very good this past week. He brought in the walker for PT to fit him to. he hears back from neurologist tomorrow. Pt is getting foot surgery later today to get a corn removed. PT-OP-D Balance Start: 02/02/19 17:43 Freq: Status: Active Protocol: Document 02/03/19 11:22 [facility] (Rec: 02/03/19 12:13 [facility] [id number]) Balance Tests De La Rosa Balance Test De La Rosa Balance Test Score 26 De La Rosa Impairment Rating 40 to 59% Impaired (Score 23- 33) PT-OP-F Manual Assessment Start: 02/02/19 17:43 Freq: Status: Active Protocol: Document 02/03/19 11:22 [facility] (Rec: 02/03/19 12:13 [facility] [id number]) Manual Assessments Soft Tissue Assessment Soft Tissue Mobility Assessment significant scar tissue tightness, ES B & QL B tightness PT-OP-G Mobility & Gait Start: 02/02/19 17:43 Freq: Status: Active Protocol: Document 02/03/19 11:22 [facility] (Rec: 02/03/19 12:13 [facility] [id number]) OP Gait Assessment Comments Gait Comments Pt amb with SPC with B lat leaning & fwd leaning. Dec overall push off PT-OP-M Strength Start: 02/02/19 17:43 Freq: Status: Active Protocol: Document 02/03/19 11:22 [facility] (Rec: 02/03/19 12:13 [facility] [id number]) Hip Strength Hip Manual Muscle Testing Left Flexion (L2) 4- Good- Extension (S1) 2+ Poor+ Abduction 3+ Fair+ External Rotation 3+ Fair+ Internal Rotation 3+ Fair+ Right Flexion (L2) 4 Good Extension (S1) 3 Fair Abduction 3+ Fair+ External Rotation 4- Good- Internal Rotation 4- Good- Knee Strength Knee Manual Muscle Testing Left Flexion (S2) 4 Good Extension (L3) 4+ Good+ Right Flexion (S2) 4 Good Extension (L3) 4 Good Ankle/Foot Strength Ankle and Foot Manual Muscle Testing Left Dorsiflexion (L4) 5 Normal Plantarflexion (S1) 5 Normal Right Dorsiflexion (L4) 4+ Good+ Plantarflexion (S1) 4+ Good+ Comments seated PF testing PT-OP-Q Treatments Start: 02/02/19 17:43 Freq: Status: Active Protocol: Document 04/14/19 10:32 MT (Rec: 04/14/19 12:54 MT [id number]) Cardio Equipment Recumbent Stepper (Sci-Fit) Duration (Minutes) 10 Resistance 6 Gym Equipment Shuttle Recovery Bilateral Squats Details bilateral squats Resistance 75 Shuttle Recovery Platform Stable Therapeutic Exercises Supine Exercises stretch Supine Exercise Name stretch into hip flexion Side bilateral Equipment Used towel to hold leg under knee Reps/Minutes 30 seconds B SLR Side bilateral Reps/Minutes 20B LTR Side bilateral Reps/Minutes 15B bridge Side bilateral Reps/Minutes 20B Standing Exercises 4 way hip Standing Exercise Name abd/ext, flexion marches Side bilateral Reps/Minutes 20each Comments within walker Gait Training Gait Activity AD training Description pt fitted for their personal walker and assessed safety and gait Device Used 4WW Level of Assistance SBA Comments 1.pt's walker needed to be raised to appropriate height for pt. 2.pt's wheel was adjusted to be outside of the walker 3.pt's handles are on opposite sides of the walker, but were left, d/t pt saying he liked them that way. PT-OP-R Modalities Start: 02/02/19 17:43 Freq: Status: Active Protocol: Document 04/14/19 10:32 MT (Rec: 04/14/19 12:54 MT [id number]) Hot Pack/Cold Pack Treatment Cold Pack Location lumbar Patient Position Sidelying Treatment Duration (minutes) 10 Patient Tolerance Good PT-OP-S Aquatic Treatment Start: 02/26/19 16:08 Freq: Status: Active Protocol: Document 04/12/19 10:15 LJ (Rec: 04/12/19 16:04 LJ [id number]) Aquatics Treatment Pool Entry/Exit Pool Entry/Exit Method Stairs Assistance Independent Water Walking stop/start/stabilize Water Level Chest Level Walking Equipment Ankle Weight- 2.5# Level of Assistance Standby Assistance,Contact Guard Assistance,Minimal Assistance,Verbal Cues Comments forward and sideways directional changes Water Level Chest Level Walking Equipment Ankle Weight- 2.5# Level of Assistance Standby Assistance,Contact Guard Assistance,Minimal Assistance,Verbal Cues Marching Water Level Chest Level Walking Equipment Ankle Weight- 2.5# Level of Assistance Standby Assistance,Contact Guard Assistance,Minimal Assistance,Verbal Cues Comments HAdd HAbd arms Backwards Water Level Chest Level Walking Equipment Ankle Weight- 2.5# Level of Assistance Standby Assistance,Minimal Assistance,Moderate Assistance ,Verbal Cues Comments BS arms Sideways Water Level Chest Level Walking Equipment Ankle Weight- 2.5# Level of Assistance Standby Assistance,Contact Guard Assistance Comments abd add arms simultaneous with LE action Forwards Water Level Chest Level Walking Equipment Ankle Weight- 2.5# Level of Assistance Standby Assistance,Verbal Cues Comments several LOB Lower Extremity Exercises hip figure 8 Details at wall Body Position Standing Water Level Chest Level Reps/Duration 8 bilat Comments pt requires manual assist step ups on boxes Details forward and sideways Water Level Waist Level Equipment [place] Float Reps/Duration 8 min Comments many LOBs; various size boxes hip ab/ad Body Position Standing Water Level Chest Level Reps/Duration 2x10 Comments hh on wall hip flex/ext Body Position Standing Water Level Chest Level Reps/Duration 2x10 Comments hh on wall squats on box Details muscle sequence activation- [id number] Water Level Chest Level Equipment Ankle Weight- 2.5# Reps/Duration 4 Comments hh on wall; good posture Lower Extremity Stretches ER/IR bilateral Details at wall Body Position Standing Water Level Chest Level Reps/Duration 45x2 Comments IR manually assisted gastroc Details at wall Body Position Standing Water Level Chest Level Reps/Duration 45x2 hip flexors Details at wall Body Position Standing Water Level Chest Level Reps/Duration 45x2 Comments manual cueing HS, Quad Details at wall Body Position Standing Water Level Chest Level Equipment Small Noodle Reps/Duration 45x2 Upper Extremity Exercises flex/ext, ab,ad Body Position Standing Water Level Chest Level Reps/Duration 10 ea Comments for core stabilization Spinal Exercises spinal stabilization with perturbances Body Position Standing Water Level Chest Level Reps/Duration 3 min Balance weight shifting forward and backward; side to side Body Position Standing Water Level Chest Level Reps/Duration 4 min Comments forward-backward with difficulty PT-OP-T Assessment and Plan Start: 02/02/19 17:43 Freq: Status: Active Protocol: Document 04/14/19 10:32 MT (Rec: 04/14/19 12:54 MT [id number]) Physical Therapy Assessment Goals gait Director Client Goal (LTG) Pt will be able to walk for 10 min without requiring a rest break. LTG Duration 05/06/19 mobility Short Term Goal (STG) Pt will be indep with log roll technique and report less difficulty with getting in and out of bed and rolling in bed . STG Duration 03/18/19 Care Home Goal (LTG) Pt will be able to get in and out of a chair without use of UE LTG Duration 05/06/19 strength Short Term Goal (STG) Pt will be indep with HEP and will be going to gym 2-3x/week . STG Duration 03/18/19 Care Home Goal (LTG) Pt will improve LE strength to at least 4+/5 in order to allow pt to return to typical activities and ADLs with greater ease. LTG Duration 05/06/19 fall risk Short Term Goal (STG) Pt will improve DE LA ROSA score to 35/56 to show dec fall risk with AD. STG Duration 03/18/19 Care Home Goal (LTG) Pt will improve DE LA ROSA score to 50/56 in order to show pt to be less liekly to fall in the community. LTG Duration 05/06/19 Assessment Summary Assessment Pt was fitted for the walker and was able to maneuver well without any LOB events. Pt does stagger upon initial stance from sitting at times. Pt was able to tolerate some standing hip exercises within the walker today without complaints of exacerbation of back pain. he will be getting surgery on his foot, so discontinued pool therapy until the surgical site is closed. Physical Therapy Plan Frequency and Duration Frequency of Treatment 2x/Week Duration of Treatment 3 months Plan of Care Start Date 02/03/19 Plan of Care End Date 05/06/18 Next Visit Focus/Plan Next Note Type Treatment Note Next Visit Plan Begin progressing tolerance to standing balance exercises and directional changes w/o LOB. Increase intensity of LE exercises as tolerated. Ensure closure of surgical incision before continuing with pool therapy.
--- NOTE | 2019-05-24 19:12 | PT.OTN ---
Current Diagnoses Polyneuropathy, unspecified (05/24/19) Spinal stenosis, lumbar region without neurogenic claudication (05/24/19) Difficulty in walking, not elsewhere classified (05/24/19) Other abnormalities of gait and mobility (05/24/19) Weakness (05/24/19) Physical Therapy Treatment Note PT-OP-A Visit Information Start: 02/02/19 17:43 Freq: Status: Active Protocol: Document 05/24/19 08:25 [facility] (Rec: 05/24/19 19:11 [facility] [id number]) Out-Patient Physical Therapy Visit Information Visit Information Visit Type Treatment Note Visit Note 05/07 Visit Start Time 08:17 Visit Stop Time 09:11 Total Visit Minutes 54 Visit Number 20 Number of PARASITOLOGY TEACHER Visits 0 PT-OP-B Current Condition Start: 02/02/19 17:43 Freq: Status: Active Protocol: Document 02/03/19 11:22 [facility] (Rec: 02/03/19 12:13 [facility] [id number]) Current Condition History of Current Condition Onset Date >30 year back pain Current Complaints back pain & dec balance History of Current Condition Pt reports he wants to walk around without falling. Pt reports he has 2-3 per month and typically gets momentum fwd and cannot control that so falls fwd. No difference based on terrain. Pt reports history of back pain for 30 years with 2 fusion surgies and a laminectomy the 3rd surgery. Pt has a pain stimulator in his back which helped at first but as he got used it, its been less effective. Pt reprots it was done about 6 years ago. Pt reports he goes 1x.week to the [facility], he gets in the pool. Pt reports PT has been helpful in the past. Pt reports balance has been getting worse of the past year or 2 especially recently. Prior Treatments and Tests multiple bouts of PT, mult shots, mult MRIs Treatment Goals Patient/Caregiver Goals Dec falls, Be able to walk further distances (to car with ease, down driveway), get in and out of chairs easier, get in and out of bed and roll easier PT-OP-C Subjective Start: 02/02/19 17:43 Freq: Status: Active Protocol: Document 05/24/19 08:25 [facility] (Rec: 05/24/19 19:11 [facility] [id number]) OP-PT Subjective Patient Comments Patient Comments Pt reports he has 3 falls recently. He had a corn surgery which he said is heeling well and has been back to that MD 2x since surgery in early Apr. Pt reports he is seeing seeing neurologist on Jun 01. PT-OP-D Balance Start: 02/02/19 17:43 Freq: Status: Active Protocol: Document 05/24/19 08:25 [facility] (Rec: 05/24/19 19:11 [facility] [id number]) Balance Tests De La Rosa Balance Test De La Rosa Balance Test Score 32 PT-OP-F Manual Assessment Start: 02/02/19 17:43 Freq: Status: Active Protocol: Document 02/03/19 11:22 [facility] (Rec: 02/03/19 12:13 [facility] [id number]) Manual Assessments Soft Tissue Assessment Soft Tissue Mobility Assessment significant scar tissue tightness, ES B & QL B tightness PT-OP-G Mobility & Gait Start: 02/02/19 17:43 Freq: Status: Active Protocol: Document 02/03/19 11:22 [facility] (Rec: 02/03/19 12:13 [facility] [id number]) OP Gait Assessment Comments Gait Comments Pt amb with SPC with B lat leaning & fwd leaning. Dec overall push off PT-OP-M Strength Start: 02/02/19 17:43 Freq: Status: Active Protocol: Document 05/24/19 08:25 [facility] (Rec: 05/24/19 19:11 [facility] [id number]) Hip Strength Hip Manual Muscle Testing Left Flexion (L2) 4- Good- Extension (S1) 3+ Fair+ Abduction 3+ Fair+ External Rotation 4- Good- Internal Rotation 4- Good- Right Flexion (L2) 4 Good Extension (S1) 3 Fair Abduction 4 Good External Rotation 4+ Good+ Internal Rotation 4 Good Knee Strength Knee Manual Muscle Testing Left Flexion (S2) 4+ Good+ Extension (L3) 4+ Good+ Right Flexion (S2) 4+ Good+ Extension (L3) 4 Good Ankle/Foot Strength Ankle and Foot Manual Muscle Testing Left Dorsiflexion (L4) 5 Normal Plantarflexion (S1) 4 Good Right Dorsiflexion (L4) 5 Normal Plantarflexion (S1) 4 Good Comments seated PF testing PT-OP-Q Treatments Start: 02/02/19 17:43 Freq: Status: Active Protocol: Document 05/24/19 08:25 [facility] (Rec: 05/24/19 19:11 [facility] [id number]) Cardio Equipment Recumbent Elliptical (Biodex) Duration (Minutes) 7 Resistance 4 Therapeutic Exercises Supine Exercises stretch Supine Exercise Name figure 4 Side bilateral Reps/Minutes 30 sec bridge Side bilateral Reps/Minutes 20 Self-Care/Home Management Treatment Education Other Education set up walker apporpirate height, appropriate use of walker (staying close & keeping it with him all places ) edu re: using tightener and moving his body vs trying to lean & reach over. PT-OP-R Modalities Start: 02/02/19 17:43 Freq: Status: Active Protocol: Document 05/24/19 08:25 [facility] (Rec: 05/24/19 19:12 [facility] [id number]) Hot Pack/Cold Pack Treatment Cold Pack Location lumbar Patient Position Sidelying Treatment Duration (minutes) 10 Patient Tolerance Good PT-OP-S Aquatic Treatment Start: 02/26/19 16:08 Freq: Status: Active Protocol: Document 04/12/19 10:15 [facility] (Rec: 04/12/19 16:04 [id number]) Aquatics Treatment Pool Entry/Exit Pool Entry/Exit Method Stairs Assistance Independent Water Walking stop/start/stabilize Water Level Chest Level Walking Equipment Ankle Weight- 2.5# Level of Assistance Standby Assistance,Contact Guard Assistance,Minimal Assistance,Verbal Cues Comments forward and sideways directional changes Water Level Chest Level Walking Equipment Ankle Weight- 2.5# Level of Assistance Standby Assistance,Contact Guard Assistance,Minimal Assistance,Verbal Cues Marching Water Level Chest Level Walking Equipment Ankle Weight- 2.5# Level of Assistance Standby Assistance,Contact Guard Assistance,Minimal Assistance,Verbal Cues Comments HAdd HAbd arms Backwards Water Level Chest Level Walking Equipment Ankle Weight- 2.5# Level of Assistance Standby Assistance,Minimal Assistance,Moderate Assistance ,Verbal Cues Comments BS arms Sideways Water Level Chest Level Walking Equipment Ankle Weight- 2.5# Level of Assistance Standby Assistance,Contact Guard Assistance Comments abd add arms simultaneous with LE action Forwards Water Level Chest Level Walking Equipment Ankle Weight- 2.5# Level of Assistance Standby Assistance,Verbal Cues Comments several LOB Lower Extremity Exercises hip figure 8 Details at wall Body Position Standing Water Level Chest Level Reps/Duration 8 bilat Comments pt requires manual assist step ups on boxes Details forward and sideways Water Level Waist Level Equipment [place] Float Reps/Duration 8 min Comments many LOBs; various size boxes hip ab/ad Body Position Standing Water Level Chest Level Reps/Duration 2x10 Comments hh on wall hip flex/ext Body Position Standing Water Level Chest Level Reps/Duration 2x10 Comments hh on wall squats on box Details muscle sequence activation- [id number] Water Level Chest Level Equipment Ankle Weight- 2.5# Reps/Duration 4 Comments hh on wall; good posture Lower Extremity Stretches ER/IR bilateral Details at wall Body Position Standing Water Level Chest Level Reps/Duration 45x2 Comments IR manually assisted gastroc Details at wall Body Position Standing Water Level Chest Level Reps/Duration 45x2 hip flexors Details at wall Body Position Standing Water Level Chest Level Reps/Duration 45x2 Comments manual cueing HS, Quad Details at wall Body Position Standing Water Level Chest Level Equipment Small Noodle Reps/Duration 45x2 Upper Extremity Exercises flex/ext, ab,ad Body Position Standing Water Level Chest Level Reps/Duration 10 ea Comments for core stabilization Spinal Exercises spinal stabilization with perturbances Body Position Standing Water Level Chest Level Reps/Duration 3 min Balance weight shifting forward and backward; side to side Body Position Standing Water Level Chest Level Reps/Duration 4 min Comments forward-backward with difficulty PT-OP-T Assessment and Plan Start: 02/02/19 17:43 Freq: Status: Active Protocol: Document 05/24/19 08:25 [facility] (Rec: 05/24/19 19:11 [facility] [id number]) Physical Therapy Assessment Goals gait Fitness Supervisor Goal (LTG) Pt will be able to walk for 10 min without requiring a rest break. 05/24-limited progress d/t recent surgery LTG Duration 05/06/19 mobility Short Term Goal (STG) Pt will be indep with log roll technique and report less difficulty with getting in and out of bed and rolling in bed . 05/24-improved log roll but still difficult d/t strength STG Duration 06/24/19 Fitness Supervisor Goal (LTG) Pt will be able to get in and out of a chair without use of UE 05/24-still requires UE LTG Duration 07/23/19 strength Short Term Goal (STG) Pt will be indep with HEP and will be going to gym 2-3x/week . 05/24-achieved prior to surgery on foot, pt is currently ocmpliant with HEP STG Duration 06/12/19 Senior Living Goal (LTG) Pt will improve LE strength to at least 4+/5 in order to allow pt to return to typical activities and ADLs with greater ease. 05/24-improved LTG Duration 07/23/19 fall risk Short Term Goal (STG) Pt will improve DE LA ROSA score to 35/56 to show dec fall risk with AD. 05/24-improved STG Duration 06/24/19 Fitness Supervisor Goal (LTG) Pt will improve DE LA ROSA score to 50/56 in order to show pt to be less liekly to fall in the community. LTG Duration 07/23/19 Assessment Summary Assessment Pt has made limited progress at this time d/t recent corn removal with difficulty at beginning of recovery. His last attended appt was Apr 14 d/t holidays, surgery and scehduling conflicts. He has improved with balance since IE along with strength likely d/ t his compliance with HEP. He would cotn to benefit from PT in order to dec falls. Physical Therapy Plan Frequency and Duration Frequency of Treatment 2x/Week Duration of Treatment 2 months Plan of Care Start Date 05/24/19 Plan of Care End Date 06/28/19 Therapeutic Interventions Therapeutic Interventions Aquatic Therapy,Balance Training,Gait Training,Home Exercise Program,Joint Mobilizations,Manual Therapy, Neuromuscular Re-education, Patient/Caregiver Education, Self-Care/Home Management,Soft Tissue Mobilization,Taping, Therapeutic Activities, Therapeutic Exercises Modalities Cold Pack/Ice Massage,Electric Stimulation,Hot Packs, Infrared Therapy,Ultrasound Next Visit Focus/Plan Next Note Type Treatment Note Next Visit Plan Begin progressing tolerance to standing balance exercises and directional changes w/o LOB. Increase intensity of LE exercises as tolerated. Ensure closure of surgical incision before continuing with pool therapy.
--- NOTE | 2019-05-24 19:14 | PT.OPPN ---
Current Diagnoses Polyneuropathy, unspecified (05/24/19) Spinal stenosis, lumbar region without neurogenic claudication (05/24/19) Difficulty in walking, not elsewhere classified (05/24/19) Other abnormalities of gait and mobility (05/24/19) Weakness (05/24/19) Physical Therapy Progress Note PT-OP-A Visit Information Start: 02/02/19 17:43 Freq: Status: Active Protocol: Document 05/24/19 08:25 [facility] (Rec: 05/24/19 19:11 [facility] [id number]) Out-Patient Physical Therapy Visit Information Visit Information Visit Type Treatment Note Visit Note 05/07 Visit Start Time 08:17 Visit Stop Time 09:11 Total Visit Minutes 54 Visit Number 20 Number of LAWN CARE SPECIALIST Visits 0 PT-OP-B Current Condition Start: 02/02/19 17:43 Freq: Status: Active Protocol: Document 02/03/19 11:22 [facility] (Rec: 02/03/19 12:13 [facility] [id number]) Current Condition History of Current Condition Onset Date >30 year back pain Current Complaints back pain & dec balance History of Current Condition Pt reports he wants to walk around without falling. Pt reports he has 2-3 per month and typically gets momentum fwd and cannot control that so falls fwd. No difference based on terrain. Pt reports history of back pain for 30 years with 2 fusion surgies and a laminectomy the 3rd surgery. Pt has a pain stimulator in his back which helped at first but as he got used it, its been less effective. Pt reprots it was done about 6 years ago. Pt reports he goes 1x.week to the [facility], he gets in the pool. Pt reports PT has been helpful in the past. Pt reports balance has been getting worse of the past year or 2 especially recently. Prior Treatments and Tests multiple bouts of PT, mult shots, mult MRIs Treatment Goals Patient/Caregiver Goals Dec falls, Be able to walk further distances (to car with ease, down driveway), get in and out of chairs easier, get in and out of bed and roll easier PT-OP-C Subjective Start: 02/02/19 17:43 Freq: Status: Active Protocol: Document 05/24/19 08:25 [facility] (Rec: 05/24/19 19:11 [facility] [id number]) OP-PT Subjective Patient Comments Patient Comments Pt reports he has 3 falls recently. He had a corn surgery which he said is heeling well and has been back to that MD 2x since surgery in early Apr. Pt reports he is seeing seeing neurologist on Jun 01. PT-OP-D Balance Start: 02/02/19 17:43 Freq: Status: Active Protocol: Document 05/24/19 08:25 [facility] (Rec: 05/24/19 19:11 [facility] [id number]) Balance Tests De La Rosa Balance Test De La Rosa Balance Test Score 32 PT-OP-F Manual Assessment Start: 02/02/19 17:43 Freq: Status: Active Protocol: Document 02/03/19 11:22 [facility] (Rec: 02/03/19 12:13 [facility] [id number]) Manual Assessments Soft Tissue Assessment Soft Tissue Mobility Assessment significant scar tissue tightness, ES B & QL B tightness PT-OP-G Mobility & Gait Start: 02/02/19 17:43 Freq: Status: Active Protocol: Document 02/03/19 11:22 [facility] (Rec: 02/03/19 12:13 [facility] [id number]) OP Gait Assessment Comments Gait Comments Pt amb with SPC with B lat leaning & fwd leaning. Dec overall push off PT-OP-M Strength Start: 02/02/19 17:43 Freq: Status: Active Protocol: Document 05/24/19 08:25 [facility] (Rec: 05/24/19 19:11 [facility] [id number]) Hip Strength Hip Manual Muscle Testing Left Flexion (L2) 4- Good- Extension (S1) 3+ Fair+ Abduction 3+ Fair+ External Rotation 4- Good- Internal Rotation 4- Good- Right Flexion (L2) 4 Good Extension (S1) 3 Fair Abduction 4 Good External Rotation 4+ Good+ Internal Rotation 4 Good Knee Strength Knee Manual Muscle Testing Left Flexion (S2) 4+ Good+ Extension (L3) 4+ Good+ Right Flexion (S2) 4+ Good+ Extension (L3) 4 Good Ankle/Foot Strength Ankle and Foot Manual Muscle Testing Left Dorsiflexion (L4) 5 Normal Plantarflexion (S1) 4 Good Right Dorsiflexion (L4) 5 Normal Plantarflexion (S1) 4 Good Comments seated PF testing PT-OP-T Assessment and Plan Start: 02/02/19 17:43 Freq: Status: Active Protocol: Document 05/24/19 08:25 [facility] (Rec: 05/24/19 19:11 [facility] [id number]) Physical Therapy Assessment Goals gait Swage Tender Goal (LTG) Pt will be able to walk for 10 min without requiring a rest break. 05/24-limited progress d/t recent surgery LTG Duration 05/06/19 mobility Short Term Goal (STG) Pt will be indep with log roll technique and report less difficulty with getting in and out of bed and rolling in bed . 05/24-improved log roll but still difficult d/t strength STG Duration 06/24/19 Swage Tender Goal (LTG) Pt will be able to get in and out of a chair without use of UE 05/24-still requires UE LTG Duration 07/23/19 strength Short Term Goal (STG) Pt will be indep with HEP and will be going to gym 2-3x/week . 05/24-achieved prior to surgery on foot, pt is currently ocmpliant with HEP STG Duration 06/12/19 Retirement Goal (LTG) Pt will improve LE strength to at least 4+/5 in order to allow pt to return to typical activities and ADLs with greater ease. 05/24-improved LTG Duration 07/23/19 fall risk Short Term Goal (STG) Pt will improve DE LA ROSA score to 35/56 to show dec fall risk with AD. 05/24-improved STG Duration 06/24/19 Retirement Goal (LTG) Pt will improve DE LA ROSA score to 50/56 in order to show pt to be less liekly to fall in the community. LTG Duration 07/23/19 Assessment Summary Assessment Pt has made limited progress at this time d/t recent corn removal with difficulty at beginning of recovery. His last attended appt was Apr 14 d/t holidays, surgery and scehduling conflicts. He has improved with balance since IE along with strength likely d/ t his compliance with HEP. He would cotn to benefit from PT in order to dec falls. Physical Therapy Plan Frequency and Duration Frequency of Treatment 2x/Week Duration of Treatment 2 months Plan of Care Start Date 05/24/19 Plan of Care End Date 06/28/19 Therapeutic Interventions Therapeutic Interventions Aquatic Therapy,Balance Training,Gait Training,Home Exercise Program,Joint Mobilizations,Manual Therapy, Neuromuscular Re-education, Patient/Caregiver Education, Self-Care/Home Management,Soft Tissue Mobilization,Taping, Therapeutic Activities, Therapeutic Exercises Modalities Cold Pack/Ice Massage,Electric Stimulation,Hot Packs, Infrared Therapy,Ultrasound Next Visit Focus/Plan Next Note Type Treatment Note Next Visit Plan Begin progressing tolerance to standing balance exercises and directional changes w/o LOB. Increase intensity of LE exercises as tolerated. Ensure closure of surgical incision before continuing with pool therapy.
--- NOTE | 2019-05-24 19:15 | PT.OPPOC ---
Physical, Occupational & Speech Therapy At [facility] Current Diagnoses Polyneuropathy, unspecified (05/24/19) Spinal stenosis, lumbar region without neurogenic claudication (05/24/19) Difficulty in walking, not elsewhere classified (05/24/19) Other abnormalities of gait and mobility (05/24/19) Weakness (05/24/19) Visit Care Team Role Provider Type Selena Bishop MD Attending Provider Non-Staff Primary Care Provider Specialty: Medical Address: [address] [place] [address], [id number] Email: Plan Of Care PT-OP-T Assessment and Plan Start: 02/02/19 17:43 Freq: Status: Active Protocol: Document 05/24/19 08:25 [facility] (Rec: 05/24/19 19:11 [facility] [id number]) Physical Therapy Assessment Goals gait Nursing Home Goal (LTG) Pt will be able to walk for 10 min without requiring a rest break. 05/24-limited progress d/t recent surgery LTG Duration 05/06/19 mobility Short Term Goal (STG) Pt will be indep with log roll technique and report less difficulty with getting in and out of bed and rolling in bed . 05/24-improved log roll but still difficult d/t strength STG Duration 06/24/19 Sprinkler Helper Goal (LTG) Pt will be able to get in and out of a chair without use of UE 05/24-still requires UE LTG Duration 07/23/19 strength Short Term Goal (STG) Pt will be indep with HEP and will be going to gym 2-3x/week . 05/24-achieved prior to surgery on foot, pt is currently ocmpliant with HEP STG Duration 06/12/19 Sprinkler Helper Goal (LTG) Pt will improve LE strength to at least 4+/5 in order to allow pt to return to typical activities and ADLs with greater ease. 05/24-improved LTG Duration 07/23/19 fall risk Short Term Goal (STG) Pt will improve DE LA ROSA score to 35/56 to show dec fall risk with AD. 05/24-improved STG Duration 06/24/19 Sprinkler Helper Goal (LTG) Pt will improve DE LA ROSA score to 50/56 in order to show pt to be less liekly to fall in the community. LTG Duration 07/23/19 Assessment Summary Assessment Pt has made limited progress at this time d/t recent corn removal with difficulty at beginning of recovery. His last attended appt was Apr 14 d/t holidays, surgery and scehduling conflicts. He has improved with balance since IE along with strength likely d/ t his compliance with HEP. He would cotn to benefit from PT in order to dec falls. Physical Therapy Plan Frequency and Duration Frequency of Treatment 2x/Week Duration of Treatment 2 months Plan of Care Start Date 05/24/19 Plan of Care End Date 07/23/19 Therapeutic Interventions Therapeutic Interventions Aquatic Therapy,Balance Training,Gait Training,Home Exercise Program,Joint Mobilizations,Manual Therapy, Neuromuscular Re-education, Patient/Caregiver Education, Self-Care/Home Management,Soft Tissue Mobilization,Taping, Therapeutic Activities, Therapeutic Exercises Modalities Cold Pack/Ice Massage,Electric Stimulation,Hot Packs, Infrared Therapy,Ultrasound Next Visit Focus/Plan Next Note Type Treatment Note Next Visit Plan Begin progressing tolerance to standing balance exercises and directional changes w/o LOB. Increase intensity of LE exercises as tolerated. Ensure closure of surgical incision before continuing with pool therapy. Plan of Care Dates Plan of Care Start Date 05/24/19 Plan of Care End Date 07/23/19 Electronically Signed by: Dina Kelly, PT 05/24/19 499 Please Sign and Return: I have reviewed this Plan of Care and certify that the skilled therapy services above are required to meet the patient?s needs. Physician Signature Date Printed Name and Credentials Clinical Instructor Signature Printed Name and Credentials
--- NOTE | 2019-05-26 15:21 | PT.OTN ---
Current Diagnoses Polyneuropathy, unspecified (05/26/19) Spinal stenosis, lumbar region without neurogenic claudication (05/26/19) Difficulty in walking, not elsewhere classified (05/26/19) Other abnormalities of gait and mobility (05/26/19) Weakness (05/26/19) Physical Therapy Treatment Note PT-OP-A Visit Information Start: 02/02/19 17:43 Freq: Status: Active Protocol: Document 05/26/19 14:42 [facility] (Rec: 05/26/19 15:21 [facility] [id number]) Out-Patient Physical Therapy Visit Information Visit Information Visit Type Treatment Note Visit Note 06/07 Visit Start Time 14:32 Visit Stop Time 15:23 Total Visit Minutes 51 Visit Number 21 Number of PAYROLL BENEFITS CLERK Visits 0 PT-OP-B Current Condition Start: 02/02/19 17:43 Freq: Status: Active Protocol: Document 02/03/19 11:22 [facility] (Rec: 02/03/19 12:13 [facility] [id number]) Current Condition History of Current Condition Onset Date >30 year back pain Current Complaints back pain & dec balance History of Current Condition Pt reports he wants to walk around without falling. Pt reports he has 2-3 per month and typically gets momentum fwd and cannot control that so falls fwd. No difference based on terrain. Pt reports history of back pain for 30 years with 2 fusion surgies and a laminectomy the 3rd surgery. Pt has a pain stimulator in his back which helped at first but as he got used it, its been less effective. Pt reprots it was done about 6 years ago. Pt reports he goes 1x.week to the [facility], he gets in the pool. Pt reports PT has been helpful in the past. Pt reports balance has been getting worse of the past year or 2 especially recently. Prior Treatments and Tests multiple bouts of PT, mult shots, mult MRIs Treatment Goals Patient/Caregiver Goals Dec falls, Be able to walk further distances (to car with ease, down driveway), get in and out of chairs easier, get in and out of bed and roll easier PT-OP-C Subjective Start: 02/02/19 17:43 Freq: Status: Active Protocol: Document 05/26/19 14:42 [facility] (Rec: 05/26/19 15:21 [facility] [id number]) OP-PT Subjective Patient Comments Patient Comments Pt had a fall in the parking lot at the [employer] when she left his walker and turned ot use his zepeda to car. Feels fine. PT-OP-D Balance Start: 02/02/19 17:43 Freq: Status: Active Protocol: Document 05/24/19 08:25 [facility] (Rec: 05/24/19 19:11 [facility] [id number]) Balance Tests De La Rosa Balance Test De La Rosa Balance Test Score 32 PT-OP-F Manual Assessment Start: 02/02/19 17:43 Freq: Status: Active Protocol: Document 02/03/19 11:22 [facility] (Rec: 02/03/19 12:13 [facility] [id number]) Manual Assessments Soft Tissue Assessment Soft Tissue Mobility Assessment significant scar tissue tightness, ES B & QL B tightness PT-OP-G Mobility & Gait Start: 02/02/19 17:43 Freq: Status: Active Protocol: Document 02/03/19 11:22 [facility] (Rec: 02/03/19 12:13 [facility] [id number]) OP Gait Assessment Comments Gait Comments Pt amb with SPC with B lat leaning & fwd leaning. Dec overall push off PT-OP-M Strength Start: 02/02/19 17:43 Freq: Status: Active Protocol: Document 05/24/19 08:25 [facility] (Rec: 05/24/19 19:11 [facility] [id number]) Hip Strength Hip Manual Muscle Testing Left Flexion (L2) 4- Good- Extension (S1) 3+ Fair+ Abduction 3+ Fair+ External Rotation 4- Good- Internal Rotation 4- Good- Right Flexion (L2) 4 Good Extension (S1) 3 Fair Abduction 4 Good External Rotation 4+ Good+ Internal Rotation 4 Good Knee Strength Knee Manual Muscle Testing Left Flexion (S2) 4+ Good+ Extension (L3) 4+ Good+ Right Flexion (S2) 4+ Good+ Extension (L3) 4 Good Ankle/Foot Strength Ankle and Foot Manual Muscle Testing Left Dorsiflexion (L4) 5 Normal Plantarflexion (S1) 4 Good Right Dorsiflexion (L4) 5 Normal Plantarflexion (S1) 4 Good Comments seated PF testing PT-OP-Q Treatments Start: 02/02/19 17:43 Freq: Status: Active Protocol: Document 05/26/19 14:42 [facility] (Rec: 05/26/19 15:21 [facility] [id number]) Cardio Equipment Recumbent Elliptical (Biodex) Duration (Minutes) 7 Resistance 5 Therapeutic Exercises Sidelying Exercises ER Sidelying Exercise Name clamshell Side bilateral Reps/Minutes 15 hip abd Side bilateral Reps/Minutes 15ea Manual Therapy Treatment Soft Tissue Mobilization Scar tissue Body Location lumbar scar tissue & ES & QL Mobilization Type Myofascial Release,Rolling, Sustained Pressure Intensity/Depth Moderate Body Position Sidelying Neuro Re-Education Treatment Balance Activities tpads Details staggered stance B Surface blue PT-OP-R Modalities Start: 02/02/19 17:43 Freq: Status: Active Protocol: Document 05/26/19 14:42 [facility] (Rec: 05/26/19 15:21 [facility] [id number]) Hot Pack/Cold Pack Treatment Cold Pack Location lumbar Patient Position Sidelying Treatment Duration (minutes) 10 Patient Tolerance Good PT-OP-S Aquatic Treatment Start: 02/26/19 16:08 Freq: Status: Active Protocol: Document 04/12/19 10:15 [facility] (Rec: 04/12/19 16:04 [id number]) Aquatics Treatment Pool Entry/Exit Pool Entry/Exit Method Stairs Assistance Independent Water Walking stop/start/stabilize Water Level Chest Level Walking Equipment Ankle Weight- 2.5# Level of Assistance Standby Assistance,Contact Guard Assistance,Minimal Assistance,Verbal Cues Comments forward and sideways directional changes Water Level Chest Level Walking Equipment Ankle Weight- 2.5# Level of Assistance Standby Assistance,Contact Guard Assistance,Minimal Assistance,Verbal Cues Marching Water Level Chest Level Walking Equipment Ankle Weight- 2.5# Level of Assistance Standby Assistance,Contact Guard Assistance,Minimal Assistance,Verbal Cues Comments HAdd HAbd arms Backwards Water Level Chest Level Walking Equipment Ankle Weight- 2.5# Level of Assistance Standby Assistance,Minimal Assistance,Moderate Assistance ,Verbal Cues Comments BS arms Sideways Water Level Chest Level Walking Equipment Ankle Weight- 2.5# Level of Assistance Standby Assistance,Contact Guard Assistance Comments abd add arms simultaneous with LE action Forwards Water Level Chest Level Walking Equipment Ankle Weight- 2.5# Level of Assistance Standby Assistance,Verbal Cues Comments several LOB Lower Extremity Exercises hip figure 8 Details at wall Body Position Standing Water Level Chest Level Reps/Duration 8 bilat Comments pt requires manual assist step ups on boxes Details forward and sideways Water Level Waist Level Equipment [place] Float Reps/Duration 8 min Comments many LOBs; various size boxes hip ab/ad Body Position Standing Water Level Chest Level Reps/Duration 2x10 Comments hh on wall hip flex/ext Body Position Standing Water Level Chest Level Reps/Duration 2x10 Comments hh on wall squats on box Details muscle sequence activation- [id number] Water Level Chest Level Equipment Ankle Weight- 2.5# Reps/Duration 4 Comments hh on wall; good posture Lower Extremity Stretches ER/IR bilateral Details at wall Body Position Standing Water Level Chest Level Reps/Duration 45x2 Comments IR manually assisted gastroc Details at wall Body Position Standing Water Level Chest Level Reps/Duration 45x2 hip flexors Details at wall Body Position Standing Water Level Chest Level Reps/Duration 45x2 Comments manual cueing HS, Quad Details at wall Body Position Standing Water Level Chest Level Equipment Small Noodle Reps/Duration 45x2 Upper Extremity Exercises flex/ext, ab,ad Body Position Standing Water Level Chest Level Reps/Duration 10 ea Comments for core stabilization Spinal Exercises spinal stabilization with perturbances Body Position Standing Water Level Chest Level Reps/Duration 3 min Balance weight shifting forward and backward; side to side Body Position Standing Water Level Chest Level Reps/Duration 4 min Comments forward-backward with difficulty PT-OP-T Assessment and Plan Start: 02/02/19 17:43 Freq: Status: Active Protocol: Document 05/26/19 14:42 [facility] (Rec: 05/26/19 15:21 [facility] [id number]) Physical Therapy Assessment Goals gait Halfway Goal (LTG) Pt will be able to walk for 10 min without requiring a rest break. 05/24-limited progress d/t recent surgery LTG Duration 05/06/19 mobility Short Term Goal (STG) Pt will be indep with log roll technique and report less difficulty with getting in and out of bed and rolling in bed . 05/24-improved log roll but still difficult d/t strength STG Duration 06/24/19 Rat Culturist Goal (LTG) Pt will be able to get in and out of a chair without use of UE 05/24-still requires UE LTG Duration 07/23/19 strength Short Term Goal (STG) Pt will be indep with HEP and will be going to gym 2-3x/week . 05/24-achieved prior to surgery on foot, pt is currently ocmpliant with HEP STG Duration 06/12/19 Halfway Goal (LTG) Pt will improve LE strength to at least 4+/5 in order to allow pt to return to typical activities and ADLs with greater ease. 05/24-improved LTG Duration 07/23/19 fall risk Short Term Goal (STG) Pt will improve DE LA ROSA score to 35/56 to show dec fall risk with AD. 05/24-improved STG Duration 06/24/19 Halfway Goal (LTG) Pt will improve DE LA ROSA score to 50/56 in order to show pt to be less liekly to fall in the community. LTG Duration 07/23/19 Assessment Summary Assessment Pt did well with s/l exercises and HS stretching. He struggled with staggered stance. Pt cont to geena cueing to keep FWW with him at all time. Physical Therapy Plan Frequency and Duration Frequency of Treatment 2x/Week Duration of Treatment 2 months Plan of Care Start Date 05/24/19 Plan of Care End Date 07/23/19 Next Visit Focus/Plan Next Note Type Treatment Note Next Visit Plan Begin progressing tolerance to standing balance exercises and directional changes w/o LOB. Increase intensity of LE exercises as tolerated. Ensure closure of surgical incision before continuing with pool therapy.
--- NOTE | 2019-05-31 12:08 | PT.OTN ---
Current Diagnoses Polyneuropathy, unspecified (05/31/19) Spinal stenosis, lumbar region without neurogenic claudication (05/31/19) Difficulty in walking, not elsewhere classified (05/31/19) Other abnormalities of gait and mobility (05/31/19) Weakness (05/31/19) Physical Therapy Treatment Note PT-OP-A Visit Information Start: 02/02/19 17:43 Freq: Status: Active Protocol: Document 05/31/19 11:21 [facility] (Rec: 05/31/19 12:08 [facility] [id number]) Out-Patient Physical Therapy Visit Information Visit Information Visit Type Treatment Note Visit Note 07/05 Visit Start Time 11:18 Visit Stop Time 12:08 Total Visit Minutes 50 Visit Number 22 Number of CONCRETE BUSTER OPERATOR Visits 0 PT-OP-B Current Condition Start: 02/02/19 17:43 Freq: Status: Active Protocol: Document 02/03/19 11:22 [facility] (Rec: 02/03/19 12:13 [facility] [id number]) Current Condition History of Current Condition Onset Date >30 year back pain Current Complaints back pain & dec balance History of Current Condition Pt reports he wants to walk around without falling. Pt reports he has 2-3 per month and typically gets momentum fwd and cannot control that so falls fwd. No difference based on terrain. Pt reports history of back pain for 30 years with 2 fusion surgies and a laminectomy the 3rd surgery. Pt has a pain stimulator in his back which helped at first but as he got used it, its been less effective. Pt reprots it was done about 6 years ago. Pt reports he goes 1x.week to the [facility], he gets in the pool. Pt reports PT has been helpful in the past. Pt reports balance has been getting worse of the past year or 2 especially recently. Prior Treatments and Tests multiple bouts of PT, mult shots, mult MRIs Treatment Goals Patient/Caregiver Goals Dec falls, Be able to walk further distances (to car with ease, down driveway), get in and out of chairs easier, get in and out of bed and roll easier PT-OP-C Subjective Start: 02/02/19 17:43 Freq: Status: Active Protocol: Document 05/31/19 11:21 [facility] (Rec: 05/31/19 12:08 [facility] [id number]) OP-PT Subjective Patient Comments Patient Comments Pt reprots he had some abdomenal tightness in L side Friday but its better now. PT-OP-D Balance Start: 02/02/19 17:43 Freq: Status: Active Protocol: Document 05/24/19 08:25 [facility] (Rec: 05/24/19 19:11 [facility] [id number]) Balance Tests De La Rosa Balance Test De La Rosa Balance Test Score 32 PT-OP-F Manual Assessment Start: 02/02/19 17:43 Freq: Status: Active Protocol: Document 02/03/19 11:22 [facility] (Rec: 02/03/19 12:13 [facility] [id number]) Manual Assessments Soft Tissue Assessment Soft Tissue Mobility Assessment significant scar tissue tightness, ES B & QL B tightness PT-OP-G Mobility & Gait Start: 02/02/19 17:43 Freq: Status: Active Protocol: Document 02/03/19 11:22 [facility] (Rec: 02/03/19 12:13 [facility] [id number]) OP Gait Assessment Comments Gait Comments Pt amb with SPC with B lat leaning & fwd leaning. Dec overall push off PT-OP-M Strength Start: 02/02/19 17:43 Freq: Status: Active Protocol: Document 05/24/19 08:25 [facility] (Rec: 05/24/19 19:11 [facility] [id number]) Hip Strength Hip Manual Muscle Testing Left Flexion (L2) 4- Good- Extension (S1) 3+ Fair+ Abduction 3+ Fair+ External Rotation 4- Good- Internal Rotation 4- Good- Right Flexion (L2) 4 Good Extension (S1) 3 Fair Abduction 4 Good External Rotation 4+ Good+ Internal Rotation 4 Good Knee Strength Knee Manual Muscle Testing Left Flexion (S2) 4+ Good+ Extension (L3) 4+ Good+ Right Flexion (S2) 4+ Good+ Extension (L3) 4 Good Ankle/Foot Strength Ankle and Foot Manual Muscle Testing Left Dorsiflexion (L4) 5 Normal Plantarflexion (S1) 4 Good Right Dorsiflexion (L4) 5 Normal Plantarflexion (S1) 4 Good Comments seated PF testing PT-OP-Q Treatments Start: 02/02/19 17:43 Freq: Status: Active Protocol: Document 05/31/19 11:21 [facility] (Rec: 05/31/19 12:08 [facility] [id number]) Therapeutic Exercises Sidelying Exercises ER Sidelying Exercise Name clamshell Side bilateral Reps/Minutes 15 hip abd Side bilateral Reps/Minutes 15ea Standing Exercises 4 way hip Standing Exercise Name hip abd, ext, flex Side bilateral Reps/Minutes 10 ea sit<>stand Side bilateral Reps/Minutes 6 Comments hands as needed Manual Therapy Treatment Soft Tissue Mobilization hip flexor/ant thigh Body Location L hip flexors Scar tissue Body Location lumbar scar tissue & ES & QL Mobilization Type Myofascial Release,Rolling, Sustained Pressure Intensity/Depth Moderate Body Position Sidelying PT-OP-R Modalities Start: 02/02/19 17:43 Freq: Status: Active Protocol: Document 05/31/19 11:21 [facility] (Rec: 05/31/19 12:08 [facility] [id number]) Hot Pack/Cold Pack Treatment Cold Pack Location lumbar Patient Position Sidelying Treatment Duration (minutes) 10 Patient Tolerance Good PT-OP-S Aquatic Treatment Start: 02/26/19 16:08 Freq: Status: Active Protocol: Document 04/12/19 10:15 (Rec: 04/12/19 16:04 [id number]) Aquatics Treatment Pool Entry/Exit Pool Entry/Exit Method Stairs Assistance Independent Water Walking stop/start/stabilize Water Level Chest Level Walking Equipment Ankle Weight- 2.5# Level of Assistance Standby Assistance,Contact Guard Assistance,Minimal Assistance,Verbal Cues Comments forward and sideways directional changes Water Level Chest Level Walking Equipment Ankle Weight- 2.5# Level of Assistance Standby Assistance,Contact Guard Assistance,Minimal Assistance,Verbal Cues Marching Water Level Chest Level Walking Equipment Ankle Weight- 2.5# Level of Assistance Standby Assistance,Contact Guard Assistance,Minimal Assistance,Verbal Cues Comments HAdd HAbd arms Backwards Water Level Chest Level Walking Equipment Ankle Weight- 2.5# Level of Assistance Standby Assistance,Minimal Assistance,Moderate Assistance ,Verbal Cues Comments BS arms Sideways Water Level Chest Level Walking Equipment Ankle Weight- 2.5# Level of Assistance Standby Assistance,Contact Guard Assistance Comments abd add arms simultaneous with LE action Forwards Water Level Chest Level Walking Equipment Ankle Weight- 2.5# Level of Assistance Standby Assistance,Verbal Cues Comments several LOB Lower Extremity Exercises hip figure 8 Details at wall Body Position Standing Water Level Chest Level Reps/Duration 8 bilat Comments pt requires manual assist step ups on boxes Details forward and sideways Water Level Waist Level Equipment [place] Float Reps/Duration 8 min Comments many LOBs; various size boxes hip ab/ad Body Position Standing Water Level Chest Level Reps/Duration 2x10 Comments hh on wall hip flex/ext Body Position Standing Water Level Chest Level Reps/Duration 2x10 Comments hh on wall squats on box Details muscle sequence activation- [id number] Water Level Chest Level Equipment Ankle Weight- 2.5# Reps/Duration 4 Comments hh on wall; good posture Lower Extremity Stretches ER/IR bilateral Details at wall Body Position Standing Water Level Chest Level Reps/Duration 45x2 Comments IR manually assisted gastroc Details at wall Body Position Standing Water Level Chest Level Reps/Duration 45x2 hip flexors Details at wall Body Position Standing Water Level Chest Level Reps/Duration 45x2 Comments manual cueing HS, Quad Details at wall Body Position Standing Water Level Chest Level Equipment Small Noodle Reps/Duration 45x2 Upper Extremity Exercises flex/ext, ab,ad Body Position Standing Water Level Chest Level Reps/Duration 10 ea Comments for core stabilization Spinal Exercises spinal stabilization with perturbances Body Position Standing Water Level Chest Level Reps/Duration 3 min Balance weight shifting forward and backward; side to side Body Position Standing Water Level Chest Level Reps/Duration 4 min Comments forward-backward with difficulty PT-OP-T Assessment and Plan Start: 02/02/19 17:43 Freq: Status: Active Protocol: Document 05/31/19 11:21 [facility] (Rec: 05/31/19 12:08 [facility] [id number]) Physical Therapy Assessment Goals gait Skilled Nursing Goal (LTG) Pt will be able to walk for 10 min without requiring a rest break. 05/24-limited progress d/t recent surgery LTG Duration 05/06/19 mobility Short Term Goal (STG) Pt will be indep with log roll technique and report less difficulty with getting in and out of bed and rolling in bed . 05/24-improved log roll but still difficult d/t strength STG Duration 06/24/19 Escalator Service Mechanic Goal (LTG) Pt will be able to get in and out of a chair without use of UE 05/24-still requires UE LTG Duration 07/23/19 strength Short Term Goal (STG) Pt will be indep with HEP and will be going to gym 2-3x/week . 05/24-achieved prior to surgery on foot, pt is currently ocmpliant with HEP STG Duration 06/12/19 Escalator Service Mechanic Goal (LTG) Pt will improve LE strength to at least 4+/5 in order to allow pt to return to typical activities and ADLs with greater ease. 05/24-improved LTG Duration 07/23/19 fall risk Short Term Goal (STG) Pt will improve DE LA ROSA score to 35/56 to show dec fall risk with AD. 05/24-improved STG Duration 06/24/19 Skilled Nursing Goal (LTG) Pt will improve DE LA ROSA score to 50/56 in order to show pt to be less liekly to fall in the community. LTG Duration 07/23/19 Assessment Summary Assessment Pt has improved tolerance to standing exercises today. His ability to sit <>stand was limited as 6 sit to stands fatigued him significantly. Physical Therapy Plan Frequency and Duration Frequency of Treatment 2x/Week Duration of Treatment 2 months Plan of Care Start Date 05/24/19 Plan of Care End Date 07/23/19 Next Visit Focus/Plan Next Note Type Treatment Note Next Visit Plan cont to inc standing tolerance slowly & core & Leg strength
--- NOTE | 2019-06-02 12:09 | PT.OTN ---
Current Diagnoses Polyneuropathy, unspecified (06/02/19) Spinal stenosis, lumbar region without neurogenic claudication (06/02/19) Difficulty in walking, not elsewhere classified (06/02/19) Other abnormalities of gait and mobility (06/02/19) Weakness (06/02/19) Physical Therapy Treatment Note PT-OP-A Visit Information Start: 02/02/19 17:43 Freq: Status: Active Protocol: Document 06/02/19 11:24 [facility] (Rec: 06/02/19 12:08 [facility] [id number]) Out-Patient Physical Therapy Visit Information Visit Information Visit Type Treatment Note Visit Note 08/05 Visit Start Time 11:17 Visit Stop Time 12:07 Total Visit Minutes 50 Visit Number 23 Number of QUILL COLLECTOR Visits 0 PT-OP-B Current Condition Start: 02/02/19 17:43 Freq: Status: Active Protocol: Document 02/03/19 11:22 [facility] (Rec: 02/03/19 12:13 [facility] [id number]) Current Condition History of Current Condition Onset Date >30 year back pain Current Complaints back pain & dec balance History of Current Condition Pt reports he wants to walk around without falling. Pt reports he has 2-3 per month and typically gets momentum fwd and cannot control that so falls fwd. No difference based on terrain. Pt reports history of back pain for 30 years with 2 fusion surgies and a laminectomy the 3rd surgery. Pt has a pain stimulator in his back which helped at first but as he got used it, its been less effective. Pt reprots it was done about 6 years ago. Pt reports he goes 1x.week to the [facility], he gets in the pool. Pt reports PT has been helpful in the past. Pt reports balance has been getting worse of the past year or 2 especially recently. Prior Treatments and Tests multiple bouts of PT, mult shots, mult MRIs Treatment Goals Patient/Caregiver Goals Dec falls, Be able to walk further distances (to car with ease, down driveway), get in and out of chairs easier, get in and out of bed and roll easier PT-OP-C Subjective Start: 02/02/19 17:43 Freq: Status: Active Protocol: Document 06/02/19 11:24 [facility] (Rec: 06/02/19 12:08 [facility] [id number]) OP-PT Subjective Patient Comments Patient Comments Pt reports he had a fall yesterday. PT-OP-D Balance Start: 02/02/19 17:43 Freq: Status: Active Protocol: Document 05/24/19 08:25 [facility] (Rec: 05/24/19 19:11 [facility] [id number]) Balance Tests De La Rosa Balance Test De La Rosa Balance Test Score 32 PT-OP-F Manual Assessment Start: 02/02/19 17:43 Freq: Status: Active Protocol: Document 02/03/19 11:22 [facility] (Rec: 02/03/19 12:13 [facility] [id number]) Manual Assessments Soft Tissue Assessment Soft Tissue Mobility Assessment significant scar tissue tightness, ES B & QL B tightness PT-OP-G Mobility & Gait Start: 02/02/19 17:43 Freq: Status: Active Protocol: Document 02/03/19 11:22 [facility] (Rec: 02/03/19 12:13 [facility] [id number]) OP Gait Assessment Comments Gait Comments Pt amb with SPC with B lat leaning & fwd leaning. Dec overall push off PT-OP-M Strength Start: 02/02/19 17:43 Freq: Status: Active Protocol: Document 05/24/19 08:25 [facility] (Rec: 05/24/19 19:11 [facility] [id number]) Hip Strength Hip Manual Muscle Testing Left Flexion (L2) 4- Good- Extension (S1) 3+ Fair+ Abduction 3+ Fair+ External Rotation 4- Good- Internal Rotation 4- Good- Right Flexion (L2) 4 Good Extension (S1) 3 Fair Abduction 4 Good External Rotation 4+ Good+ Internal Rotation 4 Good Knee Strength Knee Manual Muscle Testing Left Flexion (S2) 4+ Good+ Extension (L3) 4+ Good+ Right Flexion (S2) 4+ Good+ Extension (L3) 4 Good Ankle/Foot Strength Ankle and Foot Manual Muscle Testing Left Dorsiflexion (L4) 5 Normal Plantarflexion (S1) 4 Good Right Dorsiflexion (L4) 5 Normal Plantarflexion (S1) 4 Good Comments seated PF testing PT-OP-Q Treatments Start: 02/02/19 17:43 Freq: Status: Active Protocol: Document 06/02/19 11:24 [facility] (Rec: 06/02/19 12:08 [facility] [id number]) Cardio Equipment Recumbent Stepper (Sci-Fit) Duration (Minutes) 8 Resistance 4 Seat Position 11 Gym Equipment Therapeutic Ball sitting balance Exercise Details circles B & toe taps B Ball Size/Color 65 cm Reps/Duration 10 ea Therapeutic Exercises Standing Exercises side step Side bilateral Reps/Minutes 15ftx2 Manual Therapy Treatment Soft Tissue Mobilization hip flexor/ant thigh Body Location L Mobilization Type Rolling,Strumming Scar tissue Body Location lumbar scar tissue & ES & QL Mobilization Type Myofascial Release,Rolling, Sustained Pressure Intensity/Depth Moderate Body Position Sidelying PT-OP-R Modalities Start: 02/02/19 17:43 Freq: Status: Active Protocol: Document 06/02/19 11:24 [facility] (Rec: 06/02/19 12:08 [facility] [id number]) Hot Pack/Cold Pack Treatment Cold Pack Location lumbar & L hip flexor Patient Position Sidelying Treatment Duration (minutes) 10 Patient Tolerance Good PT-OP-S Aquatic Treatment Start: 02/26/19 16:08 Freq: Status: Active Protocol: Document 04/12/19 10:15 [facility] (Rec: 04/12/19 16:04 [facility] [id number]) Aquatics Treatment Pool Entry/Exit Pool Entry/Exit Method Stairs Assistance Independent Water Walking stop/start/stabilize Water Level Chest Level Walking Equipment Ankle Weight- 2.5# Level of Assistance Standby Assistance,Contact Guard Assistance,Minimal Assistance,Verbal Cues Comments forward and sideways directional changes Water Level Chest Level Walking Equipment Ankle Weight- 2.5# Level of Assistance Standby Assistance,Contact Guard Assistance,Minimal Assistance,Verbal Cues Marching Water Level Chest Level Walking Equipment Ankle Weight- 2.5# Level of Assistance Standby Assistance,Contact Guard Assistance,Minimal Assistance,Verbal Cues Comments HAdd HAbd arms Backwards Water Level Chest Level Walking Equipment Ankle Weight- 2.5# Level of Assistance Standby Assistance,Minimal Assistance,Moderate Assistance ,Verbal Cues Comments BS arms Sideways Water Level Chest Level Walking Equipment Ankle Weight- 2.5# Level of Assistance Standby Assistance,Contact Guard Assistance Comments abd add arms simultaneous with LE action Forwards Water Level Chest Level Walking Equipment Ankle Weight- 2.5# Level of Assistance Standby Assistance,Verbal Cues Comments several LOB Lower Extremity Exercises hip figure 8 Details at wall Body Position Standing Water Level Chest Level Reps/Duration 8 bilat Comments pt requires manual assist step ups on boxes Details forward and sideways Water Level Waist Level Equipment [place] Float Reps/Duration 8 min Comments many LOBs; various size boxes hip ab/ad Body Position Standing Water Level Chest Level Reps/Duration 2x10 Comments hh on wall hip flex/ext Body Position Standing Water Level Chest Level Reps/Duration 2x10 Comments hh on wall squats on box Details muscle sequence activation- [id number] Water Level Chest Level Equipment Ankle Weight- 2.5# Reps/Duration 4 Comments hh on wall; good posture Lower Extremity Stretches ER/IR bilateral Details at wall Body Position Standing Water Level Chest Level Reps/Duration 45x2 Comments IR manually assisted gastroc Details at wall Body Position Standing Water Level Chest Level Reps/Duration 45x2 hip flexors Details at wall Body Position Standing Water Level Chest Level Reps/Duration 45x2 Comments manual cueing HS, Quad Details at wall Body Position Standing Water Level Chest Level Equipment Small Noodle Reps/Duration 45x2 Upper Extremity Exercises flex/ext, ab,ad Body Position Standing Water Level Chest Level Reps/Duration 10 ea Comments for core stabilization Spinal Exercises spinal stabilization with perturbances Body Position Standing Water Level Chest Level Reps/Duration 3 min Balance weight shifting forward and backward; side to side Body Position Standing Water Level Chest Level Reps/Duration 4 min Comments forward-backward with difficulty PT-OP-T Assessment and Plan Start: 02/02/19 17:43 Freq: Status: Active Protocol: Document 06/02/19 11:24 [facility] (Rec: 06/02/19 12:08 [facility] [id number]) Physical Therapy Assessment Goals gait Longterm Goal (LTG) Pt will be able to walk for 10 min without requiring a rest break. 05/24-limited progress d/t recent surgery LTG Duration 05/06/19 mobility Short Term Goal (STG) Pt will be indep with log roll technique and report less difficulty with getting in and out of bed and rolling in bed . 05/24-improved log roll but still difficult d/t strength STG Duration 06/24/19 Longterm Goal (LTG) Pt will be able to get in and out of a chair without use of UE 05/24-still requires UE LTG Duration 07/23/19 strength Short Term Goal (STG) Pt will be indep with HEP and will be going to gym 2-3x/week . 05/24-achieved prior to surgery on foot, pt is currently ocmpliant with HEP STG Duration 06/12/19 Longterm Goal (LTG) Pt will improve LE strength to at least 4+/5 in order to allow pt to return to typical activities and ADLs with greater ease. 05/24-improved LTG Duration 07/23/19 fall risk Short Term Goal (STG) Pt will improve DE LA ROSA score to 35/56 to show dec fall risk with AD. 05/24-improved STG Duration 06/24/19 Longterm Goal (LTG) Pt will improve DE LA ROSA score to 50/56 in order to show pt to be less liekly to fall in the community. LTG Duration 07/23/19 Assessment Summary Assessment Pt did not tolerat standing exercises well today so transitioned to working on the ball instead. He had difficulty with balance on tball. Significant L QL tightness Physical Therapy Plan Frequency and Duration Frequency of Treatment 2x/Week Duration of Treatment 2 months Plan of Care Start Date 05/24/19 Plan of Care End Date 07/23/19 Next Visit Focus/Plan Next Note Type Treatment Note Next Visit Plan cont to inc standing tolerance slowly & core & Leg strength
--- NOTE | 2019-06-07 12:06 | PT.OTN ---
Current Diagnoses Polyneuropathy, unspecified (06/07/19) Spinal stenosis, lumbar region without neurogenic claudication (06/07/19) Difficulty in walking, not elsewhere classified (06/07/19) Other abnormalities of gait and mobility (06/07/19) Weakness (06/07/19) Physical Therapy Treatment Note PT-OP-A Visit Information Start: 02/02/19 17:43 Freq: Status: Active Protocol: Document 06/07/19 11:25 [facility] (Rec: 06/07/19 12:06 [facility] [id number]) Out-Patient Physical Therapy Visit Information Visit Information Visit Type Treatment Note Visit Note 09/04 Visit Start Time 11:18 Visit Stop Time 12:09 Total Visit Minutes 51 Visit Number 24 Number of SALES ESTIMATOR Visits 0 PT-OP-B Current Condition Start: 02/02/19 17:43 Freq: Status: Active Protocol: Document 02/03/19 11:22 [facility] (Rec: 02/03/19 12:13 [facility] [id number]) Current Condition History of Current Condition Onset Date >30 year back pain Current Complaints back pain & dec balance History of Current Condition Pt reports he wants to walk around without falling. Pt reports he has 2-3 per month and typically gets momentum fwd and cannot control that so falls fwd. No difference based on terrain. Pt reports history of back pain for 30 years with 2 fusion surgies and a laminectomy the 3rd surgery. Pt has a pain stimulator in his back which helped at first but as he got used it, its been less effective. Pt reprots it was done about 6 years ago. Pt reports he goes 1x.week to the [facility], he gets in the pool. Pt reports PT has been helpful in the past. Pt reports balance has been getting worse of the past year or 2 especially recently. Prior Treatments and Tests multiple bouts of PT, mult shots, mult MRIs Treatment Goals Patient/Caregiver Goals Dec falls, Be able to walk further distances (to car with ease, down driveway), get in and out of chairs easier, get in and out of bed and roll easier PT-OP-C Subjective Start: 02/02/19 17:43 Freq: Status: Active Protocol: Document 06/07/19 11:25 [facility] (Rec: 06/07/19 12:06 [facility] [id number]) OP-PT Subjective Patient Comments Patient Comments No falls after last session but was exhausted. He felt some pain along B sides after. He does his exercise sin theAM. PT-OP-D Balance Start: 02/02/19 17:43 Freq: Status: Active Protocol: Document 05/24/19 08:25 [facility] (Rec: 05/24/19 19:11 [facility] [id number]) Balance Tests De La Rosa Balance Test De La Rosa Balance Test Score 32 PT-OP-F Manual Assessment Start: 02/02/19 17:43 Freq: Status: Active Protocol: Document 02/03/19 11:22 [facility] (Rec: 02/03/19 12:13 [facility] [id number]) Manual Assessments Soft Tissue Assessment Soft Tissue Mobility Assessment significant scar tissue tightness, ES B & QL B tightness PT-OP-G Mobility & Gait Start: 02/02/19 17:43 Freq: Status: Active Protocol: Document 02/03/19 11:22 [facility] (Rec: 02/03/19 12:13 [facility] [id number]) OP Gait Assessment Comments Gait Comments Pt amb with SPC with B lat leaning & fwd leaning. Dec overall push off PT-OP-M Strength Start: 02/02/19 17:43 Freq: Status: Active Protocol: Document 05/24/19 08:25 [facility] (Rec: 05/24/19 19:11 [facility] [id number]) Hip Strength Hip Manual Muscle Testing Left Flexion (L2) 4- Good- Extension (S1) 3+ Fair+ Abduction 3+ Fair+ External Rotation 4- Good- Internal Rotation 4- Good- Right Flexion (L2) 4 Good Extension (S1) 3 Fair Abduction 4 Good External Rotation 4+ Good+ Internal Rotation 4 Good Knee Strength Knee Manual Muscle Testing Left Flexion (S2) 4+ Good+ Extension (L3) 4+ Good+ Right Flexion (S2) 4+ Good+ Extension (L3) 4 Good Ankle/Foot Strength Ankle and Foot Manual Muscle Testing Left Dorsiflexion (L4) 5 Normal Plantarflexion (S1) 4 Good Right Dorsiflexion (L4) 5 Normal Plantarflexion (S1) 4 Good Comments seated PF testing PT-OP-Q Treatments Start: 02/02/19 17:43 Freq: Status: Active Protocol: Document 06/07/19 11:25 [facility] (Rec: 06/07/19 12:06 [facility] [id number]) Cardio Equipment Recumbent Stepper (Sci-Fit) Duration (Minutes) 7 Resistance 5 Seat Position 11 Gym Equipment Therapeutic Ball bridge Ball Size/Color 55cm` Body Position Supine Reps/Duration 20 Comments calves on ball knee flex Ball Size/Color 55cm Body Position Supine Reps/Duration 20 Comments focus on core LTR Ball Size/Color 55cm Body Position Supine Reps/Duration 20 Therapeutic Exercises Standing Exercises side step Side bilateral Reps/Minutes 20ftx2 Manual Therapy Treatment Soft Tissue Mobilization Scar tissue Body Location lumbar scar tissue & ES & QL Mobilization Type Myofascial Release,Rolling, Sustained Pressure Intensity/Depth Moderate Body Position Sidelying Neuro Re-Education Treatment Balance Activities tpads Details staggered stance B Surface blue PT-OP-R Modalities Start: 02/02/19 17:43 Freq: Status: Active Protocol: Document 06/07/19 11:25 [facility] (Rec: 06/07/19 12:06 [facility] [id number]) Hot Pack/Cold Pack Treatment Cold Pack Location lumbar & L hip flexor Patient Position Sidelying Treatment Duration (minutes) 10 Patient Tolerance Good PT-OP-S Aquatic Treatment Start: 02/26/19 16:08 Freq: Status: Active Protocol: Document 04/12/19 10:15 [facility] (Rec: 04/12/19 16:04 [facility] [id number]) Aquatics Treatment Pool Entry/Exit Pool Entry/Exit Method Stairs Assistance Independent Water Walking stop/start/stabilize Water Level Chest Level Walking Equipment Ankle Weight- 2.5# Level of Assistance Standby Assistance,Contact Guard Assistance,Minimal Assistance,Verbal Cues Comments forward and sideways directional changes Water Level Chest Level Walking Equipment Ankle Weight- 2.5# Level of Assistance Standby Assistance,Contact Guard Assistance,Minimal Assistance,Verbal Cues Marching Water Level Chest Level Walking Equipment Ankle Weight- 2.5# Level of Assistance Standby Assistance,Contact Guard Assistance,Minimal Assistance,Verbal Cues Comments HAdd HAbd arms Backwards Water Level Chest Level Walking Equipment Ankle Weight- 2.5# Level of Assistance Standby Assistance,Minimal Assistance,Moderate Assistance ,Verbal Cues Comments BS arms Sideways Water Level Chest Level Walking Equipment Ankle Weight- 2.5# Level of Assistance Standby Assistance,Contact Guard Assistance Comments abd add arms simultaneous with LE action Forwards Water Level Chest Level Walking Equipment Ankle Weight- 2.5# Level of Assistance Standby Assistance,Verbal Cues Comments several LOB Lower Extremity Exercises hip figure 8 Details at wall Body Position Standing Water Level Chest Level Reps/Duration 8 bilat Comments pt requires manual assist step ups on boxes Details forward and sideways Water Level Waist Level Equipment [place] Float Reps/Duration 8 min Comments many LOBs; various size boxes hip ab/ad Body Position Standing Water Level Chest Level Reps/Duration 2x10 Comments hh on wall hip flex/ext Body Position Standing Water Level Chest Level Reps/Duration 2x10 Comments hh on wall squats on box Details muscle sequence activation- [id number] Water Level Chest Level Equipment Ankle Weight- 2.5# Reps/Duration 4 Comments hh on wall; good posture Lower Extremity Stretches ER/IR bilateral Details at wall Body Position Standing Water Level Chest Level Reps/Duration 45x2 Comments IR manually assisted gastroc Details at wall Body Position Standing Water Level Chest Level Reps/Duration 45x2 hip flexors Details at wall Body Position Standing Water Level Chest Level Reps/Duration 45x2 Comments manual cueing HS, Quad Details at wall Body Position Standing Water Level Chest Level Equipment Small Noodle Reps/Duration 45x2 Upper Extremity Exercises flex/ext, ab,ad Body Position Standing Water Level Chest Level Reps/Duration 10 ea Comments for core stabilization Spinal Exercises spinal stabilization with perturbances Body Position Standing Water Level Chest Level Reps/Duration 3 min Balance weight shifting forward and backward; side to side Body Position Standing Water Level Chest Level Reps/Duration 4 min Comments forward-backward with difficulty PT-OP-T Assessment and Plan Start: 02/02/19 17:43 Freq: Status: Active Protocol: Document 06/07/19 11:25 [facility] (Rec: 06/07/19 12:06 [facility] [id number]) Physical Therapy Assessment Goals gait Retirement Goal (LTG) Pt will be able to walk for 10 min without requiring a rest break. 05/24-limited progress d/t recent surgery LTG Duration 05/06/19 mobility Short Term Goal (STG) Pt will be indep with log roll technique and report less difficulty with getting in and out of bed and rolling in bed . 05/24-improved log roll but still difficult d/t strength STG Duration 06/24/19 Retirement Goal (LTG) Pt will be able to get in and out of a chair without use of UE 05/24-still requires UE LTG Duration 07/23/19 strength Short Term Goal (STG) Pt will be indep with HEP and will be going to gym 2-3x/week . 05/24-achieved prior to surgery on foot, pt is currently ocmpliant with HEP STG Duration 06/12/19 Engine Dynamometer Tester Goal (LTG) Pt will improve LE strength to at least 4+/5 in order to allow pt to return to typical activities and ADLs with greater ease. 05/24-improved LTG Duration 07/23/19 fall risk Short Term Goal (STG) Pt will improve DE LA ROSA score to 35/56 to show dec fall risk with AD. 05/24-improved STG Duration 06/24/19 Engine Dynamometer Tester Goal (LTG) Pt will improve DE LA ROSA score to 50/56 in order to show pt to be less liekly to fall in the community. LTG Duration 07/23/19 Assessment Summary Assessment Pt tolerated some standing exercises with some fatigue in back. Pt was faigued after supine tball exercises. Cont soft tissue thightness especially around scar. Physical Therapy Plan Frequency and Duration Frequency of Treatment 2x/Week Duration of Treatment 2 months Plan of Care Start Date 05/24/19 Plan of Care End Date 07/23/19 Next Visit Focus/Plan Next Note Type Treatment Note Next Visit Plan cont to inc standing tolerance slowly & core & Leg strength
--- NOTE | 2019-06-09 12:09 | PT.OTN ---
Current Diagnoses Polyneuropathy, unspecified (06/09/19) Spinal stenosis, lumbar region without neurogenic claudication (06/09/19) Difficulty in walking, not elsewhere classified (06/09/19) Other abnormalities of gait and mobility (06/09/19) Weakness (06/09/19) Physical Therapy Treatment Note PT-OP-A Visit Information Start: 02/02/19 17:43 Freq: Status: Active Protocol: Document 06/09/19 11:25 [facility] (Rec: 06/09/19 12:09 [facility] [id number]) Out-Patient Physical Therapy Visit Information Visit Information Visit Type Treatment Note Visit Note 10/05 Visit Start Time 11:19 Visit Stop Time 12:09 Total Visit Minutes 50 Visit Number 25 Number of BRAND MARKETING MANAGER Visits 0 PT-OP-B Current Condition Start: 02/02/19 17:43 Freq: Status: Active Protocol: Document 02/03/19 11:22 [facility] (Rec: 02/03/19 12:13 [facility] [id number]) Current Condition History of Current Condition Onset Date >30 year back pain Current Complaints back pain & dec balance History of Current Condition Pt reports he wants to walk around without falling. Pt reports he has 2-3 per month and typically gets momentum fwd and cannot control that so falls fwd. No difference based on terrain. Pt reports history of back pain for 30 years with 2 fusion surgies and a laminectomy the 3rd surgery. Pt has a pain stimulator in his back which helped at first but as he got used it, its been less effective. Pt reprots it was done about 6 years ago. Pt reports he goes 1x.week to the [facility], he gets in the pool. Pt reports PT has been helpful in the past. Pt reports balance has been getting worse of the past year or 2 especially recently. Prior Treatments and Tests multiple bouts of PT, mult shots, mult MRIs Treatment Goals Patient/Caregiver Goals Dec falls, Be able to walk further distances (to car with ease, down driveway), get in and out of chairs easier, get in and out of bed and roll easier PT-OP-C Subjective Start: 02/02/19 17:43 Freq: Status: Active Protocol: Document 06/09/19 11:25 [facility] (Rec: 06/09/19 12:09 [facility] [id number]) OP-PT Subjective Patient Comments Patient Comments Pt reports back felt fine after last session but was fatigued. He was able to vacuum a lot of the house that day. Patient Reported Progress Improving PT-OP-D Balance Start: 02/02/19 17:43 Freq: Status: Active Protocol: Document 05/24/19 08:25 [facility] (Rec: 05/24/19 19:11 [facility] [id number]) Balance Tests De La Rosa Balance Test De La Rosa Balance Test Score 32 PT-OP-F Manual Assessment Start: 02/02/19 17:43 Freq: Status: Active Protocol: Document 02/03/19 11:22 [facility] (Rec: 02/03/19 12:13 [facility] [id number]) Manual Assessments Soft Tissue Assessment Soft Tissue Mobility Assessment significant scar tissue tightness, ES B & QL B tightness PT-OP-G Mobility & Gait Start: 02/02/19 17:43 Freq: Status: Active Protocol: Document 02/03/19 11:22 [facility] (Rec: 02/03/19 12:13 [facility] [id number]) OP Gait Assessment Comments Gait Comments Pt amb with SPC with B lat leaning & fwd leaning. Dec overall push off PT-OP-M Strength Start: 02/02/19 17:43 Freq: Status: Active Protocol: Document 05/24/19 08:25 [facility] (Rec: 05/24/19 19:11 [facility] [id number]) Hip Strength Hip Manual Muscle Testing Left Flexion (L2) 4- Good- Extension (S1) 3+ Fair+ Abduction 3+ Fair+ External Rotation 4- Good- Internal Rotation 4- Good- Right Flexion (L2) 4 Good Extension (S1) 3 Fair Abduction 4 Good External Rotation 4+ Good+ Internal Rotation 4 Good Knee Strength Knee Manual Muscle Testing Left Flexion (S2) 4+ Good+ Extension (L3) 4+ Good+ Right Flexion (S2) 4+ Good+ Extension (L3) 4 Good Ankle/Foot Strength Ankle and Foot Manual Muscle Testing Left Dorsiflexion (L4) 5 Normal Plantarflexion (S1) 4 Good Right Dorsiflexion (L4) 5 Normal Plantarflexion (S1) 4 Good Comments seated PF testing PT-OP-Q Treatments Start: 02/02/19 17:43 Freq: Status: Active Protocol: Document 06/09/19 11:25 [facility] (Rec: 06/09/19 12:09 [facility] [id number]) Cardio Equipment Recumbent Stepper (Sci-Fit) Duration (Minutes) 8 Resistance 5 Seat Position 11 Gym Equipment Therapeutic Ball bridge Ball Size/Color 55cm` Body Position Supine Reps/Duration 20 Comments calves on ball knee flex Ball Size/Color 55cm Body Position Supine Reps/Duration 20 Comments focus on core LTR Ball Size/Color 55cm Body Position Supine Reps/Duration 20 Manual Therapy Treatment Soft Tissue Mobilization Scar tissue Body Location lumbar scar tissue & ES & QL Mobilization Type Myofascial Release,Rolling, Sustained Pressure Intensity/Depth Moderate Body Position Sidelying Neuro Re-Education Treatment Balance Activities foam pad Details reg BRENNON & NBOS tpads Details staggered stance B Surface blue PT-OP-R Modalities Start: 02/02/19 17:43 Freq: Status: Active Protocol: Document 06/09/19 11:25 [facility] (Rec: 06/09/19 12:09 [facility] [id number]) Hot Pack/Cold Pack Treatment Cold Pack Location lumbar Patient Position Sidelying Treatment Duration (minutes) 10 Patient Tolerance Good PT-OP-S Aquatic Treatment Start: 02/26/19 16:08 Freq: Status: Active Protocol: Document 04/12/19 10:15 [facility] (Rec: 04/12/19 16:04 [facility] [id number]) Aquatics Treatment Pool Entry/Exit Pool Entry/Exit Method Stairs Assistance Independent Water Walking stop/start/stabilize Water Level Chest Level Walking Equipment Ankle Weight- 2.5# Level of Assistance Standby Assistance,Contact Guard Assistance,Minimal Assistance,Verbal Cues Comments forward and sideways directional changes Water Level Chest Level Walking Equipment Ankle Weight- 2.5# Level of Assistance Standby Assistance,Contact Guard Assistance,Minimal Assistance,Verbal Cues Marching Water Level Chest Level Walking Equipment Ankle Weight- 2.5# Level of Assistance Standby Assistance,Contact Guard Assistance,Minimal Assistance,Verbal Cues Comments HAdd HAbd arms Backwards Water Level Chest Level Walking Equipment Ankle Weight- 2.5# Level of Assistance Standby Assistance,Minimal Assistance,Moderate Assistance ,Verbal Cues Comments BS arms Sideways Water Level Chest Level Walking Equipment Ankle Weight- 2.5# Level of Assistance Standby Assistance,Contact Guard Assistance Comments abd add arms simultaneous with LE action Forwards Water Level Chest Level Walking Equipment Ankle Weight- 2.5# Level of Assistance Standby Assistance,Verbal Cues Comments several LOB Lower Extremity Exercises hip figure 8 Details at wall Body Position Standing Water Level Chest Level Reps/Duration 8 bilat Comments pt requires manual assist step ups on boxes Details forward and sideways Water Level Waist Level Equipment [place] Float Reps/Duration 8 min Comments many LOBs; various size boxes hip ab/ad Body Position Standing Water Level Chest Level Reps/Duration 2x10 Comments hh on wall hip flex/ext Body Position Standing Water Level Chest Level Reps/Duration 2x10 Comments hh on wall squats on box Details muscle sequence activation- [id number] Water Level Chest Level Equipment Ankle Weight- 2.5# Reps/Duration 4 Comments hh on wall; good posture Lower Extremity Stretches ER/IR bilateral Details at wall Body Position Standing Water Level Chest Level Reps/Duration 45x2 Comments IR manually assisted gastroc Details at wall Body Position Standing Water Level Chest Level Reps/Duration 45x2 hip flexors Details at wall Body Position Standing Water Level Chest Level Reps/Duration 45x2 Comments manual cueing HS, Quad Details at wall Body Position Standing Water Level Chest Level Equipment Small Noodle Reps/Duration 45x2 Upper Extremity Exercises flex/ext, ab,ad Body Position Standing Water Level Chest Level Reps/Duration 10 ea Comments for core stabilization Spinal Exercises spinal stabilization with perturbances Body Position Standing Water Level Chest Level Reps/Duration 3 min Balance weight shifting forward and backward; side to side Body Position Standing Water Level Chest Level Reps/Duration 4 min Comments forward-backward with difficulty PT-OP-T Assessment and Plan Start: 02/02/19 17:43 Freq: Status: Active Protocol: Document 06/09/19 11:25 [facility] (Rec: 06/09/19 12:09 [facility] [id number]) Physical Therapy Assessment Goals gait Cloth Mercerizer Operator Goal (LTG) Pt will be able to walk for 10 min without requiring a rest break. 05/24-limited progress d/t recent surgery LTG Duration 05/06/19 mobility Short Term Goal (STG) Pt will be indep with log roll technique and report less difficulty with getting in and out of bed and rolling in bed . 05/24-improved log roll but still difficult d/t strength STG Duration 06/24/19 Longterm Goal (LTG) Pt will be able to get in and out of a chair without use of UE 05/24-still requires UE LTG Duration 07/23/19 strength Short Term Goal (STG) Pt will be indep with HEP and will be going to gym 2-3x/week . 05/24-achieved prior to surgery on foot, pt is currently ocmpliant with HEP STG Duration 06/12/19 Longterm Goal (LTG) Pt will improve LE strength to at least 4+/5 in order to allow pt to return to typical activities and ADLs with greater ease. 05/24-improved LTG Duration 07/23/19 fall risk Short Term Goal (STG) Pt will improve DE LA ROSA score to 35/56 to show dec fall risk with AD. 05/24-improved STG Duration 06/24/19 Cloth Mercerizer Operator Goal (LTG) Pt will improve DE LA ROSA score to 50/56 in order to show pt to be less liekly to fall in the community. LTG Duration 07/23/19 Assessment Summary Assessment Pt cont to tolerate small bits of standing exercises, but spent more time today in standing than last session. He did beter with supine exercises with less fatigue. Physical Therapy Plan Frequency and Duration Frequency of Treatment 2x/Week Duration of Treatment 2 months Plan of Care Start Date 05/24/19 Plan of Care End Date 07/23/19 Next Visit Focus/Plan Next Note Type Treatment Note Next Visit Plan cont to inc standing tolerance slowly & core & Leg strength
--- NOTE | 2019-06-14 12:03 | PT.OTN ---
Current Diagnoses Polyneuropathy, unspecified (06/14/19) Spinal stenosis, lumbar region without neurogenic claudication (06/14/19) Difficulty in walking, not elsewhere classified (06/14/19) Other abnormalities of gait and mobility (06/14/19) Weakness (06/14/19) Physical Therapy Treatment Note PT-OP-A Visit Information Start: 02/02/19 17:43 Freq: Status: Active Protocol: Document 06/14/19 11:22 [facility] (Rec: 06/14/19 12:03 [facility] [id number]) Out-Patient Physical Therapy Visit Information Visit Information Visit Type Treatment Note Visit Note 11/04 Visit Start Time 11:17 Visit Stop Time 12:07 Total Visit Minutes 50 Visit Number 26 Number of POWER ELECTRONICS RESEARCH ENGINEER Visits 0 PT-OP-B Current Condition Start: 02/02/19 17:43 Freq: Status: Active Protocol: Document 02/03/19 11:22 [facility] (Rec: 02/03/19 12:13 [facility] [id number]) Current Condition History of Current Condition Onset Date >30 year back pain Current Complaints back pain & dec balance History of Current Condition Pt reports he wants to walk around without falling. Pt reports he has 2-3 per month and typically gets momentum fwd and cannot control that so falls fwd. No difference based on terrain. Pt reports history of back pain for 30 years with 2 fusion surgies and a laminectomy the 3rd surgery. Pt has a pain stimulator in his back which helped at first but as he got used it, its been less effective. Pt reprots it was done about 6 years ago. Pt reports he goes 1x.week to the [facility], he gets in the pool. Pt reports PT has been helpful in the past. Pt reports balance has been getting worse of the past year or 2 especially recently. Prior Treatments and Tests multiple bouts of PT, mult shots, mult MRIs Treatment Goals Patient/Caregiver Goals Dec falls, Be able to walk further distances (to car with ease, down driveway), get in and out of chairs easier, get in and out of bed and roll easier PT-OP-C Subjective Start: 02/02/19 17:43 Freq: Status: Active Protocol: Document 06/14/19 11:22 [facility] (Rec: 06/14/19 12:03 [facility] [id number]) OP-PT Subjective Patient Comments Patient Comments Pt reprots doing well today PT-OP-D Balance Start: 02/02/19 17:43 Freq: Status: Active Protocol: Document 05/24/19 08:25 [facility] (Rec: 05/24/19 19:11 [facility] [id number]) Balance Tests De La Rosa Balance Test De La Rosa Balance Test Score 32 PT-OP-F Manual Assessment Start: 02/02/19 17:43 Freq: Status: Active Protocol: Document 02/03/19 11:22 [facility] (Rec: 02/03/19 12:13 [facility] [id number]) Manual Assessments Soft Tissue Assessment Soft Tissue Mobility Assessment significant scar tissue tightness, ES B & QL B tightness PT-OP-G Mobility & Gait Start: 02/02/19 17:43 Freq: Status: Active Protocol: Document 02/03/19 11:22 [facility] (Rec: 02/03/19 12:13 [facility] [id number]) OP Gait Assessment Comments Gait Comments Pt amb with SPC with B lat leaning & fwd leaning. Dec overall push off PT-OP-M Strength Start: 02/02/19 17:43 Freq: Status: Active Protocol: Document 05/24/19 08:25 [facility] (Rec: 05/24/19 19:11 [facility] [id number]) Hip Strength Hip Manual Muscle Testing Left Flexion (L2) 4- Good- Extension (S1) 3+ Fair+ Abduction 3+ Fair+ External Rotation 4- Good- Internal Rotation 4- Good- Right Flexion (L2) 4 Good Extension (S1) 3 Fair Abduction 4 Good External Rotation 4+ Good+ Internal Rotation 4 Good Knee Strength Knee Manual Muscle Testing Left Flexion (S2) 4+ Good+ Extension (L3) 4+ Good+ Right Flexion (S2) 4+ Good+ Extension (L3) 4 Good Ankle/Foot Strength Ankle and Foot Manual Muscle Testing Left Dorsiflexion (L4) 5 Normal Plantarflexion (S1) 4 Good Right Dorsiflexion (L4) 5 Normal Plantarflexion (S1) 4 Good Comments seated PF testing PT-OP-Q Treatments Start: 02/02/19 17:43 Freq: Status: Active Protocol: Document 06/14/19 11:22 [facility] (Rec: 06/14/19 12:03 [facility] [id number]) Cardio Equipment Recumbent Stepper (Sci-Fit) Duration (Minutes) 7 Resistance 5 Seat Position 11 Gym Equipment Therapeutic Ball bridge Ball Size/Color 55cm` Body Position Supine Reps/Duration 20 Comments calves on ball knee flex Ball Size/Color 55cm Body Position Supine Reps/Duration 20 Comments focus on core LTR Ball Size/Color 55cm Body Position Supine Reps/Duration 20 Manual Therapy Treatment Soft Tissue Mobilization Scar tissue Body Location lumbar scar tissue & ES & QL Mobilization Type Myofascial Release,Rolling, Sustained Pressure Intensity/Depth Moderate Body Position Sidelying Neuro Re-Education Treatment Balance Activities balance board Details side Comments 1. balance 2. wt shifts side<>side staggered stance Details B Comments w/head turns foam pad Details reg BRENNON & NBOS Comments head turns B as able tpads Details staggered stance B Surface blue fwd/black back PT-OP-R Modalities Start: 02/02/19 17:43 Freq: Status: Active Protocol: Document 06/14/19 11:22 [facility] (Rec: 06/14/19 12:03 [facility] [id number]) Hot Pack/Cold Pack Treatment Cold Pack Location lumbar Patient Position Sidelying Treatment Duration (minutes) 10 Patient Tolerance Good PT-OP-S Aquatic Treatment Start: 02/26/19 16:08 Freq: Status: Active Protocol: Document 04/12/19 10:15 [facility] (Rec: 04/12/19 16:04 [facility] [id number]) Aquatics Treatment Pool Entry/Exit Pool Entry/Exit Method Stairs Assistance Independent Water Walking stop/start/stabilize Water Level Chest Level Walking Equipment Ankle Weight- 2.5# Level of Assistance Standby Assistance,Contact Guard Assistance,Minimal Assistance,Verbal Cues Comments forward and sideways directional changes Water Level Chest Level Walking Equipment Ankle Weight- 2.5# Level of Assistance Standby Assistance,Contact Guard Assistance,Minimal Assistance,Verbal Cues Marching Water Level Chest Level Walking Equipment Ankle Weight- 2.5# Level of Assistance Standby Assistance,Contact Guard Assistance,Minimal Assistance,Verbal Cues Comments HAdd HAbd arms Backwards Water Level Chest Level Walking Equipment Ankle Weight- 2.5# Level of Assistance Standby Assistance,Minimal Assistance,Moderate Assistance ,Verbal Cues Comments BS arms Sideways Water Level Chest Level Walking Equipment Ankle Weight- 2.5# Level of Assistance Standby Assistance,Contact Guard Assistance Comments abd add arms simultaneous with LE action Forwards Water Level Chest Level Walking Equipment Ankle Weight- 2.5# Level of Assistance Standby Assistance,Verbal Cues Comments several LOB Lower Extremity Exercises hip figure 8 Details at wall Body Position Standing Water Level Chest Level Reps/Duration 8 bilat Comments pt requires manual assist step ups on boxes Details forward and sideways Water Level Waist Level Equipment [place] Float Reps/Duration 8 min Comments many LOBs; various size boxes hip ab/ad Body Position Standing Water Level Chest Level Reps/Duration 2x10 Comments hh on wall hip flex/ext Body Position Standing Water Level Chest Level Reps/Duration 2x10 Comments hh on wall squats on box Details muscle sequence activation- [id number] Water Level Chest Level Equipment Ankle Weight- 2.5# Reps/Duration 4 Comments hh on wall; good posture Lower Extremity Stretches ER/IR bilateral Details at wall Body Position Standing Water Level Chest Level Reps/Duration 45x2 Comments IR manually assisted gastroc Details at wall Body Position Standing Water Level Chest Level Reps/Duration 45x2 hip flexors Details at wall Body Position Standing Water Level Chest Level Reps/Duration 45x2 Comments manual cueing HS, Quad Details at wall Body Position Standing Water Level Chest Level Equipment Small Noodle Reps/Duration 45x2 Upper Extremity Exercises flex/ext, ab,ad Body Position Standing Water Level Chest Level Reps/Duration 10 ea Comments for core stabilization Spinal Exercises spinal stabilization with perturbances Body Position Standing Water Level Chest Level Reps/Duration 3 min Balance weight shifting forward and backward; side to side Body Position Standing Water Level Chest Level Reps/Duration 4 min Comments forward-backward with difficulty PT-OP-T Assessment and Plan Start: 02/02/19 17:43 Freq: Status: Active Protocol: Document 06/14/19 11:22 [facility] (Rec: 06/14/19 12:03 [facility] [id number]) Physical Therapy Assessment Goals gait Assisted Goal (LTG) Pt will be able to walk for 10 min without requiring a rest break. 05/24-limited progress d/t recent surgery LTG Duration 05/06/19 mobility Short Term Goal (STG) Pt will be indep with log roll technique and report less difficulty with getting in and out of bed and rolling in bed . 05/24-improved log roll but still difficult d/t strength STG Duration 06/24/19 Periodontal Assistant Goal (LTG) Pt will be able to get in and out of a chair without use of UE 05/24-still requires UE LTG Duration 07/23/19 strength Short Term Goal (STG) Pt will be indep with HEP and will be going to gym 2-3x/week . 05/24-achieved prior to surgery on foot, pt is currently ocmpliant with HEP STG Duration 06/12/19 Periodontal Assistant Goal (LTG) Pt will improve LE strength to at least 4+/5 in order to allow pt to return to typical activities and ADLs with greater ease. 05/24-improved LTG Duration 07/23/19 fall risk Short Term Goal (STG) Pt will improve DE LA ROSA score to 35/56 to show dec fall risk with AD. 05/24-improved STG Duration 06/24/19 Periodontal Assistant Goal (LTG) Pt will improve DE LA ROSA score to 50/56 in order to show pt to be less liekly to fall in the community. LTG Duration 07/23/19 Assessment Summary Assessment Pt was able to do ball bridges with heels on ball vs calves today. Improved perofamnce balance activities and less reported pain. COnt to feel relief with STM Physical Therapy Plan Frequency and Duration Frequency of Treatment 2x/Week Duration of Treatment 2 months Plan of Care Start Date 05/24/19 Plan of Care End Date 07/23/19 Next Visit Focus/Plan Next Note Type Treatment Note Next Visit Plan cont to inc standing tolerance slowly & core & Leg strength
--- NOTE | 2019-06-16 18:47 | PT.OTN ---
Current Diagnoses Polyneuropathy, unspecified (06/16/19) Spinal stenosis, lumbar region without neurogenic claudication (06/16/19) Difficulty in walking, not elsewhere classified (06/16/19) Other abnormalities of gait and mobility (06/16/19) Weakness (06/16/19) Physical Therapy Treatment Note PT-OP-A Visit Information Start: 02/02/19 17:43 Freq: Status: Active Protocol: Document 06/16/19 12:15 SP (Rec: 06/16/19 18:27 SP [id number]) Out-Patient Physical Therapy Visit Information Visit Information Visit Type Treatment Note Visit Note 12/05 Visit Start Time 11:20 Visit Stop Time 12:10 Total Visit Minutes 50 Visit Number 27 Number of INDUSTRIAL COOK Visits 0 PT-OP-B Current Condition Start: 02/02/19 17:43 Freq: Status: Active Protocol: Document 02/03/19 11:22 [facility] (Rec: 02/03/19 12:13 [facility] [id number]) Current Condition History of Current Condition Onset Date >30 year back pain Current Complaints back pain & dec balance History of Current Condition Pt reports he wants to walk around without falling. Pt reports he has 2-3 per month and typically gets momentum fwd and cannot control that so falls fwd. No difference based on terrain. Pt reports history of back pain for 30 years with 2 fusion surgies and a laminectomy the 3rd surgery. Pt has a pain stimulator in his back which helped at first but as he got used it, its been less effective. Pt reprots it was done about 6 years ago. Pt reports he goes 1x.week to the [facility], he gets in the pool. Pt reports PT has been helpful in the past. Pt reports balance has been getting worse of the past year or 2 especially recently. Prior Treatments and Tests multiple bouts of PT, mult shots, mult MRIs Treatment Goals Patient/Caregiver Goals Dec falls, Be able to walk further distances (to car with ease, down driveway), get in and out of chairs easier, get in and out of bed and roll easier PT-OP-C Subjective Start: 02/02/19 17:43 Freq: Status: Active Protocol: Document 06/16/19 12:15 SP (Rec: 06/16/19 12:21 SP [id number]) OP-PT Subjective Patient Comments Patient Comments Pt states he is feeling tired today, more than usual. He did not exercise yesterday due to fatigue. Pt felt dizzy this morning when completing LTR however thinks it could have been due to not breathing properly through the exercise. PT-OP-D Balance Start: 02/02/19 17:43 Freq: Status: Active Protocol: Document 05/24/19 08:25 [facility] (Rec: 05/24/19 19:11 [facility] [id number]) Balance Tests De La Rosa Balance Test De La Rosa Balance Test Score 32 PT-OP-F Manual Assessment Start: 02/02/19 17:43 Freq: Status: Active Protocol: Document 02/03/19 11:22 [facility] (Rec: 02/03/19 12:13 [facility] [id number]) Manual Assessments Soft Tissue Assessment Soft Tissue Mobility Assessment significant scar tissue tightness, ES B & QL B tightness PT-OP-G Mobility & Gait Start: 02/02/19 17:43 Freq: Status: Active Protocol: Document 02/03/19 11:22 [facility] (Rec: 02/03/19 12:13 [facility] [id number]) OP Gait Assessment Comments Gait Comments Pt amb with SPC with B lat leaning & fwd leaning. Dec overall push off PT-OP-M Strength Start: 02/02/19 17:43 Freq: Status: Active Protocol: Document 05/24/19 08:25 [facility] (Rec: 05/24/19 19:11 [facility] [id number]) Hip Strength Hip Manual Muscle Testing Left Flexion (L2) 4- Good- Extension (S1) 3+ Fair+ Abduction 3+ Fair+ External Rotation 4- Good- Internal Rotation 4- Good- Right Flexion (L2) 4 Good Extension (S1) 3 Fair Abduction 4 Good External Rotation 4+ Good+ Internal Rotation 4 Good Knee Strength Knee Manual Muscle Testing Left Flexion (S2) 4+ Good+ Extension (L3) 4+ Good+ Right Flexion (S2) 4+ Good+ Extension (L3) 4 Good Ankle/Foot Strength Ankle and Foot Manual Muscle Testing Left Dorsiflexion (L4) 5 Normal Plantarflexion (S1) 4 Good Right Dorsiflexion (L4) 5 Normal Plantarflexion (S1) 4 Good Comments seated PF testing PT-OP-Q Treatments Start: 02/02/19 17:43 Freq: Status: Active Protocol: Document 06/16/19 12:15 SP (Rec: 06/16/19 12:21 SP [id number]) Cardio Equipment Recumbent Stepper (Sci-Fit) Duration (Minutes) 6 Resistance 5 Seat Position 11 Therapeutic Exercises Supine Exercises LTR Side bilateral Reps/Minutes 10 Comments focus on breathing and core bridge Side bilateral Reps/Minutes 15 Comments with arms in the air Manual Therapy Treatment Soft Tissue Mobilization Scar tissue Body Location lumbar scar tissue & ES & QL Mobilization Type Myofascial Release,Sustained Pressure Intensity/Depth Moderate Body Position Sidelying Neuro Re-Education Treatment Balance Activities foam pad Details reg BRENNON & NBOS Comments head turns B as able EC tpads Details staggered stance B Surface blue/blue PT-OP-R Modalities Start: 02/02/19 17:43 Freq: Status: Active Protocol: Document 06/16/19 18:25 SP (Rec: 06/16/19 18:26 SP [id number]) Hot Pack/Cold Pack Treatment Cold Pack Location lumbar Patient Position Sidelying Treatment Duration (minutes) 10 Patient Tolerance Good PT-OP-S Aquatic Treatment Start: 02/26/19 16:08 Freq: Status: Active Protocol: Document 04/12/19 10:15 LJ (Rec: 04/12/19 16:04 LJ [id number]) Aquatics Treatment Pool Entry/Exit Pool Entry/Exit Method Stairs Assistance Independent Water Walking stop/start/stabilize Water Level Chest Level Walking Equipment Ankle Weight- 2.5# Level of Assistance Standby Assistance,Contact Guard Assistance,Minimal Assistance,Verbal Cues Comments forward and sideways directional changes Water Level Chest Level Walking Equipment Ankle Weight- 2.5# Level of Assistance Standby Assistance,Contact Guard Assistance,Minimal Assistance,Verbal Cues Marching Water Level Chest Level Walking Equipment Ankle Weight- 2.5# Level of Assistance Standby Assistance,Contact Guard Assistance,Minimal Assistance,Verbal Cues Comments HAdd HAbd arms Backwards Water Level Chest Level Walking Equipment Ankle Weight- 2.5# Level of Assistance Standby Assistance,Minimal Assistance,Moderate Assistance ,Verbal Cues Comments BS arms Sideways Water Level Chest Level Walking Equipment Ankle Weight- 2.5# Level of Assistance Standby Assistance,Contact Guard Assistance Comments abd add arms simultaneous with LE action Forwards Water Level Chest Level Walking Equipment Ankle Weight- 2.5# Level of Assistance Standby Assistance,Verbal Cues Comments several LOB Lower Extremity Exercises hip figure 8 Details at wall Body Position Standing Water Level Chest Level Reps/Duration 8 bilat Comments pt requires manual assist step ups on boxes Details forward and sideways Water Level Waist Level Equipment [place] Float Reps/Duration 8 min Comments many LOBs; various size boxes hip ab/ad Body Position Standing Water Level Chest Level Reps/Duration 2x10 Comments hh on wall hip flex/ext Body Position Standing Water Level Chest Level Reps/Duration 2x10 Comments hh on wall squats on box Details muscle sequence activation- [id number] Water Level Chest Level Equipment Ankle Weight- 2.5# Reps/Duration 4 Comments hh on wall; good posture Lower Extremity Stretches ER/IR bilateral Details at wall Body Position Standing Water Level Chest Level Reps/Duration 45x2 Comments IR manually assisted gastroc Details at wall Body Position Standing Water Level Chest Level Reps/Duration 45x2 hip flexors Details at wall Body Position Standing Water Level Chest Level Reps/Duration 45x2 Comments manual cueing HS, Quad Details at wall Body Position Standing Water Level Chest Level Equipment Small Noodle Reps/Duration 45x2 Upper Extremity Exercises flex/ext, ab,ad Body Position Standing Water Level Chest Level Reps/Duration 10 ea Comments for core stabilization Spinal Exercises spinal stabilization with perturbances Body Position Standing Water Level Chest Level Reps/Duration 3 min Balance weight shifting forward and backward; side to side Body Position Standing Water Level Chest Level Reps/Duration 4 min Comments forward-backward with difficulty PT-OP-T Assessment and Plan Start: 02/02/19 17:43 Freq: Status: Active Protocol: Document 06/16/19 12:15 SP (Rec: 06/16/19 18:24 SP [id number]) Physical Therapy Assessment Goals gait Custodial Goal (LTG) Pt will be able to walk for 10 min without requiring a rest break. 05/24-limited progress d/t recent surgery LTG Duration 05/06/19 mobility Short Term Goal (STG) Pt will be indep with log roll technique and report less difficulty with getting in and out of bed and rolling in bed . 05/24-improved log roll but still difficult d/t strength STG Duration 06/24/19 Wood Grinder Goal (LTG) Pt will be able to get in and out of a chair without use of UE 05/24-still requires UE LTG Duration 07/23/19 strength Short Term Goal (STG) Pt will be indep with HEP and will be going to gym 2-3x/week . 05/24-achieved prior to surgery on foot, pt is currently ocmpliant with HEP STG Duration 06/12/19 Wood Grinder Goal (LTG) Pt will improve LE strength to at least 4+/5 in order to allow pt to return to typical activities and ADLs with greater ease. 05/24-improved LTG Duration 07/23/19 fall risk Short Term Goal (STG) Pt will improve DE LA ROSA score to 35/56 to show dec fall risk with AD. 05/24-improved STG Duration 06/24/19 Wood Grinder Goal (LTG) Pt will improve DE LA ROSA score to 50/56 in order to show pt to be less liekly to fall in the community. LTG Duration 07/23/19 Assessment Summary Assessment Pt was able to complete all balance activities with contact-guard. Pt demonstrated increased sway with feet staggered on tpads and performing head turns. He needed verbal cueing for upright posture. Pt demonstrated proper breathing technique when reviewing LTR. Spent extra time during neuro re-ed in order for pt to increase activity tolerance with standing balance and for improving balance when pt is fatigued. Physical Therapy Plan Frequency and Duration Frequency of Treatment 2x/Week Duration of Treatment 2 months Plan of Care Start Date 05/24/19 Plan of Care End Date 07/23/19 Next Visit Focus/Plan Next Note Type Treatment Note Next Visit Plan begin dynamic balance
--- NOTE | 2019-06-21 13:41 | PT.OTN ---
Current Diagnoses Polyneuropathy, unspecified (06/21/19) Spinal stenosis, lumbar region without neurogenic claudication (06/21/19) Difficulty in walking, not elsewhere classified (06/21/19) Other abnormalities of gait and mobility (06/21/19) Weakness (06/21/19) Physical Therapy Treatment Note PT-OP-A Visit Information Start: 02/02/19 17:43 Freq: Status: Active Protocol: Document 06/21/19 13:07 SP (Rec: 06/21/19 13:28 SP [id number]) Out-Patient Physical Therapy Visit Information Visit Information Visit Type Treatment Note Visit Note 01/05 Visit Start Time 11:20 Visit Stop Time 12:09 Total Visit Minutes 49 Visit Number 28 Number of SUPPLEMENTAL NURSE Visits 0 PT-OP-B Current Condition Start: 02/02/19 17:43 Freq: Status: Active Protocol: Document 02/03/19 11:22 [facility] (Rec: 02/03/19 12:13 [facility] [id number]) Current Condition History of Current Condition Onset Date >30 year back pain Current Complaints back pain & dec balance History of Current Condition Pt reports he wants to walk around without falling. Pt reports he has 2-3 per month and typically gets momentum fwd and cannot control that so falls fwd. No difference based on terrain. Pt reports history of back pain for 30 years with 2 fusion surgies and a laminectomy the 3rd surgery. Pt has a pain stimulator in his back which helped at first but as he got used it, its been less effective. Pt reprots it was done about 6 years ago. Pt reports he goes 1x.week to the [facility], he gets in the pool. Pt reports PT has been helpful in the past. Pt reports balance has been getting worse of the past year or 2 especially recently. Prior Treatments and Tests multiple bouts of PT, mult shots, mult MRIs Treatment Goals Patient/Caregiver Goals Dec falls, Be able to walk further distances (to car with ease, down driveway), get in and out of chairs easier, get in and out of bed and roll easier PT-OP-C Subjective Start: 02/02/19 17:43 Freq: Status: Active Protocol: Document 06/21/19 13:07 SP (Rec: 06/21/19 13:24 SP [id number]) OP-PT Subjective Patient Comments Patient Comments Pt reports that he has not been sleeping well. He has not completed his home exercises the last few days due to increased fatigue. Pt felt more wobbly over the weekend and experienced a [facility] He notes that his blood pressure has been normal. Pt c /o increased pain in the left hip. PT-OP-D Balance Start: 02/02/19 17:43 Freq: Status: Active Protocol: Document 05/24/19 08:25 [facility] (Rec: 05/24/19 19:11 [facility] [id number]) Balance Tests De La Rosa Balance Test De La Rosa Balance Test Score 32 PT-OP-F Manual Assessment Start: 02/02/19 17:43 Freq: Status: Active Protocol: Document 02/03/19 11:22 [facility] (Rec: 02/03/19 12:13 [facility] [id number]) Manual Assessments Soft Tissue Assessment Soft Tissue Mobility Assessment significant scar tissue tightness, ES B & QL B tightness PT-OP-G Mobility & Gait Start: 02/02/19 17:43 Freq: Status: Active Protocol: Document 02/03/19 11:22 [facility] (Rec: 02/03/19 12:13 [facility] [id number]) OP Gait Assessment Comments Gait Comments Pt amb with SPC with B lat leaning & fwd leaning. Dec overall push off PT-OP-M Strength Start: 02/02/19 17:43 Freq: Status: Active Protocol: Document 05/24/19 08:25 [facility] (Rec: 05/24/19 19:11 [facility] [id number]) Hip Strength Hip Manual Muscle Testing Left Flexion (L2) 4- Good- Extension (S1) 3+ Fair+ Abduction 3+ Fair+ External Rotation 4- Good- Internal Rotation 4- Good- Right Flexion (L2) 4 Good Extension (S1) 3 Fair Abduction 4 Good External Rotation 4+ Good+ Internal Rotation 4 Good Knee Strength Knee Manual Muscle Testing Left Flexion (S2) 4+ Good+ Extension (L3) 4+ Good+ Right Flexion (S2) 4+ Good+ Extension (L3) 4 Good Ankle/Foot Strength Ankle and Foot Manual Muscle Testing Left Dorsiflexion (L4) 5 Normal Plantarflexion (S1) 4 Good Right Dorsiflexion (L4) 5 Normal Plantarflexion (S1) 4 Good Comments seated PF testing PT-OP-Q Treatments Start: 02/02/19 17:43 Freq: Status: Active Protocol: Document 06/21/19 13:07 SP (Rec: 06/21/19 13:24 SP [email or web address]) Cardio Equipment Recumbent Stepper (Sci-Fit) Duration (Minutes) 6 Resistance 5 Seat Position 11 Manual Therapy Treatment Soft Tissue Mobilization IT band Body Location L IT band Mobilization Type Strumming,Sustained Pressure Intensity/Depth Moderate Body Position Sidelying Comments Increased tissue density mid- IT band Joint Mobilizations hip Joint left hip Direction posterior Grade III Body Position Supine Neuro Re-Education Treatment Balance Activities balance board Details side and fwd/back Comments 1. balance 2. wt shifts side to side and fwd/back tpads Details staggered stance B Surface blue/blue Comments with head turns PT-OP-R Modalities Start: 02/02/19 17:43 Freq: Status: Active Protocol: Document 06/21/19 13:07 SP (Rec: 06/21/19 13:28 SP [email or web address]) Hot Pack/Cold Pack Treatment Cold Pack Location lumbar Patient Position Sidelying Treatment Duration (minutes) 10 Patient Tolerance Good PT-OP-S Aquatic Treatment Start: 02/26/19 16:08 Freq: Status: Active Protocol: Document 04/12/19 10:15 LJ (Rec: 04/12/19 16:04 LJ [id number]) Aquatics Treatment Pool Entry/Exit Pool Entry/Exit Method Stairs Assistance Independent Water Walking stop/start/stabilize Water Level Chest Level Walking Equipment Ankle Weight- 2.5# Level of Assistance Standby Assistance,Contact Guard Assistance,Minimal Assistance,Verbal Cues Comments forward and sideways directional changes Water Level Chest Level Walking Equipment Ankle Weight- 2.5# Level of Assistance Standby Assistance,Contact Guard Assistance,Minimal Assistance,Verbal Cues Marching Water Level Chest Level Walking Equipment Ankle Weight- 2.5# Level of Assistance Standby Assistance,Contact Guard Assistance,Minimal Assistance,Verbal Cues Comments HAdd HAbd arms Backwards Water Level Chest Level Walking Equipment Ankle Weight- 2.5# Level of Assistance Standby Assistance,Minimal Assistance,Moderate Assistance ,Verbal Cues Comments BS arms Sideways Water Level Chest Level Walking Equipment Ankle Weight- 2.5# Level of Assistance Standby Assistance,Contact Guard Assistance Comments abd add arms simultaneous with LE action Forwards Water Level Chest Level Walking Equipment Ankle Weight- 2.5# Level of Assistance Standby Assistance,Verbal Cues Comments several LOB Lower Extremity Exercises hip figure 8 Details at wall Body Position Standing Water Level Chest Level Reps/Duration 8 bilat Comments pt requires manual assist step ups on boxes Details forward and sideways Water Level Waist Level Equipment [place] Float Reps/Duration 8 min Comments many LOBs; various size boxes hip ab/ad Body Position Standing Water Level Chest Level Reps/Duration 2x10 Comments hh on wall hip flex/ext Body Position Standing Water Level Chest Level Reps/Duration 2x10 Comments hh on wall squats on box Details muscle sequence activation- [id number] Water Level Chest Level Equipment Ankle Weight- 2.5# Reps/Duration 4 Comments hh on wall; good posture Lower Extremity Stretches ER/IR bilateral Details at wall Body Position Standing Water Level Chest Level Reps/Duration 45x2 Comments IR manually assisted gastroc Details at wall Body Position Standing Water Level Chest Level Reps/Duration 45x2 hip flexors Details at wall Body Position Standing Water Level Chest Level Reps/Duration 45x2 Comments manual cueing HS, Quad Details at wall Body Position Standing Water Level Chest Level Equipment Small Noodle Reps/Duration 45x2 Upper Extremity Exercises flex/ext, ab,ad Body Position Standing Water Level Chest Level Reps/Duration 10 ea Comments for core stabilization Spinal Exercises spinal stabilization with perturbances Body Position Standing Water Level Chest Level Reps/Duration 3 min Balance weight shifting forward and backward; side to side Body Position Standing Water Level Chest Level Reps/Duration 4 min Comments forward-backward with difficulty PT-OP-T Assessment and Plan Start: 02/02/19 17:43 Freq: Status: Active Protocol: Document 06/21/19 13:07 SP (Rec: 06/21/19 13:24 SP [email or web address]) Physical Therapy Assessment Goals gait Precast Molder Goal (LTG) Pt will be able to walk for 10 min without requiring a rest break. 05/24-limited progress d/t recent surgery LTG Duration 05/06/19 mobility Short Term Goal (STG) Pt will be indep with log roll technique and report less difficulty with getting in and out of bed and rolling in bed . 05/24-improved log roll but still difficult d/t strength STG Duration 06/24/19 Precast Molder Goal (LTG) Pt will be able to get in and out of a chair without use of UE 05/24-still requires UE LTG Duration 07/23/19 strength Short Term Goal (STG) Pt will be indep with HEP and will be going to gym 2-3x/week . 05/24-achieved prior to surgery on foot, pt is currently ocmpliant with HEP STG Duration 06/12/19 Precast Molder Goal (LTG) Pt will improve LE strength to at least 4+/5 in order to allow pt to return to typical activities and ADLs with greater ease. 05/24-improved LTG Duration 07/23/19 fall risk Short Term Goal (STG) Pt will improve DE LA ROSA score to 35/56 to show dec fall risk with AD. 05/24-improved STG Duration 06/24/19 Mcfp Goal (LTG) Pt will improve DE LA ROSA score to 50/56 in order to show pt to be less liekly to fall in the community. LTG Duration 07/23/19 Assessment Summary Assessment Pt had more difficulty with balance activities this visit. He was unable to complete head turns during staggered stance without increase of sway, L > R. Spent additional time in parallel bars in order to increase activity tolerance when standing. Restrictions noted in left hip jt with posterior glide. L hip IR improved following manual. Increased tissue density at L mid-IT band. Physical Therapy Plan Frequency and Duration Frequency of Treatment 2x/Week Duration of Treatment 2 months Plan of Care Start Date 05/24/19 Plan of Care End Date 07/23/19 Next Visit Focus/Plan Next Note Type Progress Note Next Visit Plan If pt can tolerate, begin dynamic balance.
--- NOTE | 2019-06-23 17:54 | PT.OTN ---
Current Diagnoses Polyneuropathy, unspecified (06/23/19) Spinal stenosis, lumbar region without neurogenic claudication (06/23/19) Difficulty in walking, not elsewhere classified (06/23/19) Other abnormalities of gait and mobility (06/23/19) Weakness (06/23/19) Physical Therapy Treatment Note PT-OP-A Visit Information Start: 02/02/19 17:43 Freq: Status: Active Protocol: Document 06/23/19 12:11 SP (Rec: 06/23/19 12:42 SP [email or web address]) Out-Patient Physical Therapy Visit Information Visit Information Visit Type Treatment Note Visit Note 02/04 Visit Start Time 11:20 Visit Stop Time 12:12 Total Visit Minutes 52 Visit Number 29 Number of LEAD CARE MANAGER Visits 0 PT-OP-B Current Condition Start: 02/02/19 17:43 Freq: Status: Active Protocol: Document 02/03/19 11:22 [facility] (Rec: 02/03/19 12:13 [facility] [id number]) Current Condition History of Current Condition Onset Date >30 year back pain Current Complaints back pain & dec balance History of Current Condition Pt reports he wants to walk around without falling. Pt reports he has 2-3 per month and typically gets momentum fwd and cannot control that so falls fwd. No difference based on terrain. Pt reports history of back pain for 30 years with 2 fusion surgies and a laminectomy the 3rd surgery. Pt has a pain stimulator in his back which helped at first but as he got used it, its been less effective. Pt reprots it was done about 6 years ago. Pt reports he goes 1x.week to the [facility], he gets in the pool. Pt reports PT has been helpful in the past. Pt reports balance has been getting worse of the past year or 2 especially recently. Prior Treatments and Tests multiple bouts of PT, mult shots, mult MRIs Treatment Goals Patient/Caregiver Goals Dec falls, Be able to walk further distances (to car with ease, down driveway), get in and out of chairs easier, get in and out of bed and roll easier PT-OP-C Subjective Start: 02/02/19 17:43 Freq: Status: Active Protocol: Document 06/23/19 12:11 SP (Rec: 06/23/19 12:42 SP [email or web address]) OP-PT Subjective Patient Comments Patient Comments Pt reports he has been dizzy the last couple of days. He states he has been feeling like he could tip over when he leans too far forward. He has been completing his HEP daily . PT-OP-D Balance Start: 02/02/19 17:43 Freq: Status: Active Protocol: Document 05/24/19 08:25 [facility] (Rec: 05/24/19 19:11 [facility] [id number]) Balance Tests De La Rosa Balance Test De La Rosa Balance Test Score 32 PT-OP-F Manual Assessment Start: 02/02/19 17:43 Freq: Status: Active Protocol: Document 02/03/19 11:22 [facility] (Rec: 02/03/19 12:13 [facility] [id number]) Manual Assessments Soft Tissue Assessment Soft Tissue Mobility Assessment significant scar tissue tightness, ES B & QL B tightness PT-OP-G Mobility & Gait Start: 02/02/19 17:43 Freq: Status: Active Protocol: Document 02/03/19 11:22 [facility] (Rec: 02/03/19 12:13 [facility] [id number]) OP Gait Assessment Comments Gait Comments Pt amb with SPC with B lat leaning & fwd leaning. Dec overall push off PT-OP-M Strength Start: 02/02/19 17:43 Freq: Status: Active Protocol: Document 05/24/19 08:25 [facility] (Rec: 05/24/19 19:11 [facility] [id number]) Hip Strength Hip Manual Muscle Testing Left Flexion (L2) 4- Good- Extension (S1) 3+ Fair+ Abduction 3+ Fair+ External Rotation 4- Good- Internal Rotation 4- Good- Right Flexion (L2) 4 Good Extension (S1) 3 Fair Abduction 4 Good External Rotation 4+ Good+ Internal Rotation 4 Good Knee Strength Knee Manual Muscle Testing Left Flexion (S2) 4+ Good+ Extension (L3) 4+ Good+ Right Flexion (S2) 4+ Good+ Extension (L3) 4 Good Ankle/Foot Strength Ankle and Foot Manual Muscle Testing Left Dorsiflexion (L4) 5 Normal Plantarflexion (S1) 4 Good Right Dorsiflexion (L4) 5 Normal Plantarflexion (S1) 4 Good Comments seated PF testing PT-OP-Q Treatments Start: 02/02/19 17:43 Freq: Status: Active Protocol: Document 06/23/19 12:11 SP (Rec: 06/23/19 12:42 SP [email or web address]) Cardio Equipment Recumbent Stepper (Sci-Fit) Duration (Minutes) 7 Resistance 5 Seat Position 11 Therapeutic Exercises Standing Exercises hip ext Side bilateral Reps/Minutes 20 each hip abd Side bilateral Reps/Minutes 20 each Manual Therapy Treatment Soft Tissue Mobilization ES, IT band, QL Mobilization Type Strumming,Sustained Pressure Intensity/Depth Moderate Body Position Sidelying Neuro Re-Education Treatment Balance Activities tpads Details staggered stance B Surface blue/blue Comments with head turns PT-OP-R Modalities Start: 02/02/19 17:43 Freq: Status: Active Protocol: Document 06/23/19 12:11 SP (Rec: 06/23/19 14:56 SP [email or web address]) Hot Pack/Cold Pack Treatment Cold Pack Location lumbar Patient Position Sidelying Treatment Duration (minutes) 10 Patient Tolerance Good PT-OP-S Aquatic Treatment Start: 02/26/19 16:08 Freq: Status: Active Protocol: Document 04/12/19 10:15 [facility] (Rec: 04/12/19 16:04 [facility] [id number]) Aquatics Treatment Pool Entry/Exit Pool Entry/Exit Method Stairs Assistance Independent Water Walking stop/start/stabilize Water Level Chest Level Walking Equipment Ankle Weight- 2.5# Level of Assistance Standby Assistance,Contact Guard Assistance,Minimal Assistance,Verbal Cues Comments forward and sideways directional changes Water Level Chest Level Walking Equipment Ankle Weight- 2.5# Level of Assistance Standby Assistance,Contact Guard Assistance,Minimal Assistance,Verbal Cues Marching Water Level Chest Level Walking Equipment Ankle Weight- 2.5# Level of Assistance Standby Assistance,Contact Guard Assistance,Minimal Assistance,Verbal Cues Comments HAdd HAbd arms Backwards Water Level Chest Level Walking Equipment Ankle Weight- 2.5# Level of Assistance Standby Assistance,Minimal Assistance,Moderate Assistance ,Verbal Cues Comments BS arms Sideways Water Level Chest Level Walking Equipment Ankle Weight- 2.5# Level of Assistance Standby Assistance,Contact Guard Assistance Comments abd add arms simultaneous with LE action Forwards Water Level Chest Level Walking Equipment Ankle Weight- 2.5# Level of Assistance Standby Assistance,Verbal Cues Comments several LOB Lower Extremity Exercises hip figure 8 Details at wall Body Position Standing Water Level Chest Level Reps/Duration 8 bilat Comments pt requires manual assist step ups on boxes Details forward and sideways Water Level Waist Level Equipment [place] Float Reps/Duration 8 min Comments many LOBs; various size boxes hip ab/ad Body Position Standing Water Level Chest Level Reps/Duration 2x10 Comments hh on wall hip flex/ext Body Position Standing Water Level Chest Level Reps/Duration 2x10 Comments hh on wall squats on box Details muscle sequence activation- [id number] Water Level Chest Level Equipment Ankle Weight- 2.5# Reps/Duration 4 Comments hh on wall; good posture Lower Extremity Stretches ER/IR bilateral Details at wall Body Position Standing Water Level Chest Level Reps/Duration 45x2 Comments IR manually assisted gastroc Details at wall Body Position Standing Water Level Chest Level Reps/Duration 45x2 hip flexors Details at wall Body Position Standing Water Level Chest Level Reps/Duration 45x2 Comments manual cueing HS, Quad Details at wall Body Position Standing Water Level Chest Level Equipment Small Noodle Reps/Duration 45x2 Upper Extremity Exercises flex/ext, ab,ad Body Position Standing Water Level Chest Level Reps/Duration 10 ea Comments for core stabilization Spinal Exercises spinal stabilization with perturbances Body Position Standing Water Level Chest Level Reps/Duration 3 min Balance weight shifting forward and backward; side to side Body Position Standing Water Level Chest Level Reps/Duration 4 min Comments forward-backward with difficulty PT-OP-T Assessment and Plan Start: 02/02/19 17:43 Freq: Status: Active Protocol: Document 06/23/19 12:11 SP (Rec: 06/23/19 12:42 SP [email or web address]) Physical Therapy Assessment Goals gait Long-Term Goal (LTG) Pt will be able to walk for 10 min without requiring a rest break. 05/24-limited progress d/t recent surgery 06/23 - able to walk 4-5 minutes before needing rest break LTG Duration 05/06/19 mobility Short Term Goal (STG) Pt will be indep with log roll technique and report less difficulty with getting in and out of bed and rolling in bed . 05/24-improved log roll but still difficult d/t strength 06/23 - achieved STG Duration 06/24/19 Cso Goal (LTG) Pt will be able to get in and out of a chair without use of UE 05/24-still requires UE 06/23 - requires UE LTG Duration 07/23/19 strength Short Term Goal (STG) Pt will be indep with HEP and will be going to gym 2-3x/week . 05/24-achieved prior to surgery on foot, pt is currently ocmpliant with HEP 06/23 - pt is compliant with HEP STG Duration 06/12/19 Long-Term Goal (LTG) Pt will improve LE strength to at least 4+/5 in order to allow pt to return to typical activities and ADLs with greater ease. 05/24-improved LTG Duration 07/23/19 fall risk Short Term Goal (STG) Pt will improve DE LA ROSA score to 35/56 to show dec fall risk with AD. 05/24-improved STG Duration 06/24/19 Long-Term Goal (LTG) Pt will improve DE LA ROSA score to 50/56 in order to show pt to be less liekly to fall in the community. LTG Duration 07/23/19 Assessment Summary Assessment Pt has difficulty maintaining balance with head turns L > R. He was able to complete all standing exercises with one rest break, which is an improvement from last week. Pt is able to transfer on/off the treatment table without assistance. Pt demonstrates good technique with exercises indicating compliance with HEP and would benefit from more LE strengthening. He needs minimal verbal cueing for posture. Pt would benefit from further PT in order to increase activity tolerance, decrease fall risk, and be able to transfer safely. De La Rosa and MMT were not tested today, will reassess next visit. Physical Therapy Plan Frequency and Duration Frequency of Treatment 2x/Week Duration of Treatment 2 months Plan of Care Start Date 05/24/19 Plan of Care End Date 07/23/19 Next Visit Focus/Plan Next Note Type Treatment Note Next Visit Plan add resistance with LE strengthening, dynamic balance .
[2019-06-30 14:28] VITALS: BP 98/60
--- NOTE | 2019-06-30 15:10 | PT.OTN ---
Current Diagnoses Polyneuropathy, unspecified (06/30/19) Spinal stenosis, lumbar region without neurogenic claudication (06/30/19) Difficulty in walking, not elsewhere classified (06/30/19) Other abnormalities of gait and mobility (06/30/19) Weakness (06/30/19) Physical Therapy Treatment Note PT-OP-A Visit Information Start: 02/02/19 17:43 Freq: Status: Active Protocol: Document 06/30/19 14:28 SP (Rec: 06/30/19 14:47 SP [email or web address]) Out-Patient Physical Therapy Visit Information Visit Information Visit Type Treatment Note Visit Note 05/07 Visit Start Time 08:18 Visit Stop Time 09:12 Total Visit Minutes 54 Visit Number 30 Number of SALES TEAM RECRUITER Visits 0 PT-OP-B Current Condition Start: 02/02/19 17:43 Freq: Status: Active Protocol: Document 02/03/19 11:22 [facility] (Rec: 02/03/19 12:13 [facility] [id number]) Current Condition History of Current Condition Onset Date >30 year back pain Current Complaints back pain & dec balance History of Current Condition Pt reports he wants to walk around without falling. Pt reports he has 2-3 per month and typically gets momentum fwd and cannot control that so falls fwd. No difference based on terrain. Pt reports history of back pain for 30 years with 2 fusion surgies and a laminectomy the 3rd surgery. Pt has a pain stimulator in his back which helped at first but as he got used it, its been less effective. Pt reprots it was done about 6 years ago. Pt reports he goes 1x.week to the [facility], he gets in the pool. Pt reports PT has been helpful in the past. Pt reports balance has been getting worse of the past year or 2 especially recently. Prior Treatments and Tests multiple bouts of PT, mult shots, mult MRIs Treatment Goals Patient/Caregiver Goals Dec falls, Be able to walk further distances (to car with ease, down driveway), get in and out of chairs easier, get in and out of bed and roll easier PT-OP-C Subjective Start: 02/02/19 17:43 Freq: Status: Active Protocol: Document 06/30/19 14:28 SP (Rec: 06/30/19 14:47 SP [email or web address]) OP-PT Subjective Patient Comments Patient Comments Pt reports he is feeling extra tired this morning. He states that his knees feel ok today however his low back is bothering him.He reports not eating breakfast today, usually does not. PT-OP-D Balance Start: 02/02/19 17:43 Freq: Status: Active Protocol: Document 05/24/19 08:25 [facility] (Rec: 05/24/19 19:11 [facility] [id number]) Balance Tests De La Rosa Balance Test De La Rosa Balance Test Score 32 PT-OP-F Manual Assessment Start: 02/02/19 17:43 Freq: Status: Active Protocol: Document 02/03/19 11:22 [facility] (Rec: 02/03/19 12:13 [facility] [id number]) Manual Assessments Soft Tissue Assessment Soft Tissue Mobility Assessment significant scar tissue tightness, ES B & QL B tightness PT-OP-G Mobility & Gait Start: 02/02/19 17:43 Freq: Status: Active Protocol: Document 02/03/19 11:22 [facility] (Rec: 02/03/19 12:13 [facility] [id number]) OP Gait Assessment Comments Gait Comments Pt amb with SPC with B lat leaning & fwd leaning. Dec overall push off PT-OP-M Strength Start: 02/02/19 17:43 Freq: Status: Active Protocol: Document 05/24/19 08:25 [facility] (Rec: 05/24/19 19:11 [facility] [id number]) Hip Strength Hip Manual Muscle Testing Left Flexion (L2) 4- Good- Extension (S1) 3+ Fair+ Abduction 3+ Fair+ External Rotation 4- Good- Internal Rotation 4- Good- Right Flexion (L2) 4 Good Extension (S1) 3 Fair Abduction 4 Good External Rotation 4+ Good+ Internal Rotation 4 Good Knee Strength Knee Manual Muscle Testing Left Flexion (S2) 4+ Good+ Extension (L3) 4+ Good+ Right Flexion (S2) 4+ Good+ Extension (L3) 4 Good Ankle/Foot Strength Ankle and Foot Manual Muscle Testing Left Dorsiflexion (L4) 5 Normal Plantarflexion (S1) 4 Good Right Dorsiflexion (L4) 5 Normal Plantarflexion (S1) 4 Good Comments seated PF testing PT-OP-H Neuro Start: 06/30/19 14:39 Freq: Status: Active Protocol: Document 06/30/19 14:28 SP (Rec: 06/30/19 14:51 SP [email or web address]) Vital Signs Blood Pressure Sitting Blood Pressure (90/60-120/80 mmHg) 98/60 Blood Pressure Source Manual Cuff,Left Upper Extremity Comments Vital Signs Comments 98/60 - pt lightheaded, dizzy, and mildly pale. 110/60 - BP after 5 minutes in sitting. Pt 's color is normal, no other symptoms. PT-OP-Q Treatments Start: 02/02/19 17:43 Freq: Status: Active Protocol: Document 06/30/19 14:28 SP (Rec: 06/30/19 14:47 SP [email or web address]) Cardio Equipment Recumbent Stepper (Sci-Fit) Duration (Minutes) 7 Resistance 5 Seat Position 11 Therapeutic Exercises Standing Exercises heel raises Side bilateral Reps/Minutes 20 hip ext Side bilateral Reps/Minutes 30 each hip abd Side bilateral Reps/Minutes 30 each Manual Therapy Treatment Soft Tissue Mobilization ES, QL Body Location right Mobilization Type Sustained Pressure Intensity/Depth Moderate Body Position Sidelying Neuro Re-Education Treatment Balance Activities tpads Details staggered stance B Surface blue/blue, theraband foam pads Comments with head turns PT-OP-R Modalities Start: 02/02/19 17:43 Freq: Status: Active Protocol: Document 06/30/19 14:28 SP (Rec: 06/30/19 14:48 SP [email or web address]) Hot Pack/Cold Pack Treatment Cold Pack Location lumbar Patient Position Sidelying Treatment Duration (minutes) 10 Patient Tolerance Good PT-OP-T Assessment and Plan Start: 02/02/19 17:43 Freq: Status: Active Protocol: Document 06/30/19 14:28 SP (Rec: 06/30/19 14:47 SP [email or web address]) Physical Therapy Assessment Goals mobility Short Term Goal (STG) Pt will be indep with log roll technique and report less difficulty with getting in and out of bed and rolling in bed . 05/24-improved log roll but still difficult d/t strength 06/23 - achieved STG Duration 06/24/19 Mcfp Goal (LTG) Pt will be able to get in and out of a chair without use of UE 05/24-still requires UE 06/23 - requires UE LTG Duration 07/23/19 strength Short Term Goal (STG) Pt will be indep with HEP and will be going to gym 2-3x/week . 05/24-achieved prior to surgery on foot, pt is currently compliant with HEP 06/23 - pt is compliant with HEP STG Duration 06/12/19 Mcfp Goal (LTG) Pt will improve LE strength to at least 4+/5 in order to allow pt to return to typical activities and ADLs with greater ease. 05/24-improved LTG Duration 07/23/19 fall risk Short Term Goal (STG) Pt will improve DE LA ROSA score to 35/56 to show dec fall risk with AD. 05/24-improved STG Duration 06/24/19 Hvac Service Technician Goal (LTG) Pt will improve DE LA ROSA score to 50/56 in order to show pt to be less likely to fall in the community. LTG Duration 07/23/19 Assessment Summary Assessment Pt had difficulty with balance activities today. This may be due to pt getting dizzy during exercise. He required min-mod A from PT to regain control when turning around in the parallel bars. Pt was instructed to sit down and BP was taken. BP 98/60 in sitting , 110/60 5 minutes later. Pt educated on importance of sitting down if he gets lightheaded with position changes and during exercise. Unclear why he had drop in BP during this visit that was symptomatic. Will need to continue to monitor response to activities/exercises for safety. Dehydration is a possibility due to pt not eating nor drinking before this visit. Pt provided with water while resting today. Physical Therapy Plan Frequency and Duration Frequency of Treatment 2x/Week Duration of Treatment 2 months Plan of Care Start Date 05/24/19 Plan of Care End Date 07/23/19 Next Visit Focus/Plan Next Note Type Treatment Note Next Visit Plan Progress LE strengthening, check BP.
--- NOTE | 2019-10-20 11:08 | PT.OPDS ---
Current Diagnoses Polyneuropathy, unspecified (06/30/19) Spinal stenosis, lumbar region without neurogenic claudication (06/30/19) Difficulty in walking, not elsewhere classified (06/30/19) Other abnormalities of gait and mobility (06/30/19) Weakness (06/30/19) Visit Care Team Role Provider Type Selena Bishop MD Attending Provider Non-Staff Primary Care Provider Specialty: Medical Address: [address] [place] [address], [id number] Email: Visit Number Visit Number 30 Discharge Summary PT-OP-T Assessment and Plan Start: 02/02/19 17:43 Freq: Status: Active Protocol: Document 10/20/19 11:07 [facility] (Rec: 10/20/19 11:08 [facility] [email or web address]) Physical Therapy Plan Discharge Physical Therapy Discharge Reasons No Longer Attending PT Discharge Comments pt cancelled appointments d/t COVID 19 concerns and has not called back to schedule. DC at this time
== END 2019-10-21 07:40 ==
LOC: PHYS 08:15
PROVIDERS: PCP Family Medicine; Visit Provider Family Medicine
DX: G62.9 Polyneuropathy, unspecified (principal); M48.061 Spinal stenosis, lumbar region without neurogenic claudication; R26.89 Other abnormalities of gait and mobility; R26.2 Difficulty in walking, not elsewhere classified; R53.1 Weakness
CPT/HCPCS: 97010; 97110; 97112; 97113; 97116; 97140; 97162; 97535

== ENCOUNTER 2020-02-03 13:45 | Outpatient (RCR) | payer MEDICARE, SELFPAY ==
--- NOTE | 2019-12-29 14:33 | PT.OPPOC ---
Physical, Occupational & Speech Therapy At [facility] Current Diagnoses Adhesive capsulitis of left shoulder (12/31/19) Other abnormalities of gait and mobility (12/31/19) Abnormal posture (12/31/19) Weakness (12/31/19) Visit Care Team Role Provider Type Selena Bishop MD Primary Care Provider Non-Staff Specialty: Medical Address: [address] [place] [address], [place], [address] Email: Rena Lawton PA-C Attending Provider Non-Staff Referring Provider Specialty: Medical Address: [address] [facility], [place], [address] Email: Plan Of Care PT-OP-T Assessment and Plan Start: 12/29/19 07:29 Freq: Status: Active Protocol: Document 01/04/20 10:37 [facility] (Rec: 12/29/19 11:16 [facility] [id number]) Physical Therapy Assessment Rehab Potential Rehabilitation Potential Good Goals quick dash Impairment 43.18 Precision Inspector Goal (LTG) Pt will improve to 24 to show improved shoulder ability LTG Duration 02/28/20 mobility Short Term Goal (STG) Pt will improve active flex and abd to at least 80 deg ea STG Duration 01/28/20 Precision Inspector Goal (LTG) Pt will have equal L shoulder ROM to other side in order to allow pt to do ADLs and do all overhead activities. LTG Duration 02/28/20 strength Short Term Goal (STG) Pt will be indepw ith HEP STG Duration 01/28/20 [facility] Goal (LTG) Pt will have equal LUE strength to RUE to show improved stability in order to do ADLs. LTG Duration 02/28/20 fall risk Impairment 23 Short Term Goal (STG) Pt will improve DE LA ROSA score to 28 to show dec risk for falls. STG Duration Precision Inspector Goal (LTG) Pt will improve DE LA ROSA score to 36 toshow dec risk for falls to avoid futher shoulder injury LTG Duration 02/28/20 Assessment Summary Assessment Pt presents with l shoulder injury after a fall about four months ago. Since fall, pt has had mult other falls onto shoulder causing further injury. He may have RC injury based on testing. He would bneeift from skilled PT to work on posture, shoulder ROM & strength and balance to prevent further shoulder injury. Physical Therapy Plan Frequency and Duration Frequency of Treatment 2x/Week Duration of Treatment 2 months Plan of Care Start Date 12/29/19 Plan of Care End Date 02/28/20 Therapeutic Interventions Therapeutic Interventions Aquatic Therapy,Balance Training,Gait Training,Home Exercise Program,Joint Mobilizations,Manual Therapy, Neuromuscular Re-education, Patient/Caregiver Education, Self-Care/Home Management,Soft Tissue Mobilization,Taping, Therapeutic Activities, Therapeutic Exercises Modalities Cold Pack/Ice Massage,Electric Stimulation,Hot Packs, Infrared Therapy,Ultrasound Next Visit Focus/Plan Next Note Type Treatment Note Next Visit Plan Work on AAROM of L shoulder & work on balance and safety, manual to improve ROM Plan of Care Dates Plan of Care Start Date 12/29/19 Plan of Care End Date 02/28/20 Electronically Signed by: Dina Kelly, PT 01/04/20 [id number] Please Sign and Return: I have reviewed this Plan of Care and certify that the skilled therapy services above are required to meet the patient?s needs. Physician Signature Date Printed Name and Credentials Clinical Instructor Signature Printed Name and Credentials
--- NOTE | 2019-12-29 14:33 | PT.OIE ---
Current Diagnoses Adhesive capsulitis of left shoulder (12/29/19) Other abnormalities of gait and mobility (12/29/19) Abnormal posture (12/29/19) Weakness (12/29/19) Visit Care Team Role Provider Type Selena Bishop MD Primary Care Provider Non-Staff Specialty: Medical Address: [address] [place] [address], [place], [address] Email: Rena Lawton PA-C Attending Provider Non-Staff Referring Provider Specialty: Medical Address: [address] [place] [address], [id number] Email: Physical Therapy Initial Evaluation PT-OP-A Visit Information Start: 12/29/19 07:29 Freq: Status: Active Protocol: Document 12/29/19 10:37 [facility] (Rec: 12/29/19 11:16 [facility] [id number]) Out-Patient Physical Therapy Visit Information Visit Information Visit Type Initial Evaluation Visit Start Time 10:35 Visit Stop Time 11:15 Total Visit Minutes 40 Visit Number 1 Number of METAL PICKLING EQUIPMENT OPERATOR Visits 0 PT-OP-B Current Condition Start: 12/29/19 07:29 Freq: Status: Active Protocol: Document 12/29/19 10:37 [facility] (Rec: 12/29/19 11:16 [facility] [id number]) Current Condition History of Current Condition Onset Date about 4 months ago-got worse with more falls Current Complaints L shoulder History of Current Condition Pt reports he is now using the walker everywhere. He is constantly falling down. MD thinks he may have parkinson's . Pt fell a few times on L arm and he has history of L RCR. He reports it is slowly getting better. He can now do more elbow motions and can do some reaching across his body. Pt reports arm is getting a little better but is almost useless. Pt has difficulty turning in bed. He has had a few falls and is having trouble getting up d/t his L arm hurting. Pt reports falling almost every day sometimes a couple times in a day. He could not handle the initial meds d/t dizziness and is trying something new. Pt reports he starts tingling from wasit down whenever he stands up. Pt reports no numbness tingling in L arm. Pt has history of back pain, L RCR, falls, dizziness, neuropathy, and possible Parkinson's diagnosis. Prior Treatments and Tests some imaging; injection about a month ago in shoulder. Prior to injection pain into forearm Treatment Goals Patient/Caregiver Goals improve balance to dec falls on shoulder, be able to reach w/LUE PT-OP-C Subjective Start: 12/29/19 07:29 Freq: Status: Active Protocol: Document 12/29/19 10:37 [facility] (Rec: 12/29/19 11:16 [facility] [id number]) Patient Questionnaires Quick Dash- Upper Extremity Quick Dash UE Score 43.18 OP-PT Pain Assessment Location L shoulder Pain Location Details ant shoulder & biceps region Scale Used up to a 10 Description Sharp,With Movement Frequency Intermittent Pain Duration only as long doing painful movement Radiating Location initially all the way down arm -sling helped Other Pain Aggravating Factors overhead & reaching activities Pain Alleviating Factors Inactivity PT-OP-D Balance Start: 12/29/19 10:37 Freq: Status: Active Protocol: Document 12/29/19 10:37 [facility] (Rec: 12/29/19 11:16 [facility] [id number]) Balance Tests De La Rosa Balance Test De La Rosa Balance Test Score 23/56 De La Rosa Impairment Rating 40 to 59% Impaired (Score 23- 33) PT-OP-J Posture/Palpation/Skin Start: 12/29/19 07:29 Freq: Status: Active Protocol: Document 12/29/19 10:37 [facility] (Rec: 12/29/19 11:16 [facility] [id number]) Posture Evaluation Comments Posture Comments fwd head and shoulders & inc kyphosis PT-OP-K Range of Motion Start: 12/29/19 07:29 Freq: Status: Active Protocol: Document 12/29/19 10:37 [facility] (Rec: 12/29/19 11:16 [facility] [id number]) Shoulder Goniometric Range of Motion Shoulder Left Passive Testing Position Supine Flexion 103 Abduction 90 External Rotation at 45 degrees 81 Abduction Internal Rotation 31 Right Active Flexion 132 Extension 62 Abduction 151 External Rotation at 0 degrees Abduction 22 Internal Rotation Behind Back (text) L4 Left Active Flexion 35 Extension 48 Abduction 36 External Rotation at 0 degrees Abduction 21 Internal Rotation Behind Back (text) buttocks PT-OP-L Special Tests Start: 12/29/19 07:29 Freq: Status: Active Protocol: Document 12/29/19 10:37 [facility] (Rec: 12/29/19 11:16 [facility] [id number]) Special Tests Shoulder Special Tests Drop Arm Rotator Cuff Test Results positive Empty Can Test Results unable to hold position to test Guzmán Melvin Impingement Test Results positive Neer Impingement Test Results positive AC Joint Compression Test Results positive PT-OP-M Strength Start: 12/29/19 07:29 Freq: Status: Active Protocol: Document 12/29/19 10:37 [facility] (Rec: 12/29/19 11:16 [facility] [id number]) Shoulder Strength Shoulder Manual Muscle Testing Right Flexion 4- Good- Extension 5 Normal Abduction (C5) 4- Good- External Rotation 3+ Fair+ Internal Rotation 5 Normal Left Extension 3+ Fair+ External Rotation 3- Fair- Internal Rotation 3 Fair Comments unable to test shoulder abd & flex d/t ROM lacking PT-OP-T Assessment and Plan Start: 12/29/19 07:29 Freq: Status: Active Protocol: Document 12/29/19 10:37 [facility] (Rec: 12/29/19 11:16 [facility] [id number]) Physical Therapy Assessment Rehab Potential Rehabilitation Potential Good Goals quick dash Impairment 43.18 News Production Supervisor Goal (LTG) Pt will improve to 24 to show improved shoulder ability LTG Duration 02/28/20 mobility Short Term Goal (STG) Pt will improve active flex and abd to at least 80 deg ea STG Duration 01/28/20 News Production Supervisor Goal (LTG) Pt will have equal L shoulder ROM to other side in order to allow pt to do ADLs and do all overhead activities. LTG Duration 02/28/20 strength Short Term Goal (STG) Pt will be indepw ith HEP STG Duration 01/28/20 News Production Supervisor Goal (LTG) Pt will have equal LUE strength to RUE to show improved stability in order to do ADLs. LTG Duration 02/28/20 fall risk Impairment 23 Short Term Goal (STG) Pt will improve DE LA ROSA score to 28 to show dec risk for falls. STG Duration Care Home Goal (LTG) Pt will improve DE LA ROSA score to 36 toshow dec risk for falls to avoid futher shoulder injury LTG Duration 02/28/20 Assessment Summary Assessment Pt presents with l shoulder injury after a fall about four months ago. Since fall, pt has had mult other falls onto shoulder causing further injury. He may have RC injury based on testing. He would bneeift from skilled PT to work on posture, shoulder ROM & strength and balance to prevent further shoulder injury. Physical Therapy Plan Next Visit Focus/Plan Next Note Type Treatment Note
--- NOTE | 2019-12-29 14:33 | PT.OPPOC ---
Physical, Occupational & Speech Therapy At [facility] Current Diagnoses Adhesive capsulitis of left shoulder (12/29/19) Other abnormalities of gait and mobility (12/29/19) Abnormal posture (12/29/19) Weakness (12/29/19) Visit Care Team Role Provider Type Selena Bishop MD Primary Care Provider Non-Staff Specialty: Medical Address: [address] [place] [address], [place], [address] Email: Rena Lawton PA-C Attending Provider Non-Staff Referring Provider Specialty: Medical Address: [address], [place], [address] Email: Plan Of Care PT-OP-T Assessment and Plan Start: 12/29/19 07:29 Freq: Status: Active Protocol: Document 12/29/19 10:37 [facility] (Rec: 12/29/19 11:16 [facility] [id number]) Physical Therapy Assessment Rehab Potential Rehabilitation Potential Good Goals quick dash Impairment 43.18 Binder Sorter Goal (LTG) Pt will improve to 24 to show improved shoulder ability LTG Duration 02/28/20 mobility Short Term Goal (STG) Pt will improve active flex and abd to at least 80 deg ea STG Duration 01/28/20 Binder Sorter Goal (LTG) Pt will have equal L shoulder ROM to other side in order to allow pt to do ADLs and do all overhead activities. LTG Duration 02/28/20 strength Short Term Goal (STG) Pt will be indepw ith HEP STG Duration 01/28/20 Long-Term Goal (LTG) Pt will have equal LUE strength to RUE to show improved stability in order to do ADLs. LTG Duration 02/28/20 fall risk Impairment 23 Short Term Goal (STG) Pt will improve DE LA ROSA score to 28 to show dec risk for falls. STG Duration Binder Sorter Goal (LTG) Pt will improve DE LA ROSA score to 36 toshow dec risk for falls to avoid futher shoulder injury LTG Duration 02/28/20 Assessment Summary Assessment Pt presents with l shoulder injury after a fall about four months ago. Since fall, pt has had mult other falls onto shoulder causing further injury. He may have RC injury based on testing. He would bneeift from skilled PT to work on posture, shoulder ROM & strength and balance to prevent further shoulder injury. Physical Therapy Plan Next Visit Focus/Plan Next Note Type Treatment Note Electronically Signed by: Dina Kelly, PT 12/29/19 [id number] Please Sign and Return: I have reviewed this Plan of Care and certify that the skilled therapy services above are required to meet the patient?s needs. Physician Signature Date Printed Name and Credentials Clinical Instructor Signature Printed Name and Credentials
--- NOTE | 2019-12-31 11:25 | PT.OTN ---
Current Diagnoses Adhesive capsulitis of left shoulder (12/31/19) Other abnormalities of gait and mobility (12/31/19) Abnormal posture (12/31/19) Weakness (12/31/19) Physical Therapy Treatment Note PT-OP-A Visit Information Start: 12/29/19 07:29 Freq: Status: Active Protocol: Document 12/31/19 10:35 [facility] (Rec: 12/31/19 11:55 [facility] [id number]) Out-Patient Physical Therapy Visit Information Visit Information Visit Type Treatment Note Visit Start Time 10:35 Visit Stop Time 11:25 Total Visit Minutes 50 Visit Number 2 Number of ANCIENT ART CURATOR Visits 1 PT-OP-B Current Condition Start: 12/29/19 07:29 Freq: Status: Active Protocol: Document 12/29/19 10:37 [facility] (Rec: 12/29/19 11:16 [facility] [id number]) Current Condition History of Current Condition Onset Date about 4 months ago-got worse with more falls Current Complaints L shoulder History of Current Condition Pt reports he is now using the walker everywhere. He is constantly falling down. MD thinks he may have parkinson's . Pt fell a few times on L arm and he has history of L RCR. He reports it is slowly getting better. He can now do more elbow motions and can do some reaching across his body. Pt reports arm is getting a little better but is almost useless. Pt has difficulty turning in bed. He has had a few falls and is having trouble getting up d/t his L arm hurting. Pt reports falling almost every day sometimes a couple times in a day. He could not handle the initial meds d/t dizziness and is trying something new. Pt reports he starts tingling from wasit down whenever he stands up. Pt reports no numbness tingling in L arm. Pt has history of back pain, L RCR, falls, dizziness, neuropathy, and possible Parkinson's diagnosis. Prior Treatments and Tests some imaging; injection about a month ago in shoulder. Prior to injection pain into forearm Treatment Goals Patient/Caregiver Goals improve balance to dec falls on shoulder, be able to reach w/LUE PT-OP-C Subjective Start: 12/29/19 07:29 Freq: Status: Active Protocol: Document 12/31/19 10:35 [facility] (Rec: 12/31/19 11:55 [facility] [id number]) OP-PT Subjective Patient Comments Patient Comments Pt reported no changes since last tx. Pt reports L shld hurts worse when lifts up forward, can't go far sitting and 45-90 deg is most painful range 6/10 but can go further OH wtih no pain and agin on way back to beginning position . Pt reports someone repositioned FWW wheels to inside of walker to help with stabiltiy but feels still tips to R. PT-OP-D Balance Start: 12/29/19 10:37 Freq: Status: Active Protocol: Document 12/29/19 10:37 [facility] (Rec: 12/29/19 11:16 [facility] [id number]) Balance Tests De La Rosa Balance Test De La Rosa Balance Test Score 23/56 De La Rosa Impairment Rating 40 to 59% Impaired (Score 23- 33) PT-OP-J Posture/Palpation/Skin Start: 12/29/19 07:29 Freq: Status: Active Protocol: Document 12/29/19 10:37 [facility] (Rec: 12/29/19 11:16 [facility] [id number]) Posture Evaluation Comments Posture Comments fwd head and shoulders & inc kyphosis PT-OP-K Range of Motion Start: 12/29/19 07:29 Freq: Status: Active Protocol: Document 12/29/19 10:37 [facility] (Rec: 12/29/19 11:16 [facility] [id number]) Shoulder Goniometric Range of Motion Shoulder Left Passive Testing Position Supine Flexion 103 Abduction 90 External Rotation at 45 degrees 81 Abduction Internal Rotation 31 Right Active Flexion 132 Extension 62 Abduction 151 External Rotation at 0 degrees Abduction 22 Internal Rotation Behind Back (text) L4 Left Active Flexion 35 Extension 48 Abduction 36 External Rotation at 0 degrees Abduction 21 Internal Rotation Behind Back (text) buttocks PT-OP-L Special Tests Start: 12/29/19 07:29 Freq: Status: Active Protocol: Document 12/29/19 10:37 [facility] (Rec: 12/29/19 11:16 [facility] [id number]) Special Tests Shoulder Special Tests Drop Arm Rotator Cuff Test Results positive Empty Can Test Results unable to hold position to test Guzmán Melvin Impingement Test Results positive Neer Impingement Test Results positive AC Joint Compression Test Results positive PT-OP-M Strength Start: 12/29/19 07:29 Freq: Status: Active Protocol: Document 12/29/19 10:37 [facility] (Rec: 12/29/19 11:16 [facility] [id number]) Shoulder Strength Shoulder Manual Muscle Testing Right Flexion 4- Good- Extension 5 Normal Abduction (C5) 4- Good- External Rotation 3+ Fair+ Internal Rotation 5 Normal Left Extension 3+ Fair+ External Rotation 3- Fair- Internal Rotation 3 Fair Comments unable to test shoulder abd & flex d/t ROM lacking PT-OP-Q Treatments Start: 12/29/19 07:29 Freq: Status: Active Protocol: Document 12/31/19 10:35 [facility] (Rec: 12/31/19 11:55 [facility] [id number]) Therapeutic Exercises Supine Exercises AAROM L shld Supine Exercise Name ER, FF Equipment Used cane Reps/Minutes x5 reps Comments cued set up and proper form- pain 70-95 deg but ok further FF Sitting Exercises scap retraction/depression Reps/Minutes 5 sec hold x10 L shld ER Side left Resistance dowel Reps/Minutes 2x5 Therapeutic Activity Therapeutic Activity sit to stand Reps/Minutes mulitple Comments cued L UE FWW, feet underneath him, push with RUE on chair to stand then transition RUE on FWW Manual Therapy Treatment Soft Tissue Mobilization L pec, prox bicep, coracobracialis Body Location L Mobilization Type Cross-Friction,Myofascial Release Intensity/Depth Moderate Body Position Hooklying Joint Mobilizations inferior, posterior glides Joint L GH Jt Grade II Body Position Hooklying Manual Techniques PROM L shld Type FF, ABD, ER Body Position Hooklying Comments w/ inferior glide PT-OP-T Assessment and Plan Start: 12/29/19 07:29 Freq: Status: Active Protocol: Document 12/31/19 10:35 [facility] (Rec: 12/31/19 11:55 [facility] [id number]) Physical Therapy Assessment Goals quick dash Impairment 43.18 Coil Taper Goal (LTG) Pt will improve to 24 to show improved shoulder ability LTG Duration 02/28/20 mobility Short Term Goal (STG) Pt will improve active flex and abd to at least 80 deg ea STG Duration 01/28/20 Senior Care Goal (LTG) Pt will have equal L shoulder ROM to other side in order to allow pt to do ADLs and do all overhead activities. LTG Duration 02/28/20 strength Short Term Goal (STG) Pt will be indepw ith HEP STG Duration 01/28/20 Senior Care Goal (LTG) Pt will have equal LUE strength to RUE to show improved stability in order to do ADLs. LTG Duration 02/28/20 fall risk Impairment 23 Short Term Goal (STG) Pt will improve DE LA ROSA score to 28 to show dec risk for falls. STG Duration Coil Taper Goal (LTG) Pt will improve DE LA ROSA score to 36 toshow dec risk for falls to avoid futher shoulder injury LTG Duration 02/28/20 Assessment Summary Assessment Pt LOB requiring Mod A for recovery during sit to stand from waiting room chair pushing from FWW, came to standing on 3 attempts. Education provided for pushing from chair arms and upright posture once standing for improved balance and stability . Pt tends to lean to R during gait and FWW tips to R with comments the walker is off balance to R don't think the change in wheels inside of walker has helped. ANCIENT ART CURATOR education patient's posture leaning over R is the reason tipping off to R, required Min A for FWW onL stability and CGA walking back to gym for correcting trunk to neutral alignment. Tx focused on PROm, manual and AAROM HEP intiation LUE with hand outs for self recall and sit to stand proper form for safety with improved carryover. ANCIENT ART CURATOR walked sBA with patient outdoor, discussed with tx response. also reproted noted patient R lateral lean past 2 days and off balance, Recommended keeping with him during mobilty at home an in/out tx for decreased risks for falls. Not recommending any outdoor chores/activiites patient talks about during tx. If Lean continues to call physician for further assessment. Pt improvement in balance and neutral posture end of tx with SBA for safey. Physical Therapy Plan Frequency and Duration Frequency of Treatment 2x/Week Duration of Treatment 2 months Therapeutic Interventions Therapeutic Interventions Aquatic Therapy,Balance Training,Gait Training,Home Exercise Program,Joint Mobilizations,Manual Therapy, Neuromuscular Re-education, Patient/Caregiver Education, Self-Care/Home Management,Soft Tissue Mobilization,Taping, Therapeutic Activities, Therapeutic Exercises Modalities Cold Pack/Ice Massage,Electric Stimulation,Hot Packs, Infrared Therapy,Ultrasound Next Visit Focus/Plan Next Note Type Treatment Note Next Visit Plan Assess response to last tx: manual, PROM, AAROM HEP L shld and sit to stand safety, transfers using FWW at all times. Continue per PT POC.
--- NOTE | 2020-01-05 12:06 | PT.OTN ---
Current Diagnoses Adhesive capsulitis of left shoulder (01/05/20) Other abnormalities of gait and mobility (01/05/20) Abnormal posture (01/05/20) Weakness (01/05/20) Physical Therapy Treatment Note PT-OP-A Visit Information Start: 12/29/19 07:29 Freq: Status: Active Protocol: Document 01/05/20 10:40 [facility] (Rec: 01/05/20 12:06 [facility] [id number]) Out-Patient Physical Therapy Visit Information Visit Information Visit Type Treatment Note Visit Start Time 10:33 Visit Stop Time 11:15 Total Visit Minutes 42 Visit Number 3 Number of MOLDED [employer] SPOT P[employer]ER Visits 0 PT-OP-B Current Condition Start: 12/29/19 07:29 Freq: Status: Active Protocol: Document 01/04/20 10:37 [facility] (Rec: 12/29/19 11:16 [facility] [id number]) Current Condition History of Current Condition Onset Date about 4 months ago-got worse with more falls Current Complaints L shoulder History of Current Condition Pt reports he is now using the walker everywhere. He is constantly falling down. MD thinks he may have parkinson's . Pt fell a few times on L arm and he has history of L RCR. He reports it is slowly getting better. He can now do more elbow motions and can do some reaching across his body. Pt reports arm is getting a little better but is almost useless. Pt has difficulty turning in bed. He has had a few falls and is having trouble getting up d/t his L arm hurting. Pt reports falling almost every day sometimes a couple times in a day. He could not handle the initial meds d/t dizziness and is trying something new. Pt reports he starts tingling from wasit down whenever he stands up. Pt reports no numbness tingling in L arm. Pt has history of back pain, L RCR, falls, dizziness, neuropathy, and possible Parkinson's diagnosis. Prior Treatments and Tests some imaging; injection about a month ago in shoulder. Prior to injection pain into forearm Treatment Goals Patient/Caregiver Goals improve balance to dec falls on shoulder, be able to reach w/LUE PT-OP-C Subjective Start: 12/29/19 07:29 Freq: Status: Active Protocol: Document 01/05/20 10:40 [facility] (Rec: 01/05/20 12:06 [facility] [id number]) OP-PT Subjective Patient Comments Patient Comments Pt reports he remembers one of his exercises PT-OP-D Balance Start: 12/29/19 10:37 Freq: Status: Active Protocol: Document 12/29/19 15:37 [facility] (Rec: 12/29/19 11:16 [facility] [id number]) Balance Tests De La Rosa Balance Test De La Rosa Balance Test Score 23/56 De [place] Rosa Impairment Rating 40 to 59% Impaired (Score 23- 33) PT-OP-J Posture/Palpation/Skin Start: 12/29/19 07:29 Freq: Status: Active Protocol: Document 12/29/19 15:37 [facility] (Rec: 12/29/19 11:16 [facility] [id number]) Posture Evaluation Comments Posture Comments fwd head and shoulders & inc kyphosis PT-OP-K Range of Motion Start: 12/29/19 07:29 Freq: Status: Active Protocol: Document 12/29/19 15:37 [facility] (Rec: 12/29/19 11:16 [facility] [id number]) Shoulder Goniometric Range of Motion Shoulder Left Passive Testing Position Supine Flexion 103 Abduction 90 External Rotation at 45 degrees 81 Abduction Internal Rotation 31 Right Active Flexion 132 Extension 62 Abduction 151 External Rotation at 0 degrees Abduction 22 Internal Rotation Behind Back (text) L4 Left Active Flexion 35 Extension 48 Abduction 36 External Rotation at 0 degrees Abduction 21 Internal Rotation Behind Back (text) buttocks PT-OP-L Special Tests Start: 12/29/19 07:29 Freq: Status: Active Protocol: Document 12/29/19 15:37 [facility] (Rec: 12/29/19 11:16 [facility] [id number]) Special Tests Shoulder Special Tests Drop Arm Rotator Cuff Test Results positive Empty Can Test Results unable to hold position to test Guzmán Melvin Impingement Test Results positive Neer Impingement Test Results positive AC Joint Compression Test Results positive PT-OP-M Strength Start: 12/29/19 07:29 Freq: Status: Active Protocol: Document 12/29/19 15:37 [facility] (Rec: 12/29/19 11:16 [facility] [id number]) Shoulder Strength Shoulder Manual Muscle Testing Right Flexion 4- Good- Extension 5 Normal Abduction (C5) 4- Good- External Rotation 3+ Fair+ Internal Rotation 5 Normal Left Extension 3+ Fair+ External Rotation 3- Fair- Internal Rotation 3 Fair Comments unable to test shoulder abd & flex d/t ROM lacking PT-OP-Q Treatments Start: 12/29/19 07:29 Freq: Status: Active Protocol: Document 01/05/20 10:40 [facility] (Rec: 01/05/20 12:06 [facility] [id number]) Cardio Equipment Recumbent Stepper (Sci-Fit) Duration (Minutes) 6 Resistance 2 Seat Position 10 Therapeutic Exercises Supine Exercises AAROM L shld Supine Exercise Name ER, FF Equipment Used cane Reps/Minutes 10 ea Comments cued set up and proper form- pain 70-95 deg but ok further FF Sitting Exercises scap retraction/depression Reps/Minutes 5 sec hold x10 L shld ER Side left Resistance dowel Reps/Minutes 2x10 Manual Therapy Treatment Soft Tissue Mobilization UT Body Location L Mobilization Type Rolling L pec, prox bicep, coracobracialis Body Location L Mobilization Type Cross-Friction,Myofascial Release Intensity/Depth Moderate Body Position Hooklying Joint Mobilizations shoulder Joint L GH Direction inf, distraction & post Grade II PT-OP-T Assessment and Plan Start: 12/29/19 07:29 Freq: Status: Active Protocol: Document 01/05/20 10:40 [facility] (Rec: 01/05/20 12:06 [facility] [id number]) Physical Therapy Assessment Goals quick dash Impairment 43.18 Prison Goal (LTG) Pt will improve to 24 to show improved shoulder ability LTG Duration 02/28/20 mobility Short Term Goal (STG) Pt will improve active flex and abd to at least 80 deg ea STG Duration 01/28/20 Prison Goal (LTG) Pt will have equal L shoulder ROM to other side in order to allow pt to do ADLs and do all overhead activities. LTG Duration 02/28/20 strength Short Term Goal (STG) Pt will be indepw ith HEP STG Duration 01/28/20 Prison Goal (LTG) Pt will have equal LUE strength to RUE to show improved stability in order to do ADLs. LTG Duration 02/28/20 fall risk Impairment 23 Short Term Goal (STG) Pt will improve DE LA ROSA score to 28 to show dec risk for falls. STG Duration /20 Fitness Plan Coordinator Goal (LTG) Pt will improve DE LA ROSA score to 36 toshow dec risk for falls to avoid futher shoulder injury LTG Duration 02/28/20 Assessment Summary Assessment Pt was cued when walking for relaxing shoulders & keeping walker close. He did well with exercises with ceuing needed and present for form. Difficulty with scap retraction. Pt reported relief with manual. Physical Therapy Plan Frequency and Duration Frequency of Treatment 2x/Week Duration of Treatment 2 months Plan of Care Start Date 12/29/19 Plan of Care End Date 02/28/20 Next Visit Focus/Plan Next Note Type Treatment Note Next Visit Plan review exercsies and add new exercises as toelrated
--- NOTE | 2020-01-14 10:40 | PT-OP ANOTE ---
Pt DNS for today's appt, cancelled 01/07/20's appt. Left a message regarding importance of participation for positive progression. Reminded of next scheduled appt 01/25/20.
--- NOTE | 2020-01-25 09:06 | PT.OTN ---
Current Diagnoses Adhesive capsulitis of left shoulder (01/25/20) Other abnormalities of gait and mobility (01/25/20) Abnormal posture (01/25/20) Weakness (01/25/20) Physical Therapy Treatment Note PT-OP-A Visit Information Start: 12/29/19 07:29 Freq: Status: Active Protocol: Document 01/25/20 08:21 [facility] (Rec: 01/25/20 12:40 [facility] [id number]) Out-Patient Physical Therapy Visit Information Visit Information Visit Type Treatment Note Visit Start Time 08:21 Visit Stop Time 09:06 Total Visit Minutes 45 Visit Number 4 Number of FACILITIES SPECIALIST Visits 1 PT-OP-B Current Condition Start: 12/29/19 07:29 Freq: Status: Active Protocol: Document 12/29/19 15:37 [facility] (Rec: 12/29/19 11:16 [facility] [id number]) Current Condition History of Current Condition Onset Date about 4 months ago-got worse with more falls Current Complaints L shoulder History of Current Condition Pt reports he is now using the walker everywhere. He is constantly falling down. MD thinks he may have parkinson's . Pt fell a few times on L arm and he has history of L RCR. He reports it is slowly getting better. He can now do more elbow motions and can do some reaching across his body. Pt reports arm is getting a little better but is almost useless. Pt has difficulty turning in bed. He has had a few falls and is having trouble getting up d/t his L arm hurting. Pt reports falling almost every day sometimes a couple times in a day. He could not handle the initial meds d/t dizziness and is trying something new. Pt reports he starts tingling from wasit down whenever he stands up. Pt reports no numbness tingling in L arm. Pt has history of back pain, L RCR, falls, dizziness, neuropathy, and possible Parkinson's diagnosis. Prior Treatments and Tests some imaging; injection about a month ago in shoulder. Prior to injection pain into forearm Treatment Goals Patient/Caregiver Goals improve balance to dec falls on shoulder, be able to reach w/LUE PT-OP-C Subjective Start: 12/29/19 07:29 Freq: Status: Active Protocol: Document 01/25/20 08:21 [facility] (Rec: 01/25/20 12:40 [facility] [id number]) OP-PT Subjective Patient Comments Patient Comments Pt reported I am having alot of pain in L upper LS today. I fell 3 times, well be honest x5 times since last tx, inside can't remember where and outside x1, took my a long time to get me off the ground in driveway. Usually 3- 4x/wk. Pt LOB to L with Mod A for recovery upon arrival sit to stand from waiting room chair, cuing for pushing up from chair and not FWW, not in attendance in waiting room and no gait belt donned for assist. FACILITIES SPECIALIST discussed concerns for balance and requiring increase support and if physician is aware, mid tx after called her to come in and attend tx. confirmed pt has seen neurologist Dr Mena and assess parkinson's testing and adjusting medication and stated did'nt need to return for 3 month follow up. concerned that isn't getting better but worse. PT-OP-D Balance Start: 12/29/19 10:37 Freq: Status: Active Protocol: Document 12/29/19 15:37 [facility] (Rec: 12/29/19 11:16 [facility] [id number]) Balance Tests De La Rosa Balance Test De La Rosa Balance Test Score 23/56 De [place] Rosa Impairment Rating 40 to 59% Impaired (Score 23- 33) PT-OP-J Posture/Palpation/Skin Start: 12/29/19 07:29 Freq: Status: Active Protocol: Document 12/29/19 15:37 [facility] (Rec: 12/29/19 11:16 [facility] [id number]) Posture Evaluation Comments Posture Comments fwd head and shoulders & inc kyphosis PT-OP-K Range of Motion Start: 12/29/19 07:29 Freq: Status: Active Protocol: Document 12/29/19 15:37 [facility] (Rec: 12/29/19 11:16 [facility] [id number]) Shoulder Goniometric Range of Motion Shoulder Left Passive Testing Position Supine Flexion 103 Abduction 90 External Rotation at 45 degrees 81 Abduction Internal Rotation 31 Right Active Flexion 132 Extension 62 Abduction 151 External Rotation at 0 degrees Abduction 22 Internal Rotation Behind Back (text) L4 Left Active Flexion 35 Extension 48 Abduction 36 External Rotation at 0 degrees Abduction 21 Internal Rotation Behind Back (text) buttocks PT-OP-L Special Tests Start: 12/29/19 07:29 Freq: Status: Active Protocol: Document 12/29/19 15:37 [facility] (Rec: 12/29/19 11:16 [facility] [id number]) Special Tests Shoulder Special Tests Drop Arm Rotator Cuff Test Results positive Empty Can Test Results unable to hold position to test Guzmán Melvin Impingement Test Results positive Neer Impingement Test Results positive AC Joint Compression Test Results positive PT-OP-M Strength Start: 12/29/19 07:29 Freq: Status: Active Protocol: Document 12/29/19 15:37 [facility] (Rec: 12/29/19 11:16 [facility] [id number]) Shoulder Strength Shoulder Manual Muscle Testing Right Flexion 4- Good- Extension 5 Normal Abduction (C5) 4- Good- External Rotation 3+ Fair+ Internal Rotation 5 Normal Left Extension 3+ Fair+ External Rotation 3- Fair- Internal Rotation 3 Fair Comments unable to test shoulder abd & flex d/t ROM lacking PT-OP-Q Treatments Start: 12/29/19 07:29 Freq: Status: Active Protocol: Document 01/25/20 08:21 [facility] (Rec: 01/25/20 12:40 [facility] [id number]) Cardio Equipment Recumbent Stepper (Sci-Fit) Duration (Minutes) 6 Resistance 2 Seat Position 10 Therapeutic Exercises Supine Exercises serratus punch Supine Exercise Name alternate BUE Side right Resistance AROM x10, #1 x10 L, 3# R Equipment Used DB Comments target to punch to AAROM L shld Supine Exercise Name FF, ER, Side right Resistance AROM Reps/Minutes 2 x10 Comments cued set up and proper form- pain 70-95 deg but ok further FF Sitting Exercises AAROM Sitting Exercise Name ff, abd Side left Reps/Minutes x5 Comments unable lift self > approx 70 deg Therapeutic Activity Therapeutic Activity supine<> sitting Comments CGA supine>sit, Min sitting> supine LE support, cuing for log roll TA assist decrease LBP SPT Reps/Minutes 5 sit to stand Reps/Minutes mulitple Comments cued L UE FWW, feet underneath him, push with RUE on chair to stand then transition RUE on FWW Gait Training Gait Activity AD training Description safety use Device Used FWW Level of Assistance Mod > Min w/ gait belt Surface level Distance/Duration 101, 54, 165 ft Treatment Focus centered gait ( leans to L) Comments cuing for body closer to FWW, foot clearance and L quad facilitation to decrease risk buckling PT-OP-T Assessment and Plan Start: 12/29/19 07:29 Freq: Status: Active Protocol: Document 01/25/20 08:21 [facility] (Rec: 01/25/20 12:40 [facility] [id number]) Physical Therapy Assessment Goals quick dash Impairment 43.18 Flat Grinder Operator Goal (LTG) Pt will improve to 24 to show improved shoulder ability LTG Duration 02/28/20 mobility Short Term Goal (STG) Pt will improve active flex and abd to at least 80 deg ea STG Duration 01/28/20 Longterm Goal (LTG) Pt will have equal L shoulder ROM to other side in order to allow pt to do ADLs and do all overhead activities. LTG Duration 02/28/20 strength Short Term Goal (STG) Pt will be indepw ith HEP STG Duration 01/28/20 Longterm Goal (LTG) Pt will have equal LUE strength to RUE to show improved stability in order to do ADLs. LTG Duration 02/28/20 fall risk Impairment 23 Short Term Goal (STG) Pt will improve DE LA ROSA score to 28 to show dec risk for falls. STG Duration Flat Grinder Operator Goal (LTG) Pt will improve DE LA ROSA score to 36 toshow dec risk for falls to avoid futher shoulder injury LTG Duration 02/28/20 Assessment Summary Assessment Pt unsafe during sit to stands pushing on FWW, cued for HP and required Mod A for sit to stand and maintain midline during walking using FWW leaning to L and FWW tip L stating my walker doesn't stay down, something wrong with it. Donned PT dept gait belt for proper safety assist and educated need to wear one at all times with Max cuing for body close to FWW back legs, upright posture and wt shift with assist more over R and L knee quad facilitaiton awareness to decrease L knee unsteady and improved COG over BRENNON. Pt's L knee unsteady into buckling x3 during tx gait. Tx focused on ROM LE activation bike warm up then gait and transfers for safety proper pivot with FWW fully, hand placement and supine<> sitting log roll with CG> min A for LE needed. UE ROM improving and able to perform AROM on L and little DB #1 today with intiated serratus punch. Provided patient and Anjelica education on use of gait belt at all times, only mobilizing with to assist needs in standing safety and has appt with PCM soon to do further reassessment as to progressive LE strength, falls requires more physical assist . Pt last seen 01/04 and reported PT dept scheduling booked up and unable to get appts so seeing a decline. Pt has one more appt with me before follows up with PT on . Pt required Max A to assist elevated assist into car today, SBA. Pt reported his is the only caregiver and no other family nearby to help. Discussed with PT decline in strength, mobility and requiring more physical assist with Max safety cuing. PT will follow up with and physician and possibly recommend HHPT at this time. Pt would benefit from w/c follow or use vs walking with FWW as needed due to decreased in LE strength and activity tolerance. Physical Therapy Plan Frequency and Duration Frequency of Treatment 2x/Week Duration of Treatment 2 months Plan of Care Start Date 12/29/19 Plan of Care End Date 02/28/20 Therapeutic Interventions Therapeutic Interventions Aquatic Therapy,Balance Training,Gait Training,Home Exercise Program,Joint Mobilizations,Manual Therapy, Neuromuscular Re-education, Patient/Caregiver Education, Self-Care/Home Management,Soft Tissue Mobilization,Taping, Therapeutic Activities, Therapeutic Exercises Modalities Cold Pack/Ice Massage,Electric Stimulation,Hot Packs, Infrared Therapy,Ultrasound Next Visit Focus/Plan Next Note Type Treatment Note Next Visit Plan Assess response to tx. PT to call and physician on decline in mobility and possibly recommend HHPT for safety.
--- NOTE | 2020-01-26 18:52 | PT-OP ANOTE ---
I called Ciro and Anjelica and talked about follow up with primary and told them what to discuss (memory decline, inc difficulty w/mobility recently, falls getting worse, HH). I told him I do not want to have him coming in until he sees his MD. Pt and instructed to have with him with all mobility. I asked them to email or call me to let me know how MD appt goes.
--- NOTE | 2020-02-03 18:13 | PT.OTN ---
Current Diagnoses Adhesive capsulitis of left shoulder (02/03/20) Other abnormalities of gait and mobility (02/03/20) Abnormal posture (02/03/20) Weakness (02/03/20) Physical Therapy Treatment Note PT-OP-A Visit Information Start: 12/29/19 07:29 Freq: Status: Active Protocol: Document 02/03/20 17:42 [facility] (Rec: 02/03/20 18:13 [facility] [id number]) Out-Patient Physical Therapy Visit Information Visit Information Visit Type Treatment Note Visit Start Time 13:49 Visit Stop Time 14:34 Total Visit Minutes 45 Visit Number 5 Number of FRUIT STUFFER Visits 0 PT-OP-B Current Condition Start: 12/29/19 07:29 Freq: Status: Active Protocol: Document 12/29/19 15:37 [facility] (Rec: 12/29/19 11:16 [facility] [id number]) Current Condition History of Current Condition Onset Date about 4 months ago-got worse with more falls Current Complaints L shoulder History of Current Condition Pt reports he is now using the walker everywhere. He is constantly falling down. MD thinks he may have parkinson's . Pt fell a few times on L arm and he has history of L RCR. He reports it is slowly getting better. He can now do more elbow motions and can do some reaching across his body. Pt reports arm is getting a little better but is almost useless. Pt has difficulty turning in bed. He has had a few falls and is having trouble getting up d/t his L arm hurting. Pt reports falling almost every day sometimes a couple times in a day. He could not handle the initial meds d/t dizziness and is trying something new. Pt reports he starts tingling from wasit down whenever he stands up. Pt reports no numbness tingling in L arm. Pt has history of back pain, L RCR, falls, dizziness, neuropathy, and possible Parkinson's diagnosis. Prior Treatments and Tests some imaging; injection about a month ago in shoulder. Prior to injection pain into forearm Treatment Goals Patient/Caregiver Goals improve balance to dec falls on shoulder, be able to reach w/LUE PT-OP-C Subjective Start: 12/29/19 07:29 Freq: Status: Active Protocol: Document 02/03/20 17:42 [facility] (Rec: 02/03/20 18:13 [facility] [id number]) OP-PT Subjective Patient Comments Patient Comments Pt reports he had zoom visit with his primary MD which resulted in referrals for ortho & urology. He was told by MD to inc water in day and to get transport chair. PT-OP-D Balance Start: 12/29/19 10:37 Freq: Status: Active Protocol: Document 12/29/19 15:37 [facility] (Rec: 12/29/19 11:16 [facility] [id number]) Balance Tests De La Rosa Balance Test De La Rosa Balance Test Score 23/56 De [place] Rosa Impairment Rating 40 to 59% Impaired (Score 23- 33) PT-OP-J Posture/Palpation/Skin Start: 12/29/19 07:29 Freq: Status: Active Protocol: Document 12/29/19 15:37 [facility] (Rec: 12/29/19 11:16 [facility] [id number]) Posture Evaluation Comments Posture Comments fwd head and shoulders & inc kyphosis PT-OP-K Range of Motion Start: 12/29/19 07:29 Freq: Status: Active Protocol: Document 12/29/19 15:37 [facility] (Rec: 12/29/19 11:16 [facility] [id number]) Shoulder Goniometric Range of Motion Shoulder Left Passive Testing Position Supine Flexion 103 Abduction 90 External Rotation at 45 degrees 81 Abduction Internal Rotation 31 Right Active Flexion 132 Extension 62 Abduction 151 External Rotation at 0 degrees Abduction 22 Internal Rotation Behind Back (text) L4 Left Active Flexion 35 Extension 48 Abduction 36 External Rotation at 0 degrees Abduction 21 Internal Rotation Behind Back (text) buttocks PT-OP-L Special Tests Start: 12/29/19 07:29 Freq: Status: Active Protocol: Document 12/29/19 15:37 [facility] (Rec: 12/29/19 11:16 [facility] [id number]) Special Tests Shoulder Special Tests Drop Arm Rotator Cuff Test Results positive Empty Can Test Results unable to hold position to test Guzmán Melvin Impingement Test Results positive Neer Impingement Test Results positive AC Joint Compression Test Results positive PT-OP-M Strength Start: 12/29/19 07:29 Freq: Status: Active Protocol: Document 12/29/19 15:37 [facility] (Rec: 12/29/19 11:16 [facility] [id number]) Shoulder Strength Shoulder Manual Muscle Testing Right Flexion 4- Good- Extension 5 Normal Abduction (C5) 4- Good- External Rotation 3+ Fair+ Internal Rotation 5 Normal Left Extension 3+ Fair+ External Rotation 3- Fair- Internal Rotation 3 Fair Comments unable to test shoulder abd & flex d/t ROM lacking PT-OP-Q Treatments Start: 12/29/19 07:29 Freq: Status: Active Protocol: Document 02/03/20 17:42 [facility] (Rec: 02/03/20 18:13 [facility] [id number]) Therapeutic Activity Therapeutic Activity BP Comments after amb back 100ft 88/50; after sit to stand after resting & drinking water 86/64 at end of sesion 98/60 CG training Name where to hold gait belt when pt walking & to stay close car transfer Name edu to get closer to car before lifting LLE into car. Comments pt assisted w/car transfer min A sit to stand Reps/Minutes mulitple Comments cued L UE FWW, feet underneath him, push with RUE on chair to stand then transition RUE on FWW Gait Training Gait Activity AD training Description safety use Device Used FWW Level of Assistance CGA to MIn A/mod A at times Surface level Distance/Duration 100ft Comments cueing to keep closer to FWW Self-Care/Home Management Treatment Education Patient Education Fall Risk,Home Exercise Program,Safety Other Education Reviewing MD recommendations and encouraging same things ( inc water intake, getting transport chair & edu on why and where to get a chair), edu on needing to be with him at all times with mobility , discussing pt willingness to do HH vs clinic PT. PT-OP-T Assessment and Plan Start: 12/29/19 07:29 Freq: Status: Active Protocol: Document 02/03/20 17:42 [facility] (Rec: 02/03/20 18:13 [facility] [id number]) Physical Therapy Assessment Goals quick dash Impairment 43.18 Director Of Knowledge Management Goal (LTG) Pt will improve to 24 to show improved shoulder ability LTG Duration 02/28/20 mobility Short Term Goal (STG) Pt will improve active flex and abd to at least 80 deg ea STG Duration 01/28/20 Director Of Knowledge Management Goal (LTG) Pt will have equal L shoulder ROM to other side in order to allow pt to do ADLs and do all overhead activities. LTG Duration 02/28/20 strength Short Term Goal (STG) Pt will be indepw ith HEP STG Duration 01/28/20 Mcc Goal (LTG) Pt will have equal LUE strength to RUE to show improved stability in order to do ADLs. LTG Duration 02/28/20 fall risk Impairment 23 Short Term Goal (STG) Pt will improve DE LA ROSA score to 28 to show dec risk for falls. STG Duration Mcc Goal (LTG) Pt will improve DE LA ROSA score to 36 toshow dec risk for falls to avoid futher shoulder injury LTG Duration 02/28/20 Assessment Summary Assessment Pt cont to be unsafe with mobility and educated to stay with pt. pt is very signfiicantly declined since evaluation re: balance & re: safety. Shoulder ROM is imprvoing at he is close to 80 deg flex at this time and verbal review of exercises was done. Pt at this time is showing difficulty with leaving house but does require PT so I believe would bneefit from . Plan to discuss with MD Physical Therapy Plan Frequency and Duration Frequency of Treatment 2x/Week Duration of Treatment 2 months Plan of Care Start Date 12/29/19 Plan of Care End Date 02/28/20 Next Visit Focus/Plan Next Note Type Treatment Note Next Visit Plan Call MD and discuss transition to and pt decline
--- NOTE | 2020-02-03 18:13 | PT-OP ANOTE ---
Called primary MD Dr. Bishop and left message re: drops in BP, dec balance & activity tolerance and safety with mobility. Informed of pt difficulty with leaving the house and with in/out of the car and getting into clinic. Added pt may benefit from HH. Awaiting call back from .
--- NOTE | 2020-04-04 09:15 | PT.OPDS ---
Current Diagnoses Adhesive capsulitis of left shoulder (02/03/20) Other abnormalities of gait and mobility (02/03/20) Abnormal posture (02/03/20) Weakness (02/03/20) Visit Care Team Role Provider Type Selena Bishop MD Primary Care Provider Non-Staff Specialty: Medical Address: [address] [place] [address], [id number] Email: Rena Lawton PA-C Attending Provider Non-Staff Referring Provider Specialty: Medical Address: [address] [place] [address], [id number] Email: Visit Number Visit Number 5 Discharge Summary PT-OP-T Assessment and Plan Start: 12/29/19 07:29 Freq: Status: Active Protocol: Document 04/04/20 09:13 [facility] (Rec: 04/04/20 09:15 [facility] [id number]) Physical Therapy Assessment Assessment Summary Assessment Discsued w/ re: concern for pt to attend appointments d/t difficulty w/leaving the home. MD was to see pt and determine if she considering home PT appropriate. DC at this time d/t pt no longer attending OP PT. Physical Therapy Plan Discharge Physical Therapy Discharge Reasons No Longer Attending PT
== END 2020-04-07 08:50 ==
LOC: PHYS 13:45
PROVIDERS: PCP Family Medicine; Referring Provider Physician Assistant; Visit Provider Physician Assistant
DX: M75.02 Adhesive capsulitis of left shoulder (principal); R53.1 Weakness; R29.3 Abnormal posture; R26.89 Other abnormalities of gait and mobility
CPT/HCPCS: 97110; 97116; 97140; 97161; 97530; 97535